=== PATIENT | male | born 1955 | race Caucasian/White ===

== ENCOUNTER 2017-02-20 13:25 | Inpatient (IN) ==
--- NOTE | 2017-02-19 22:55 | Discharge Summary ---
<Syeda Bolivar L - Last Filed: 02/21/17 15:28> Date of Encounter: 02/21/17 - Discharge Diagnosis (1) Arthritis of right hip Priority: Primary Status: Chronic (2) Status post total hip replacement, right Priority: Primary Status: Acute (3) Chronic pain Priority: Secondary Status: Acute Qualifiers: Chronic pain type: chronic pain syndrome Qualified Code(s): G89.4 - Chronic pain syndrome (4) Hypertension Priority: Primary Status: Chronic Qualifiers: Hypertension type: essential hypertension Qualified Code(s): I10 - Essential (primary) hypertension (5) Diabetes mellitus Priority: Secondary Status: Chronic Qualifiers: Diabetes mellitus type: type 2 Diabetes mellitus complication status: without complication Diabetes mellitus nursing home insulin use: unspecified terminal manager insulin use status Qualified Code(s): E11.9 - Type 2 diabetes mellitus without complications (6) CKD (chronic kidney disease), stage IV Priority: Secondary Status: Chronic - Discharge Medications Home Medications: Albuterol Sulfate [Albuterol Inhaler] 2 puff IH Q6HR PRN 06/19/15 [History] Atorvastatin [Lipitor] 10 mg PO HS 06/19/15 [History] Melatonin [Melatin] 3 mg PO HS 06/19/15 [History] Sertraline [Zoloft] 100 mg PO DAILY 06/19/15 [History] traZODone [TraZODone] 300 mg PO HS PRN 06/19/15 [History] Amlodipine [Norvasc] 5 mg PO DAILY 30 Days 06/22/15 [Rx] Aspirin Enteric Coated [Aspirin EC] 325 mg PO DAILY #21 tablet. 02/19/17 [Rx] OxyCODONE Immed Rel [Roxicodone 5 MG] 5 - 10 mg PO Q6HR PRN #40 tablet 02/19/17 [Rx] Baclofen 20 mg PO TID 02/20/17 [History] Pregabalin [Lyrica] 150 mg PO BID 02/20/17 [History] Allergies/Adverse Reactions: Allergies adhesive tape Allergy (Verified 02/20/17 14:17) Hives [facility] - Patient Status Disposition: Home, Self-Care Condition: Good - Discharge Instructions Follow Up With: [facility] [Primary Care Provider] - - Hospital Course Hospital course: Mr. Severino is a 62 year old male - Time Spent with Patient Total time spent providing and/or coordinating discharge services: <Jason Mixon Gadiel - Last Filed: 02/22/17 08:07> Date of Encounter: 02/22/17 Time of Encounter: 08:05 - Discharge Diagnosis (1) Morbid obesity with BMI of 40.0-44.9, adult Priority: Secondary Status: Chronic (2) Hypertension Priority: Secondary Status: Chronic Qualifiers: Hypertension type: essential hypertension Qualified Code(s): I10 - Essential (primary) hypertension (3) Diabetes mellitus Priority: Secondary Status: Chronic Qualifiers: Diabetes mellitus type: type 2 Diabetes mellitus complication status: without complication Diabetes mellitus nursing home insulin use: unspecified nursing home insulin use status Qualified Code(s): E11.9 - Type 2 diabetes mellitus without complications (4) CKD (chronic kidney disease), stage IV Priority: Secondary Status: Chronic (5) Arthritis of right hip Priority: Primary Status: Chronic (6) Status post total hip replacement, right Priority: Primary Status: Acute (7) Chronic pain Priority: Secondary Status: Acute Qualifiers: Chronic pain type: chronic pain syndrome Qualified Code(s): G89.4 - Chronic pain syndrome (8) Acute blood loss anemia Priority: Primary Status: Acute [facility]: [facility] - Patient Status Functional capacity at discharge: uses cane/walker Overall status at discharge: patient is progressing back to baseline - Hospital Course Hospital course: Mr. Severino is a 62 year old male Status post right total hip replacement. Acute blood anemia asymptomatic. The patient had an uneventful postoperative course. They received antibiotics and physical therapy and were discharged in stable condition. There will follow -up in the office in 2 weeks. - Time Spent with Patient Total time spent providing and/or coordinating discharge services:
--- NOTE | 2017-02-20 13:36 | History & Physical Report ---
Date of Encounter: 02/20/17 Time of Encounter: 13:35 24 Hour HP Update - Instructions Instructions: If the History and Physical is less than 30 days old and was completed prior to A.M. admission and or procedure and has NOT been updated on calendar day of procedure please complete this update prior to performing procedure. - Update Patient reports changes in Medical Condition: No Changes in examination, assessment, or condition: No Changes in Medication: No Preop tests/diagnostics Reviewed: Yes Surgery Remains Indicated: Yes Consent for Planned Operative Procedure(s) Verified: Yes - Pre-Operative Checklist Preoperative Checklist Indicated: No Prophylactic Antibiotic Ordered: Yes Is VTE Prophylaxis Indicated?: Yes
[2017-02-20] MEDS ORDERED: *HR* Midazolam HCl 2 MG/2 ML VIAL ONE ×2 (13:39→15:45)
[2017-02-20] MEDS ORDERED: Ondansetron 4 MG/2 ML VIAL ONE ×2 (13:39→16:06)
[2017-02-20] MEDS ORDERED: *HR* FentaNYL (PF) 100 MCG/2 ML VIAL ONE ×2 (13:39→15:45)
[2017-02-20] MEDS ORDERED: *HR* Succinylcholine 200 MG/10 ML VIAL IVP ONE (13:39)
[2017-02-20] MEDS ORDERED: *HR* Propofol 200 MG/20 ML VIAL IVP ONE ×3 (13:39→15:45)
[2017-02-20] MEDS ORDERED: Lidocaine -MPF 2% 2 ML VIAL ONE ×2 (13:39→15:45)
[2017-02-20] MEDS ORDERED: CeFAZolin Pre 2,000 MG/100 ML 2,000 MG/100 ML BAG IVPB ONE (13:46)
[2017-02-20] MEDS ORDERED: CeFAZolin Pre 3,000 MG/100 ML 3,000 MG/100 ML BAG IVPB ONE (13:50)
[2017-02-20] MEDS ORDERED: Ringers Solution, Lactated 1,000 ML IVC SCH ×3 (14:00→18:25)
[2017-02-20] MEDS ORDERED: Famotidine 20 MG/2 ML VIAL IVP ONE (14:15)
[2017-02-20] MEDS ORDERED: Acetaminophen IV 1,000 MG/100 ML INFUS..BTL IVPB ONE (14:16)
[2017-02-20] MEDS ORDERED: Gabapentin 300 MG CAPSULE PO ONE (14:16)
--- NOTE | 2017-02-20 14:24 | Anesthesia Evaluation PreOp ---
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 Significant HX Other Medical History: Renal (CKD Stage 3), Diabetes Type II, Other (Obese) Anesthesia History: No Prior Anesthetic Complications Alcohol Use: none Drug use: none Medications and Allergies Albuterol Sulfate [Albuterol Inhaler] 2 puff IH Q6HR PRN 06/19/15 [History] Atorvastatin [Lipitor] 10 mg PO HS 06/19/15 [History] Melatonin [Melatin] 3 mg PO HS 06/19/15 [History] Sertraline [Zoloft] 100 mg PO DAILY 06/19/15 [History] traZODone [TraZODone] 300 mg PO HS PRN 06/19/15 [History] Amlodipine [Norvasc] 5 mg PO DAILY 30 Days 06/22/15 [Rx] Aspirin Enteric Coated [Aspirin EC] 325 mg PO DAILY #21 tablet. 02/19/17 [Rx] OxyCODONE Immed Rel [Roxicodone 5 MG] 5 - 10 mg PO Q6HR PRN #40 tablet 02/19/17 [Rx] Baclofen [Baclofen] 20 mg PO TID 02/20/17 [History] Pregabalin [Lyrica] 150 mg PO BID 02/20/17 [History] Allergies adhesive tape Allergy (Verified 02/20/17 14:17) Hives - Meds/Allergy Pre-op Review Medications Reviewed: Yes Allergies Reviewed: Yes Beta Blockers on Current Med List: No Anesthesia Results - Labs Laboratory Tests 02/17/17 02/17/17 16:10 16:10 Hgb 13.9 Hct 43.1 Plt Count 253 Sodium 141 Potassium 4.7 H BUN 29 H Creatinine 1.86 H - Imaging EKG: report reviewed (SR Incomplete Rt BBB) Anesthesia Exam O2 Sat Height 1.85 m Height 1.85 m Weight 135.624 kg Weight 135.624 kg O2 Sat by Pulse Oximetry 96 Vital Signs Temp Pulse Resp BP Pulse Ox 98.2 F 73 18 145/87 96 02/20/17 13:40 02/20/17 13:40 02/20/17 13:40 02/20/17 13:40 02/20/17 13:40 Height: 6'1 Weight: 299 lbs NPO (# of Hours): MN Pain Scale: 0 - HEENT Pupil (Motor): Pupils equal, EOMI Mallampati: III Teeth: Normal Oral Opening: Less than or equal to 3 - YARN TEXTURE MACHINE OPERATOR LOC: Oriented YARN TEXTURE MACHINE OPERATOR Motor: Normal RUE, Normal LUE, Normal RLE, Normal LLE, Normal Face YARN TEXTURE MACHINE OPERATOR Sensory: Normal: RUE, LUE, RLE, LLE, Face - Cardiac Rhythm: Regular Murmur: None JVD: No Carotid Bruit: No - Pulmonary Breath Sounds: bilateral Clear Respiratory Effort: Symmetrical Anesthesia Assess/Plan ASA Score: 3 (HTN DM CKD) Modified Nasreen Scale for Level of Consciousness: Cooperative, oriented, and tranquil Anesthetic Plan: General, Regional Monitoring Plan: Standard Monitors Recovery Plan: PACU (Discussed GA, agrees to proceed)
[2017-02-20] MEDS ORDERED: Dexamethasone 4 MG/ML VIAL ONE (16:06)
[2017-02-20] MEDS ORDERED: *HR* HYDROmorphone 2 MG/ML SYRINGE ONE (16:10)
[2017-02-20] MEDS ORDERED: Albuterol 2.5 MG/3 ML NEBULIZER IH ONE (16:11)
[2017-02-20] MEDS ORDERED: *HR* Meperidine 25 MG/ML SYRINGE IVP PRN (16:11)
[2017-02-20] MEDS ORDERED: Ondansetron 4 MG/2 ML VIAL IVP ONE (16:11)
[2017-02-20] MEDS ORDERED: *HR* Labetalol 20 MG/4 ML SYRINGE IVP PRN (16:11)
[2017-02-20] MEDS ORDERED: Naloxone 0.4 MG/ML INJ IVP PRN ×2 (16:11→18:25)
--- NOTE | 2017-02-20 17:00 | Orthopedic Operative Note ---
Date of procedure: 02/20/17 Pre-op diagnosis: right hip arthritis Post-op diagnosis: same Procedure: Procedure: Right Total Hip Replacment Estimated blood loss: 300 cc Hardware: Metal and polyethylene replacement. Biomet DM Cup: 60 G7 fin cup Priscilla revision stem: 15 x 1 50 sized a 50 mm body Head: head with Anali +3 Procedural Notes: Grade 4 arthritic changes femoral head acetabular socket patient noted to have calcar insufficiency during preparation of femur decision was made at this time to convert to Priscilla revision stem for distal fixation. Since there was a concern that proximal fixation was compromised. Operative procedure: The patient was brought to the operating room and placed on the operating room table. After general anesthesia was administered the patient was placed in the lateral decubitus position with the operative leg up. All pressure points were padded appropriately and the head was stabilized in the neutral position. The operative extremity was prepped and draped in the sterile surgical fashion patient received IV antibiotic prior to skin incision. A standard posterior approach is made to the operative hip, the incision was made through the skin and subcutaneous tissue hemostasis was obtained with Bovie cautery. Using careful sharp dissection the fascia was identified and incised exposing the external rotators. The external rotators were released off the greater trochanter and tagged with #2 FiberWire suture. The capsule was T'd open and the hip was brought into internal rotation. Patient noted to have grade 4 arthritic changes femoral head. The femoral neck cut was made at the appropriate level. An anterior capsulotomy was performed for the anterior retractor. Soft tissues removed from the acetabulum. Patient noted to have grade 4 arthritic changes acetabulum. Acetabulum was first reamed medially, and then reamed in 15 degrees of anteversion and 45 degrees off the horizontal. It was reamed up to the appropriate size 60 The appropriate-sized 60 acetabular cup was impacted in place in 15 degrees of anteversion and 45 degrees off the horizontal. This had good fit and fixation. The hip was brought back in to internal rotation and prepared with the box hinge and lock attacher followed by the canal finder followed by broaching process in 20 degrees anteversion. It was noted during preparation that there was calcar insufficiency proximal and that proximal fixation could not be obtained. The femur was then reamed distally to 15 x 150. A 15 x [address] stem was impacted in place. It was reamed proximally to a size A. Trial reduction in 20 degrees of anteversion and found the hip to be reducible. The real size A body was impacted in place and secured in 20 degrees of anteversion. Trial reduction found the hip to be stable with +3 head and Anali. The trials were removed and the real implants were impacted in place. The hip was reduced, patient had apparent equal leg lengths. The hip had excellent stability with forward flexion to 90 degrees adduction of 30 degrees and internal rotation of 60 degrees. The hip had no shuck. The hips after 2 minutes with a Betadine saline solution. It was irrigated out with 2 L of pulse irrigation. The hip was closed by the YOSVANY Hurtado. Fascia was closed with a running #2 PDS suture. The deep tissue was irrigated and closed deep with #1 PDS suture superficially with 0 PDS suture and skin was closed with Dermabond and skin fernando. The patient was placed in a sterile dressing and abduction pillow. The patient was extubated and transferred to the recovery room in stable condition. Anesthesia: GETA Surgeon: Jason Mixon Condition: stable Disposition: PACU
[2017-02-20] MEDS ORDERED: EPHEDrine 50 MG/ML VIAL ONE (17:01)
[2017-02-20] MEDS: *HR* HYDROmorphone (PF) 1 MG/ML SYRINGE IVP PRN ×5 (17:29→20:44)
[2017-02-20] MEDS ORDERED: *HR* Enoxaparin 30 MG/0.3 ML SYRINGE SQ SCH (18:00)
[2017-02-20 18:13] LABS: Hematocrit 40.1 % (37.5-50.1); Hemoglobin 13.2 g/dL (12.9-16.9)
[2017-02-20] MEDS ORDERED: *HR* Dextrose 50 % in Water (Syg) 50 ML SYRINGE IVP PRN (18:25)
[2017-02-20] MEDS ORDERED: D5% in Water 1,000 ML IVC PRN (18:25)
[2017-02-20] MEDS ORDERED: *HR* OxyCODONE Immed Rel 5 MG TABLET PO PRN (18:25)
[2017-02-20] MEDS ORDERED: ceFAZolin 3,000 MG in D5% in Water 100 ML IVPB SCH (18:25)
[2017-02-20] MEDS ORDERED: Dextrose Gel 15 GM PO PRN ×2 (18:25)
[2017-02-20] MEDS ORDERED: Ondansetron 4 MG/2 ML VIAL IVP PRN (18:25)
[2017-02-20] MEDS: Ascorbic Acid 500 MG TABLET PO SCH (18:39)
[2017-02-20] MEDS: Insulin LISPRO 300 UNITS/3 ML VIAL SQ SCH ×2 (18:46→21:30)
[2017-02-20] MEDS: *HR* OxyCODONE Immed Rel 5 MG TABLET PO PRN ×2 (18:47→23:01)
--- NOTE | 2017-02-20 19:03 | Anesthesia Evaluation Post Op ---
Date of Encounter: 02/20/17 Time of Encounter: 18:50 - Vital Signs Vital Signs: Last Vital Signs Temp 97.8 F 02/20/17 18:59 Pulse 73 02/20/17 18:59 Resp 18 02/20/17 18:59 BP 128/76 02/20/17 18:59 Pulse Ox 97 02/20/17 18:59 - Lungs Lungs: Clear Ascult./Percussion - Airway Airway: Non-obstructed - Cardiovascular Regular Rate - Mental Status Mental Status: Alert & Oriented, Answers Appropriately - Pain Pain Scale: 2 - Nausea Vomiting Nausea Vomiting: Not Present - Hydration Hydration: NPO - Discharge PostOp Status: Transfer Patient to floor
[2017-02-20] MEDS: Melatonin 3 MG TABLET PO SCH (20:44)
[2017-02-20] MEDS: Baclofen 10 MG TABLET PO SCH (20:44)
[2017-02-20] MEDS: Pregabalin 75 MG CAPSULE PO SCH (20:44)
[2017-02-20] MEDS ORDERED: Temazepam 15 MG CAPSULE PO PRN (21:00)
[2017-02-20] MEDS ORDERED: traZODone 50 MG TABLET PO PRN (21:00)
[2017-02-20] MEDS ORDERED: Sennosides 8.6 MG TABLET PO PRN (21:00)
[2017-02-20] MEDS ORDERED: MOM Conc 10 ML UD.LIQ PO PRN (21:00)
[2017-02-20] MEDS: ceFAZolin 3,000 MG in D5% in Water 100 ML IVPB SCH (22:55)
[2017-02-21] MEDS: *HR* HYDROmorphone (PF) 1 MG/ML SYRINGE IVP PRN ×3 (02:16→19:06)
[2017-02-21] MEDS: *HR* OxyCODONE Immed Rel 5 MG TABLET PO PRN ×4 (04:15→21:22)
[2017-02-21 06:01] LABS: Hematocrit 36.5 % (37.5-50.1); Hemoglobin 11.9 g/dL (12.9-16.9)
[2017-02-21] MEDS: ceFAZolin 3,000 MG in D5% in Water 100 ML IVPB SCH (06:16)
[2017-02-21] MEDS: *HR* Enoxaparin 30 MG/0.3 ML SYRINGE SQ SCH ×2 (06:16→17:36)
[2017-02-21 06:18] LABS: Calcium 8.8 mg/dL (8.6-10.8); Potassium 5.4 mEq/L (3.5-4.5)
--- NOTE | 2017-02-21 06:29 | Orthopedics Progress Note ---
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 Afebrile vital signs stable. Operative extremity: Neurovascularly intact Dressing clean dry and intact Calves nontender Assessment and plan: Continue with postoperative care Hematocrit 36 Objective Vital signs: Vital Signs Temp Pulse Resp BP Pulse Ox 02/21/17 06:24 70 160/83 02/21/17 04:54 97.8 F 81 22 166/76 93 02/21/17 00:08 97.8 F 76 20 145/79 92 02/20/17 21:13 97.7 F 70 16 117/72 96 02/20/17 19:53 97.8 F 74 18 128/67 98 02/20/17 18:59 97.8 F 73 18 128/76 97 02/20/17 18:42 97.6 F 74 16 151/74 97 02/20/17 18:05 97.9 F 72 12 151/76 95 02/20/17 17:55 97.9 F 75 16 142/78 93 02/20/17 17:45 82 16 155/86 94 02/20/17 17:35 88 16 188/104 95 02/20/17 17:25 97.4 F L 86 16 153/95 94 02/20/17 13:40 98.2 F 73 18 145/87 96 Intake and Output 02/20/17 02/20/17 02/21/17 15:59 23:59 07:59 Intake Total 100 / 100 900 / 900 Output Total 300 / 300 200 / 200 Balance -200 / -200 700 / 700 Intake: IV Fluids 100 / 100 100 / 100 Ancef Premix 3,000 MG/100 100 / 100 ML 3,000 mg In 100 ml @ 200 mls/hr IVPB PREOP ONE Rx#:[id number] Ancef 3,000 MG In 100 / 100 Dextrose 5% 100 ML @ 200 mls/hr IVPB Q8H JOSH Rx#: [id number] Oral 0 / 0 800 / 800 Output: Urine 200 / 200 Estimated Blood Loss 300 / 300 Other: Weight 135.624 kg Blood Glucose* 142 180 - Labs CBC & BMP: 02/21/17 04:49 02/21/17 04:49 Labs: Abnormal lab results Hgb 11.9 g/dL (12.9-16.9) L 02/21/17 04:49 Hct 36.5 % (37.5-50.1) L 02/21/17 04:49 Potassium 5.4 mEq/L (3.5-4.5) H 02/21/17 04:49 BUN 33 mg/dL (8-26) H 02/21/17 04:49 Creatinine 2.15 mg/dL (0.72-1.25) H 02/21/17 04:49 Est GFR ( Amer) 38 (> 60) L 02/21/17 04:49 Est GFR (Non-Af Amer) 31 (> 60) L 02/21/17 04:49 Glucose 259 mg/dL (70-99) H 02/21/17 04:49 POC Glucose 186 (58-89) H 02/20/17 21:23 Calculated Osmolality 306 (280-300) H 02/21/17 04:49 - VTE Documentation of Mechanical Device: Venous foot pump, device Consult Discharge Plan - Plan [facility]errals: [facility] [Primary Care Provider] -
[2017-02-21] MEDS: Insulin LISPRO 300 UNITS/3 ML VIAL SQ SCH ×4 (08:43→21:19)
[2017-02-21] MEDS: Multivit/Ca/Min/Fe/FA 1 TAB TABLET PO SCH (08:44)
[2017-02-21] MEDS: Pregabalin 75 MG CAPSULE PO SCH ×2 (08:45→21:19)
[2017-02-21] MEDS: amLODIPine 5 MG TABLET PO SCH (08:45)
[2017-02-21] MEDS: Ascorbic Acid 500 MG TABLET PO SCH ×2 (08:45→17:36)
[2017-02-21] MEDS: Baclofen 10 MG TABLET PO SCH ×3 (08:46→21:19)
--- NOTE | 2017-02-21 12:10 | Event Note ---
Date of Encounter: 02/21/17 Time of Encounter: 12:06 PCR - POD#1 - Right THR 02/20/17 Patient seen at bedside. History includes CKD III which he last saw job placement specialist 02/13/17 - Labs are relatively unchanged from his baseline GFR. Creatine slightly elevated and hyperkalemia noted. Asymptomatic, EKG normal. Will continue to encourage oral hydration as well as IV hydration. He also has BPH - ensuring he is taking appropriate medications and also avoiding Nephrotoxic agents. Pain control: adequate - he would like to D/C IV - so we will D/C IV - chronic pain - takes Percocet 5/325 BID Participating in PT. All questions and concerns addressed. Educated on use of incentive spirometer, ambulation, and hydration. Patient educated on post-operative restrictions and care. Addressed: Renal monitoring D/C plan: Possible ECF or HH placement, will await PT reassessment before placing continuities in chart.
[2017-02-21] MEDS ORDERED: D5% in Water 1,000 ML IVC PRN (13:19)
[2017-02-21] MEDS ORDERED: Dextrose Gel 15 GM PO PRN ×2 (13:19)
[2017-02-21] MEDS ORDERED: *HR* Dextrose 50 % in Water (Syg) 50 ML SYRINGE IVP PRN (13:19)
--- NOTE | 2017-02-21 15:33 | Electrocardiograph Report ---
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
[2017-02-21] MEDS: Melatonin 3 MG TABLET PO SCH (21:19)
[2017-02-22 05:06] LABS: Hematocrit 29.1 % (37.5-50.1)
[2017-02-22 05:26] LABS: Hemoglobin 9.8 g/dL (12.9-16.9)
[2017-02-22 05:27] LABS: Calcium 8.5 mg/dL (8.6-10.8); Potassium 4.2 mEq/L (3.5-4.5)
[2017-02-22] MEDS: *HR* Enoxaparin 30 MG/0.3 ML SYRINGE SQ SCH ×2 (05:27→17:32)
--- NOTE | 2017-02-22 08:08 | Orthopedics Progress Note ---
Date of Encounter: 02/22/17 Time of Encounter: 08:07 - Assessment and Plan (1) Morbid obesity with BMI of 40.0-44.9, adult Current Visit: Yes Status: Chronic (2) Hypertension Current Visit: No Status: Chronic Qualifiers: Hypertension type: essential hypertension Qualified Code(s): I10 - Essential (primary) hypertension (3) Diabetes mellitus Current Visit: No Status: Chronic Qualifiers: Diabetes mellitus type: type 2 Diabetes mellitus complication status: without complication Diabetes mellitus terminal operator insulin use: unspecified skilled nursing insulin use status Qualified Code(s): E11.9 - Type 2 diabetes mellitus without complications (4) CKD (chronic kidney disease), stage IV Current Visit: No Status: Chronic (5) Arthritis of right hip Current Visit: Yes Status: Chronic (6) Status post total hip replacement, right Current Visit: Yes Status: Acute (7) Chronic pain Current Visit: Yes Status: Acute Qualifiers: Chronic pain type: chronic pain syndrome Qualified Code(s): G89.4 - Chronic pain syndrome (8) Acute blood loss anemia Current Visit: Yes Status: Acute Subjective Interval history: Patient was seen this morning doing well without complaints. Afebrile vital signs stable. Operative extremity: Neurovascularly intact Dressing clean dry and intact Calves nontender Assessment and plan: Continue with postoperative care hemoglobin 9.8 asymptomatic DC today Objective Vital signs: Vital Signs Temp Pulse Resp BP Pulse Ox 02/22/17 07:05 99.0 F 85 16 149/80 95 02/22/17 03:46 99.6 F 91 18 105/67 94 02/21/17 23:46 99.2 F 81 15 137/56 94 02/21/17 19:43 99.9 F H 95 18 136/71 90 02/21/17 15:25 97.4 F L 83 18 134/69 94 02/21/17 11:25 97.7 F 85 18 150/69 95 Intake and Output 02/21/17 02/22/17 02/22/17 23:59 07:59 15:59 Intake Total 400 / 400 Output Total 150 / 150 800 / 800 Balance 250 / 250 -800 / -800 Intake: Oral 400 / 400 Output: Urine 150 / 150 800 / 800 Other: # Voids 1 Weight 136.6 kg Blood Glucose* 184 Patient Weight 02/22/17 23:59 Weight 136.6 kg - Labs CBC & BMP: 08/02/17 04:28 02/22/17 04:28 Labs: Abnormal lab results Hgb 9.8 g/dL (12.9-16.9) L D 02/22/17 04:28 Hct 29.1 % (37.5-50.1) L 02/22/17 04:28 BUN 40 mg/dL (8-26) H 02/22/17 04:28 Creatinine 2.26 mg/dL (0.72-1.25) H 02/22/17 04:28 Est GFR ( Amer) 36 (> 60) L 02/22/17 04:28 Est GFR (Non-Af Amer) 30 (> 60) L 02/22/17 04:28 Glucose 268 mg/dL (70-99) H 02/22/17 04:28 POC Glucose 283 (58-89) H 02/22/17 07:16 Calculated Osmolality 303 (280-300) H 02/22/17 04:28 Calcium 8.5 mg/dL (8.6-10.8) L 02/22/17 04:28 - VTE Documentation of Mechanical Device: Venous foot pump, device Consult Discharge Plan - Plan Referrals: [facility] [Primary Care Provider] -
[2017-02-22] MEDS: Insulin LISPRO 300 UNITS/3 ML VIAL SQ SCH ×4 (08:32→21:27)
[2017-02-22] MEDS: Pregabalin 75 MG CAPSULE PO SCH ×2 (08:34→22:13)
[2017-02-22] MEDS: amLODIPine 5 MG TABLET PO SCH (08:34)
[2017-02-22] MEDS: Ascorbic Acid 500 MG TABLET PO SCH ×2 (08:34→16:06)
[2017-02-22] MEDS: Multivit/Ca/Min/Fe/FA 1 TAB TABLET PO SCH (08:35)
[2017-02-22] MEDS: Baclofen 10 MG TABLET PO SCH ×3 (08:35→21:27)
--- NOTE | 2017-02-22 12:24 | Event Note ---
Date of Encounter: 02/22/17 Time of Encounter: 12:30 PCR - POD#2 - Right THR 02/20/17 Patient seen at bedside. 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 Mild bump in creatine and drop in GFR since surgery but still in stage III range. Potassium down to 4.2 today. Glucose elevated - sliding scale adjusted for improved coverage. Will continue to encourage oral hydration as well as IV hydration. He also has BPH - ensuring he is taking appropriate medications and also avoiding Nephrotoxic agents. Pain control: adequate - chronic pain - takes Percocet 5/325 BID Participating in PT. All questions and concerns addressed. Educated on use of incentive spirometer, ambulation, and hydration. Patient educated on post-operative restrictions and care. Addressed: Renal monitoring - Courtesy notice given to Dr. Darrion Byrd, his Service Architect of his status - discussed that likely his elevated glucose may be contributing to his changing labs. No official consult needed today, but will plan to repeat labs again in the morning and consult if creatinine rising rapidly. D/C plan: Possible ECF or HH placement, will await PT reassessment. Patient requesting ECF during today's PCR.
[2017-02-22] MEDS: Insulin DETEMIR 100 UNIT/ML X5UNITS SQ SCH (16:06)
[2017-02-22] MEDS: *HR* OxyCODONE Immed Rel 5 MG TABLET PO PRN ×2 (16:13→21:34)
--- NOTE | 2017-02-22 16:29 | Physician Discharge Referral ---
ExtendedCare Referral Info Transfer To: F Provider in Charge after Transfer: PCP Institutional Level of Care: Skilled - Diagnosis (1) Arthritis of right hip Priority: Primary Status: Chronic (2) Status post total hip replacement, right Priority: Primary Status: Acute (3) Chronic pain Priority: Secondary Status: Acute (4) Hypertension Priority: Secondary Status: Chronic (5) Diabetes mellitus Priority: Secondary Status: Chronic (6) CKD (chronic kidney disease), stage IV Priority: Secondary Status: Chronic Expected Duration of Placement: <30 days Prognosis: Good Aware of Diagnosis: Patient Aware of Prognosis: Patient - Transfer Medications Home Medications: Albuterol Sulfate [Albuterol Inhaler] 2 puff IH Q6HR PRN 06/19/15 [History] Atorvastatin [Lipitor] 10 mg PO HS 06/19/15 [History] Melatonin [Melatin] 3 mg PO HS 06/19/15 [History] Sertraline [Zoloft] 100 mg PO DAILY 06/19/15 [History] traZODone [TraZODone] 300 mg PO HS PRN 06/19/15 [History] Amlodipine [Norvasc] 5 mg PO DAILY 30 Days 06/22/15 [Rx] Aspirin Enteric Coated [Aspirin EC] 325 mg PO DAILY #21 tablet. 02/19/17 [Rx] OxyCODONE Immed Rel [Roxicodone 5 MG] 5 - 10 mg PO Q6HR PRN #40 tablet 02/19/17 [Rx] Baclofen 20 mg PO TID 02/20/17 [History] Pregabalin [Lyrica] 150 mg PO BID 02/20/17 [History] Allergies/Adverse Reactions: Allergies adhesive tape Allergy (Verified 02/20/17 14:17) Hives - Respiratory Orders None Smoking Cessation: Smoking cessation has been advised. For more information, call the [place] Tobacco Quit Line at 9-678-ELIM-NOW. - Lab Orders Lab Orders: CBC, Other (include drug levels w/frequency) (BMP - renal panel* CKD III) - Ancillary Orders May use pressure relief devices daily prn, May go on RANDALL w/family/respon alliance party w /meds at nurse discretion PRN, May consult with Dentist, Customer Service Teller, Painter Touch Up PRN - Mobility Orders Chair, Ambulate - Rehabiliation Orders Rehab Potential: Good Rehab Orders: ROM Exercises, Evaluation for Physical Therapy, Evaluation for Occupational Therapy - Treatments List/Other: Opsite dressing, leave intact until first post-operative visit. If dressing becomes >50% saturated, contact office, remove dressing and place appropriate dressing in its place. Do not allow for dressing to get wet. [place] in place, plan to remove at post-operative day #14-16. Total Joint Precautions x 6 weeks Apply cold therapy wrap 3-6x/day for 20 minutes at a time. Encourage ambulation throughout the day Use Incentive spirometer 10x/hour. Elevate affected extremity above heart as tolerated. Brace: Wear knee immobilizer at night x 2 weeks. - Diet Orders Renal CERTIFICATION: I certify that the transfer of the above named patient to an Extended Care Facility is necessary for the continuing treatment of the diagnosis listed. The above information is true and accurate reflection of patient's current condition. Confidential - Redisclosure prohibited without a patient's written consent.
[2017-02-22] MEDS: Melatonin 3 MG TABLET PO SCH (21:27)
[2017-02-23 01:36] LABS: Calcium 8.7 mg/dL (8.6-10.8); Potassium 3.8 mEq/L (3.5-4.5)
[2017-02-23] MEDS: *HR* OxyCODONE Immed Rel 5 MG TABLET PO PRN (04:40)
[2017-02-23] MEDS: *HR* Enoxaparin 30 MG/0.3 ML SYRINGE SQ SCH (05:49)
--- NOTE | 2017-02-23 06:27 | Orthopedics Progress Note ---
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 insulin use: unspecified mcc insulin use status Qualified Code(s): E11.9 - Type 2 diabetes mellitus without complications (4) CKD (chronic kidney disease), stage IV Current Visit: No Status: Chronic (5) Arthritis of right hip Current Visit: Yes Status: Chronic (6) Status post total hip replacement, right Current Visit: Yes Status: Acute (7) Chronic pain Current Visit: Yes Status: Acute Qualifiers: Chronic pain type: chronic pain syndrome Qualified Code(s): G89.4 - Chronic pain syndrome (8) Acute blood loss anemia Current Visit: Yes Status: Acute Subjective Interval history: Patient was seen this morning doing well without complaints. Afebrile vital signs stable. Operative extremity: Neurovascularly intact Dressing clean dry and intact Calves nontender Assessment and plan: Continue with postoperative care DC today Objective Vital signs: Vital Signs Temp Pulse Resp BP Pulse Ox 02/23/17 00:37 98.5 F 78 20 138/79 91 02/22/17 22:25 99.0 F 95 19 153/75 95 02/22/17 15:29 99.2 F 85 18 162/72 92 02/22/17 11:00 99.3 F 95 18 151/75 92 02/22/17 07:05 99.0 F 85 16 149/80 95 Intake and Output 02/22/17 02/22/17 02/23/17 15:59 23:59 07:59 Intake Total 760 / 760 320 / 320 Output Total 600 / 600 1325 / 1325 100 / 100 Balance 160 / 160 -1005 / -1005 -100 / -100 Intake: Oral 760 / 760 320 / 320 Output: Urine 300 / 300 600 / 600 100 / 100 Catheter 300 / 300 725 / 725 Other: Meal Lunch Percent of Meal Consumed 100% Blood Glucose* 224 248 - Labs CBC & BMP: 02/22/17 04:28 02/23/17 00:31 Labs: Abnormal lab results Hgb 9.8 g/dL (12.9-16.9) L D 02/22/17 04:28 Hct 29.1 % (37.5-50.1) L 02/22/17 04:28 BUN 40 mg/dL (8-26) H 02/23/17 00:31 Creatinine 2.20 mg/dL (0.72-1.25) H 02/23/17 00:31 Est GFR ( Amer) 37 (> 60) L 02/23/17 00:31 Est GFR (Non-Af Amer) 30 (> 60) L 02/23/17 00:31 Glucose 219 mg/dL (70-99) H 02/23/17 00:31 POC Glucose 224 (58-89) H 02/22/17 15:56 - VTE Documentation of Mechanical Device: Intermittent pneumatic compression device Consult Discharge Plan - Plan [facility]errals: [facility] [Primary Care Provider] -
[2017-02-23] MEDS: amLODIPine 5 MG TABLET PO SCH (07:59)
[2017-02-23] MEDS: Insulin LISPRO 300 UNITS/3 ML VIAL SQ SCH ×2 (08:00→11:46)
[2017-02-23] MEDS: Ascorbic Acid 500 MG TABLET PO SCH (08:00)
[2017-02-23] MEDS: Baclofen 10 MG TABLET PO SCH (08:00)
[2017-02-23] MEDS: Multivit/Ca/Min/Fe/FA 1 TAB TABLET PO SCH (08:00)
[2017-02-23] MEDS: Pregabalin 75 MG CAPSULE PO SCH (08:00)
[2017-02-23] MEDS: Insulin DETEMIR 100 UNIT/ML X5UNITS SQ SCH (09:06)
[2017-02-23 11:28] VITALS: BP 133/70
--- NOTE | 2017-02-23 11:36 | Event Note ---
Date of Encounter: 02/23/17 Time of Encounter: 11:34 PCR - POD#3 - Right THR 02/20/17 H/H 8.04/19 - Asymptomatic Patient seen at bedside. History includes CKD III which he last saw physical education aide 02/13/17 - Labs are relatively unchanged from his baseline GFR and Creatinine. Renal panel stable since surgery but still in stage III range. Potassium normalized. Glucose elevated - sliding scale adjusted for improved coverage. Will continue to encourage oral hydration as well as IV hydration. He also has BPH - ensuring he is taking appropriate medications and also avoiding Nephrotoxic agents. Pain control: adequate - chronic pain - takes Percocet 5/325 BID Participating in PT. All questions and concerns addressed. Educated on use of incentive spirometer, ambulation, and hydration. Patient educated on post-operative restrictions and care. Addressed: Renal monitoring - Courtesy notice given to Dr. Darrion Byrd, his Accelerator Technician of his status yesterday - discussed that likely his elevated glucose may be contributing to his changing labs. No official consult needed but will plan to repeat labs again in the morning and consult if creatinine rising rapidly. D/C plan: ECF placement. [facility] D/C today
[2017-02-23 12:21] LABS: Hematocrit 27.2 % (37.5-50.1); Hemoglobin 8.9 g/dL (12.9-16.9)
== END 2017-02-23 14:05 | disposition home or self-care (01) | DRG 470 ==
LOC: SAMDAY 13:25 → 3NENU 18:08
PROVIDERS: ADMIT Orthopaedic Surgery; ATTEND Orthopaedic Surgery

== ENCOUNTER 2017-10-30 08:26 | Inpatient (IN) ==
[2017-10-30] MEDS ORDERED: Aminoglycoside Consult 1 EACH MC ONE (08:33)
--- NOTE | 2017-10-30 10:23 | Internal Med History&Physical ---
Date of Encounter: 10/30/17 Time of Encounter: 10:16 Assessment and Plan (1) Aspiration pneumonia Current visit: Yes Status: Acute Patient transfer will consult some of aspiration pneumonia is unclear if patient has aspiration pneumonia from conflicting x-rays is not having any complaint productive cough no respiratory symptoms per se Qualifiers: Aspiration pneumonia type: unspecified Laterality: bilateral Lung location: lower lobe of lung Qualified Code(s): J69.0 - Pneumonitis due to inhalation of food and vomit (2) Septic joint of left knee joint Current visit: Yes Status: Acute Patient had a recent left knee surgery with a recent fall on the knee with the swelling and warmth consult for septic arthritis will consult orthopedic Qualifiers: Septic arthritis organism: due to unspecified organism Qualified Code(s): M00.9 - Pyogenic arthritis, unspecified (3) Leukocytosis Current visit: Yes Status: Acute Leukocytosis likely secondary to infected left main Qualifiers: Leukocytosis type: bandemia Qualified Code(s): D72.825 - Bandemia (4) Falls frequently Current visit: Yes Status: Acute Patient noted 2 over chronic opiate use and has a patch has been there for more than a week possible has been drowsy from narcotic was given Narcan also an outside hospital ABG is unremarkable (5) NANI (acute kidney injury) Current visit: No Status: Acute Acute on chronic kidney injury with continue IV hydration (6) Hypertension Current visit: No Status: Chronic Chronic and on control will resume home medication and make some adjustment Qualifiers: Hypertension type: essential hypertension Qualified Code(s): I10 - Essential (primary) hypertension (7) Diabetes mellitus Current visit: No Status: Chronic Chronic had episode of hypoglycemia patient can eat and will place on sliding scale Qualifiers: Diabetes mellitus type: type 2 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 Severino is a 62 year old male Patient with the transferred from [facility] . Patient with history of hypertension, diabetes, obesity, depression and high cholesterol. Patient had a recent surgery to left knee October 16 has follow-up appointment with orthopedics surgeon on November 04. Patient has been somewhat confused in the last few days has had multiple fall and then while getting out of commode he fell again on his left knee of which he has surgery with increased pain and swelling but did not want to come to emergency room but the son decided to call EMS and brought him to the emergency room [facility] Emergency room evaluation patient was somewhat somnolent basic Accu-Chek was of 59 given amp of D50 and then he woke up. Because of positive d-dimer and CT A of the chest was done which showed no pulmonary embolism but the conflicting x-ray showed bilateral consolidation concern for aspiration pneumonia. Patient left knee was also swollen and warm and hot the same knee that he had surgery concern for septic arthritis patient was given vancomycin and Zosyn then transfer on arrival here he is awake able to answer questions appropriately. Patient will be admitted will continue him on Zosyn and vancomycin consult orthopedic for possible septic knee or hamathrosis and consult ID as well. He is not having any fever or chills not coughing up phlem Past Med Surg Social Fam HX - Past Medical History Medical history: diabetes, hypertension Psychiatric history: no psych history - Past Surgical History Surgical History: appendectomy, knee replacement, orthopedic, other - Social History Smoking Status: Former smoker Smokeless Tobacco Status: No Alcohol use: none Drug use: none - Family History Father Adopted: No Living Status: Hx Family Cardiac Disorders: Yes (Patients father from an [place]. He states that it was his 7th [place].) Hx Family Respiratory Disorders: No Hx Family Cancer: No Hx Family GI Disorders: No Hx Family Endocrine Disorder: No Hx Family Neuromuscular Disorders: No Hx Family Neurologic Disorders: No Hx Family HEENT Disorders: No Hx Family Autoimmune Disorders: No Internal Medicine - H&P: Meds Albuterol Sulfate [Albuterol Inhaler] 2 puff IH Q6HR PRN 06/19/15 [History] Atorvastatin [Lipitor] 10 mg PO HS 06/19/15 [History] Melatonin [Melatin] 3 mg PO HS 06/19/15 [History] Sertraline [Zoloft] 100 mg PO DAILY 06/19/15 [History] traZODone [TraZODone] 300 mg PO HS PRN 06/19/15 [History] Amlodipine [Norvasc] 5 mg PO DAILY 30 Days tablet 06/22/15 [Rx] Aspirin Enteric Coated [Aspirin EC] 325 mg PO DAILY #21 tablet. 02/19/17 [Rx] OxyCODONE Immed Rel [Roxicodone 5 MG] 5 - 10 mg PO Q6HR PRN #40 tablet 02/19/17 [Rx] Baclofen 20 mg PO TID 02/20/17 [History] Pregabalin [Lyrica] 150 mg PO BID 02/20/17 [History] 3 Allergy/AdvReac Type Severity Reaction Status Date / Time adhesive tape Allergy Hives Verified 02/20/17 14:17 All Systems PM: A 10-system review of systems was performed and is negative for pertinent findings except as documented above in the HPI. - Constitutional Constitutional: as per HPI, fatigue, lethargy - EENT Eyes: no change in vision, no discharge, no pain, no photophobia Ears: no ear discharge, no ear pain, no tinnitus Nose, mouth and throat: no dysphagia, no nasal discharge, no neck pain, no sore throat - Cardiovascular Cardiovascular ROS IM: no chest pain, no diaphoresis, no dyspnea, no lightheadedness, no palpitations, no syncope - Respiratory Respiratory: dyspnea - Gastrointestinal Gastrointestinal: no abdominal pain, no diarrhea, no hematemesis, no hematochezia, no melena, no nausea, no vomiting - Musculoskeletal Musculoskeletal ROS IM: as per HPI, stiffness, no numbness, no tingling - Eye Eye exam: Present: PERRL, conjuntiva pink, sclera anicteric Pupils: Present: PERRL - Neck Neck exam general surgery: Present: supple, trachea midline. Absent: lymphadenopathy - Respiratory Respiratory exam: Present: CTAB. Absent: accessory muscle use, rales, rhonchi, wheezes - Cardiovascular Cardiovascular exam: Present: RRR, +S1, +S2. Absent: diastolic murmur, gallop, rubs, systolic murmur - GI/Abdominal GI/Abdominal exam: Present: normal bowel sounds, soft, no peritoneal signs. Absent: distended, tenderness - Extremities Exam Extremities exam: Present: tenderness, warm
[2017-10-30] MEDS ORDERED: Naloxone 0.4 MG/ML INJ IVP PRN (10:32)
[2017-10-30] MEDS ORDERED: Dextrose Gel 15 GM/37.5 ML TUBE PO PRN ×2 (10:37)
[2017-10-30] MEDS ORDERED: *HR* Dextrose 50 % in Water (Syg) 50 ML SYRINGE IVP PRN (10:37)
[2017-10-30] MEDS ORDERED: D5% in Water 1,000 ML IVC PRN (10:37)
[2017-10-30] MEDS: 0.9 % Sodium Chloride 1,000 ML IVC SCH (11:25)
[2017-10-30] MEDS: traMADol 50 MG TABLET PO PRN ×2 (11:26→23:38)
[2017-10-30] MEDS: Insulin LISPRO 300 UNITS/3 ML VIAL SQ SCH ×3 (11:27→20:18)
--- NOTE | 2017-10-30 11:39 | Infectious Disease Consult ---
Date of Encounter: 10/30/17 Time of Encounter: 11:33 Assessment and Plan (1) Leukocytosis Status: Acute Assessment and plan: Likely secondary to aspiration PNA. WBC elevated at 12.4 with neutrophilic predominance. No other SIRS criteria noted. Continue to trend. Qualifiers: Leukocytosis type: bandemia Qualified Code(s): D72.825 - Bandemia (2) Aspiration pneumonia Status: Acute Assessment and plan: Likely secondary to altered mental status. Location: Bilateral. Causative organism unclear. CT of the chest shows bilateral dependent consolidative airspace opacities with scattered nodular airspace opacities consistent with aspiration pneumonia and debris in the trachea. Continue Zosyn 3.375 grams IV Q8H. Dosed for CrCl ~37. Discontinue Vancomycin. Low index of suspicion for MRSA pneumonia. Duration of treatment depends on the clinical picture. Monitor renal function and dose-adjust antibiotics. Qualifiers: Aspiration pneumonia type: unspecified Laterality: bilateral Lung location: lower lobe of lung Qualified Code(s): J69.0 - Pneumonitis due to inhalation of food and vomit (3) Altered mental status Status: Acute Assessment and plan: Likely multifactorial: hypoxia + narcotic medications + infection. Improved after Narcan administration in the ER. CT head is negative for acute findings. Continue to monitor closely. Qualifiers: Altered mental status type: disorientation Qualified Code(s): R41.0 - Disorientation, unspecified (4) Falls frequently Status: Acute Assessment and plan: Likely multifactorial. Falls precautions. PT/OT to evaluate. (5) CKD (chronic kidney disease), stage III Status: Acute Assessment and plan: Serum creatinine stable at 2.05. Previously evaluated by nephrology. Continue to trend. Strict I's and O's. Avoid nephrotoxins. Dose-adjust antibiotics. (6) Diabetes mellitus Status: Chronic Assessment and plan: HgbA1C checked in January was 7.5%. Recommend aggressive glucose monitoring and control to promote wound healing and prevent infection. Management per the primary team. 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 Encinas. Clinically, the patient's knee does not appear infected. There is some mild postop swelling, but no marked erythema or drainage from the surgical incision. Check inflammatory markers, ESR and CRP. May need to consider imaging of the knee, but orthopedics has been consulted and will defer to them. Qualifiers: Laterality: left Qualified Code(s): Z96.652 - Presence of left artificial knee joint Infectious Disease HPI - Data of Consult Patient: new to practice Consult date: 10/30/17 Requesting Physician: Tala Villagomez CNP [facility] Provider[facility] - Consult Narrative Reason for consult: Possible PJI, aspiration PNA History of present illness: Mr. Severino is a 62 year old male with a past medical history of insulin- dependent diabetes, hypertension, see [place] stage III, and previously treated hepatitis C status post left total knee replacement October 16 at [facility]. The patient was admitted to the hospital November 09 for altered mental status and aspiration pneumonia. We are consulted October 30 for further recommendations regarding possible prosthetic joint infection and aspiration pneumonia. Briefly, the patient's a 62-year-old male with past medical history as stated above. The patient's mental status somewhat limits his ability to provide me with information, so most of the information is obtained from the medical records. Apparently, the patient presented to Psych[facility] with complaints of falling and left knee pain. Apparently, on the day prior to admission he fell at home on attempting to get up from the toilet after he lost his balance. He states his son called EMS and they helped him back up, but he refused transfer to the hospital at that time. He states later that night he spilled some water and was having increased left knee pain so he decided to come to the ER. Upon arrival to the ER, the patient was afebrile and hemodynamically stable. He did have a leukocytosis with neutrophilic predominance. Additional labs revealed serum creatinine elevation consistent with see [place] stage III. LFTs were negative. Urine drug screen was negative. Urinalysis was negative. He did have an elevated d-dimer and a CTA of the chest was negative for PE, but did show bilateral dependent consolidation airspace opacities with scattered nodular airspace opacities consistent with aspiration pneumonia as well as debridement in the trachea. Lactic acid was normal. Troponin is negative. ABGs revealed hypoxemia. CT of the head was negative. Blood cultures were obtained 2 sets and are currently pending. He was given 3 doses of Narcan which seemed to improve his mental status. He was also given IV Zosyn and IV vancomycin and transferred here for further evaluation. Since admission, the patient has remained afebrile and hemodynamically stable. His mental status somewhat precludes his ability to provide me with any information regarding the events leading up to his hospitalization. The patient is very drowsy and is somewhat somnolent and is very difficult to keep awake during my exam and interview. He states that he has not had any fevers or chills or rigors. He denies any headache or neck pain. He denies any congestion, earache, or sore throat. He denies any nausea or vomiting, but does report one episode of diarrhea couple days ago. He denies any abdominal pain. He states his appetite is okay. He states he fell secondary to losing his balance while attempting to get up off the commode. He denies any weakness or dizziness. He reports increased left knee pain since falling. He states Dr. Encinas did his surgery due to severe osteoarthritis of the left knee. He states he scheduled to see Dr. Encinas on November 04 in the office. He denies any other acute pain issues, does report chronic back pain that appears to be at baseline. He reports that he has a bruise to the right flank that is of unknown etiology. He denies any urinary complaints including frequency or dysuria. He denies any oral thrush or new skin lesions. According to the patient, he lives at home with his . He has 2 dogs in the house. He denies recent travel. He is off work on disability. He denies any tobacco, alcohol, or illicit drug use. CC: Tala Villagomez CNP Past Med Surg Social Fam HX - Past Medical History Attestation: Yes The following information was validated with the patient. Source: patient, old records reviewed, nursing notes reviewed Medical history: diabetes, hypertension, renal disease (CKD III), other (Hep C, previously treated) Psychiatric history: no psych history - Past Surgical History Surgical History: appendectomy, knee replacement (Left September 2017.), orthopedic , other - Social History Smoking Status: Former smoker Smokeless Tobacco Status: No Alcohol use: none Drug use: none Occupational status: disabled Current living situation: Home, With Family Activity Level: Independent ambulation Recent Out of Country Travel Within the Last 8 Weeks: No Exposure or Possible Exposure to Illness During Travel: No - Family History Father Adopted: No Living Status: Hx Family Cardiac Disorders: Yes (Patients father from an [place]. He states that it was his 7th [place].) Hx Family Respiratory Disorders: No Hx Family Cancer: No Hx Family GI Disorders: No Hx Family Endocrine Disorder: No Hx Family Neuromuscular Disorders: No Hx Family Neurologic Disorders: No Hx Family HEENT Disorders: No Hx Family Autoimmune Disorders: No Infectious Disease-CN:Meds Albuterol Sulfate [Albuterol Inhaler] 2 puff IH Q6HR PRN 06/19/15 [History] Atorvastatin [Lipitor] 10 mg PO HS 06/19/15 [History] Melatonin [Melatin] 3 mg PO HS 06/19/15 [History] Sertraline [Zoloft] 100 mg PO DAILY 06/19/15 [History] traZODone [TraZODone] 300 mg PO HS PRN 06/19/15 [History] Amlodipine [Norvasc] 5 mg PO DAILY 30 Days tablet 06/22/15 [Rx] Aspirin Enteric Coated [Aspirin EC] 325 mg PO DAILY #21 tablet. 02/19/17 [Rx] OxyCODONE Immed Rel [Roxicodone 5 MG] 5 - 10 mg PO Q6HR PRN #40 tablet 02/19/17 [Rx] Baclofen 20 mg PO TID 02/20/17 [History] Pregabalin [Lyrica] 150 mg PO BID 02/20/17 [History] 3 Allergy/AdvReac Type Severity Reaction Status Date / Time adhesive tape Allergy Hives Verified 02/20/17 14:17 All systems: reviewed and no additional remarkable complaints except as stated Exam - Constitutional Vitals: Temp Pulse Resp BP Pulse Ox 99.1 F 77 16 167/69 92 10/30/17 10:23 10/30/17 10:23 10/30/17 10:23 10/30/17 10:23 10/30/17 10:23 General appearance: cooperative, no acute distress, obese - Head Head exam: Present: atraumatic, normal inspection, normocephalic - Eye Eye exam: Present: EOMI, normal appearance, PERRL Pupils: Present: normal accommodation - ENT ENT exam: Present: mucous membranes moist Additional comments: Thick mucous secretions noted in the oral cavity. - Neck Neck exam: Present: normal inspection - Respiratory Respiratory exam: Present: rhonchi (Throughout). Absent: CTAB, rales, respiratory distress, wheezes - Cardiovascular Cardiovascular exam: Present: RRR, +S1, +S2 - GI/Abdominal GI/Abdominal exam: Present: distended (obese), normal bowel sounds, soft. Absent: tenderness - Extremities Exam Extremities exam: Present: joint swelling (Mild, left knee), pedal edema (Trace BLE), tenderness (LEft knee) Additional comments: Left knee with expected post-op edema. Surgical site with wound edges well- approximated and fernando intact. ROM not assessed. Pinpoint area of bloody drainage noted to the distal aspect of the surgical site. No erythema or warmth noted. - Back Exam Additional comments: Ecchymosis noted to the right flank. - Neurological Exam Neurological exam: Present: alert, oriented X3, no focal deficits - Psychiatric Psychiatric exam: Present: normal affect, normal mood - Skin Skin exam: Present: dry, intact, normal color, warm Infectious Disease CN: Results - Labs CBC & Chem 7: 10/30/17 12:00 Consult Discharge Plan - Plan Referrals: [facility],PC[facility] [Primary Care Provider] - - Attending Attestation I examined this patient and my medical decision-making was reviewed with the Resident Physician. I agree with the documented findings, disposition and treatment plan as described except to the extent set forth below. This is an addendum to original report dictated by Ira Kunz CNP, please refer to Jasmin curry for full detail. Patient is a 62-year-old gentleman with past medical history mentioned below including diabetes mellitus type 2, hyperlipidemia, chronic kidney disease stage III with history of hepatitis C that was treated in the past came in to with altered mental status. Most of the information was taken from medical records since the patient is not the best historian based on his mentation. Patient apparently had a total knee arthroplasty of the left knee at [facility] on October 16 of this year. Patient apparently had a fall the day prior to admission and the squad was called but the patient refused to come to the hospital. Patient continued to get more confused and apparently was brought into an outlying facility with the altered mental status and left knee pain. Patient was evaluated at the outside facility his MAXIMUM TEMPERATURE was 99.1, he did have blood cultures obtained with results pending and a urine was negative. Patient did have a d-dimer which was elevated at 2500. Patient was transferred here for further workup and evaluation. Since arrival patient has been afebrile, no labs have been obtained other than for CRP of 113 ESR 43 and a BUN of 36 creatinine of 2.03. WBC has not been obtained. A chest x-ray was done which was negative a CT head was done which was negative and a CT chest shows aspiration pneumonia. My NURSE PARALEGAL mentions that when she evaluated him he had gastric content in his mouth. Patient was started on broad-spectrum antibiotics we were consulted to evaluate the patients make further recommendations. Currently patient laying in bed appears comfortable with no acute disc distress. Assessment and plan fall Aspiration pneumonia - patient previously had to MRSA screens done in the last year both of which came back negative Recent history of total knee arthroplasty of the left Acute on chronic kidney disease Altered mental status likely secondary to high dose of pain medications At this point I believe the patient had aspiration pneumonia secondary to being on high-dose painkillers. Patient had MRSA screen the past that came back negative, repeat MRSA screen, if negative I recommend the seeing vancomycin and discontinuing Zosyn for now. Monitor kidney function closely and monitor for drug toxicity. We will stop vancomycin Duration of treatment likely 10-14 days Consider doing a swallow evaluation.
[2017-10-30] MEDS: Piperacillin/Tazobactam 3.375 GM in 0.9 % Sodium Chloride Mini Bag 100 ML IVPB SCH ×4 (11:54→23:39)
[2017-10-30 12:31] LABS: BUN/Creatinine Ratio 18 (6-26); Blood Urea Nitrogen 36 mg/dL (8-23); eGFR For African Americans 41 (> 60); eGFR For Non-African Americans 33 (> 60)
[2017-10-30] MEDS: Baclofen 10 MG TABLET PO SCH ×2 (16:47→21:37)
[2017-10-30] MEDS: *HR* OxyCODONE Immed Rel 5 MG TABLET PO PRN (16:58)
--- NOTE | 2017-10-30 18:53 | Orthopedic Consult Note ---
Date of Encounter: 10/30/17 Time of Encounter: 11:00 Assessment and Plan (1) Status post total knee replacement, left Current Visit: Yes Status: Acute Patient is 2 weeks s/p Left TKR, with expected post-operative swelling. At this time, I am not concerned for septic knee (2) Knee effusion, left Current Visit: Yes Status: Acute Patient has limited pain with mobility. He is able to ambulate without extreme pain. With reported falls, and recent surgery, noted effusion is to be expected. Aspiration of the knee is not recommended at this time. At this time, there is not a concern with prosthetic joint infection. Incision healing appropriately. Fernando in place, and will need to be removed soon. Patient requesting to follow up with [facility] for these to be removed. Recommending to monitor, and if knee pain begins to worsen, orthopedics will gladly re-evaluate. Nurse has reached out to office to discuss patient and arrange follow up. Incision was cleansed, new opsite applied while he is in the hospital. Abrasions to be cleansed and adaptic applied with kerlix dressing. Change these dressings daily. Start PT/OT for Left knee. DVT prophylaxis. Continue with pain control per hospitalist team. Orthopedics will sign off, thank you for the consult. History of Present Illness Chief complaint: AMS HPI: Mr. Severino is a 62 year old male, s/p Left TKR 10/16/[address] Ambrose at [facility] He presented to [facility] for AMS. Orthopedics consulted for concern of Left Septic Knee. Patient currently in no pain to Left knee, he is able to ambulate without difficulty. Admits to swelling and minimal tenderness with palpation along calf and lower legs. Denies N/T, radiation of pain. He does admit to 2 falls since his surgery and readmission to [facility]. He states he has yet to see orthopedic office, and has not started PT yet. He denies history of infection, drainage from incision or instability to knee. Since his admission, he is afebrile, vital stable. CRP 110, ESR mildly elevated - possibly related to recent surgery and aspiration pneumonia. Labs otherwise WNL. Left Knee: Incision - well healed, fernando in place. No erythema, drainage or purulence noted. No warmth, moderate effusion noted Minimal tenderness to medial and lateral joint lines and to anterior thigh. No instability. ROM - limited, painfree PROM. AROM limited to approx 50 degrees secondary to swelling. Strength: extension intact, flexion intact. NV intact. Skin: warm, dry Lesions noted to posterior knee - 2 large abrasions, superficial in nature. No erythema or odor present. No drainage. Tender to touch. Healing. Abrasion to lateral aspect of lower leg - no erythema, no drainage. Healing. Past Med Surg Social Fam HX - Past Medical History Medical history: diabetes, hypertension, renal disease (CKD III), other (Hep C, previously treated) Psychiatric history: no psych history - Past Surgical History Surgical History: appendectomy, knee replacement (Left September 2017.), orthopedic , other - Social History Smoking Status: Former smoker Smokeless Tobacco Status: No Alcohol use: none Drug use: none - Family History Father Adopted: No Living Status: Hx Family Cardiac Disorders: Yes (Patients father from an [place]. He states that it was his 7th [place].) Hx Family Respiratory Disorders: No Hx Family Cancer: No Hx Family GI Disorders: No Hx Family Endocrine Disorder: No Hx Family Neuromuscular Disorders: No Hx Family Neurologic Disorders: No Hx Family HEENT Disorders: No Hx Family Autoimmune Disorders: No Medications and Allergies Atorvastatin [Lipitor] 10 mg PO HS 06/19/15 [History] Melatonin [Melatin] 3 mg PO HS 06/19/15 [History] Sertraline [Zoloft] 150 mg PO DAILY 06/19/15 [History] Aspirin Enteric Coated [Aspirin EC] 325 mg PO DAILY #21 tablet. 02/19/17 [Rx] Baclofen 20 mg PO BID 02/20/17 [History] Pregabalin [Lyrica] 150 mg PO BID 02/20/17 [History] Acetaminophen [Tylenol] 650 mg PO Q6H PRN 10/30/17 [History] Amlodipine Besylate 10 mg PO DAILY 10/30/17 [History] Bisacodyl [Dulcolax] 10 mg PO BID PRN 10/30/17 [History] Buprenorphine [Butrans] 15 mcg TD QWEEK 10/30/17 [History] Cholecalciferol (D-3) [Vitamin D] 1,000 unit PO DAILY 10/30/17 [History] Cyanocobalamin (Vitamin B-12) [Vitamin B12] 1,000 mcg PO BID 10/30/17 [History] Diclofenac Sodium [Voltaren] 2 gm TP QID 10/30/17 [History] Insulin Glargine [Lantus] 20 unit SQ BID 10/30/17 [History] Lidocaine Patch [Lidoderm 5% patch] 1 each TP DAILY 10/30/17 [History] Lidocaine [Anecream] 1 appl RC Q4H PRN 10/30/17 [History] OxyCODONE Immed Rel [Roxicodone 5 MG] 5 mg PO BID PRN 10/30/17 [History] Tamsulosin [Flomax] 0.4 mg PO DAILY 10/30/17 [History] 3 Allergy/AdvReac Type Severity Reaction Status Date / Time adhesive tape Allergy Hives Verified 02/20/17 14:17 All Systems Reviewed: The remainder of the systems were reviewed and are negative - Constitutional Constitutional: as per HPI, frequent falls, no fever(s), no weakness, no weight gain - Cardiovascular Cardiovascular: no chest pain, no dyspnea, no syncope - Respiratory Respiratory: no cough - Musculoskeletal Musculoskeletal: as per HPI, abnormal gait, joint swelling, limited range of motion, stiffness, no muscle weakness, no numbness, no radiating pain into limb Physical Exam - Constitutional Vitals: Temp Pulse Resp BP Pulse Ox 97.8 F 80 16 162/68 95 10/30/17 16:44 10/30/17 16:44 10/30/17 16:44 10/30/17 16:44 10/30/17 16:44 General appearance IM: A&O X 3, no acute distress, answers questions appropriately - Knee left Appearance: effusion (SEE HPI) Results - Labs Result Diagrams: 11/01/17 03:49 11/01/17 03:49 Labs: Abnormal lab results ESR 43 mm/hr (0-10) H 10/30/17 12:00 BUN 36 mg/dL (8-23) H 10/30/17 12:00 Creatinine 2.03 mg/dL (0.70-1.30) H 10/30/17 12:00 Est GFR ( Amer) 41 (> 60) L 10/30/17 12:00 Est GFR (Non-Af Amer) 33 (> 60) L 10/30/17 12:00 POC Glucose 130 mg/dL (70-99) H 10/30/17 10:01 C-Reactive Protein 113 mg/L (Less than 10) H 10/30/17 12:00 All other labs normal. Consult Discharge Plan - Plan [facility]: [facility] [Primary Care Provider[facility] -
[2017-10-30] MEDS: Pregabalin 75 MG CAPSULE PO SCH (21:37)
[2017-10-30] MEDS: Melatonin 3 MG TABLET PO SCH (21:37)
[2017-10-31] MEDS: 0.9 % Sodium Chloride 1,000 ML IVC SCH (01:46)
[2017-10-31] MEDS: *HR* Enoxaparin 40 MG/0.4 ML SYRINGE SQ SCH (06:02)
[2017-10-31 06:06] LABS: Hematocrit 27.2 % (37.5-50.1); Hemoglobin 8.6 g/dL (12.9-16.9); Mean Corpuscular HGB Conc 31.6 g/dL (31.6-35.5); Mean Corpuscular Hemoglobin 29.5 pg (28.0-33.3); Mean Corpuscular Volume 93.2 fL (83.0-100.0); Mean Platelet Volume 11.8 fL (9.4-12.4); Platelet Count 239 K/mcL (140-400); Red Blood Count 2.92 M/mcL (4.19-5.50); Red Cell Distribution Width 14.8 % (11.5-14.5)
[2017-10-31 06:30] LABS: Albumin 2.9 g/dL (3.5-5.7); Calcium 7.8 mg/dL (8.6-10.3); Chol/HDL Ratio 2.8 (0-4.9); Globulin 2.8 g/dL (2.4-3.5); Magnesium 2.1 mg/dL (1.6-2.6); Potassium 3.4 mEq/L (3.5-5.1); Total Protein 5.7 g/dL (6.4-8.9)
[2017-10-31 06:41] LABS: Troponin I 0.04 ng/mL (< 0.04)
[2017-10-31] MEDS: Insulin LISPRO 300 UNITS/3 ML VIAL SQ SCH ×4 (08:35→21:05)
[2017-10-31] MEDS: Pregabalin 75 MG CAPSULE PO SCH ×2 (08:35→21:05)
[2017-10-31] MEDS: Baclofen 10 MG TABLET PO SCH ×3 (08:35→21:05)
[2017-10-31] MEDS: amLODIPine 5 MG TABLET PO SCH (08:35)
[2017-10-31] MEDS: Aspirin Enteric Coated 325 MG Tablet PO SCH (08:35)
[2017-10-31] MEDS: Piperacillin/Tazobactam 3.375 GM in 0.9 % Sodium Chloride Mini Bag 100 ML IVPB SCH ×2 (08:39→16:04)
[2017-10-31] MEDS: *HR* OxyCODONE Immed Rel 5 MG TABLET PO PRN ×2 (08:51→21:15)
--- NOTE | 2017-10-31 10:49 | Infectious Disease Progress No ---
Date of Encounter: 10/31/17 Time of Encounter: 10:46 - Assessment and Plan (1) Leukocytosis Current Visit: Yes Status: Acute Likely secondary to aspiration PNA. WBC up this morning to 15.4 No other SIRS criteria noted. Continue to trend. Qualifiers: Qualified Code(s): D72.825 - Bandemia (2) Aspiration pneumonia Current Visit: Yes Status: Acute Likely secondary to altered mental status. Location: Bilateral. Causative organism unclear. CT of the chest shows bilateral dependent consolidative airspace opacities with scattered nodular airspace opacities consistent with aspiration pneumonia and debris in the trachea. Continue Zosyn 3.375 grams IV Q8H. Dosed for CrCl ~37. Duration of treatment depends on the clinical picture. Monitor renal function and dose-adjust antibiotics. Qualifiers: Qualified Code(s): J69.0 - Pneumonitis due to inhalation of food and vomit (3) Altered mental status Current Visit: Yes Status: Acute Likely multifactorial: hypoxia + narcotic medications + infection. Improved after Narcan administration in the ER. CT head is negative for acute findings. Improved this morning. Continue to monitor closely. Qualifiers: Qualified Code(s): R41.0 - Disorientation, unspecified (4) Falls frequently Current Visit: Yes Status: Acute Likely multifactorial. Falls precautions. PT/OT to evaluate. (5) CKD (chronic kidney disease), stage III Current Visit: Yes Status: Acute Serum creatinine stable at 2.03. Previously evaluated by nephrology. Continue to trend. Strict I's and O's. Avoid nephrotoxins. Dose-adjust antibiotics. (6) Diabetes mellitus Current Visit: No Status: Chronic HgbA1C checked in January was 7.5%. Recommend aggressive glucose monitoring and control to promote wound healing and prevent infection. Management per the primary team. Qualifiers: Qualified Code(s): E11.9 - Type 2 diabetes mellitus without complications (7) Hypertension Current Visit: No Status: Chronic Qualifiers: Qualified Code(s): I10 - Essential (primary) hypertension (8) History of total knee arthroplasty Current Visit: Yes Status: Acute Status post left total knee arthroplasty 10/16/[address] Encinas. Clinically, the patient's knee does not appear infected. There is some mild postop swelling, but no marked erythema or drainage from the surgical incision. Inflammatory markers elevated, but could be secondary to recent surgery. Ortho consulted, low index of suspicion for infection given the appearance of the knee. Qualifiers: Qualified Code(s): Z96.652 - Presence of left artificial knee joint - Subjective Interval history: Patient seen and examined. No acute events noted overnight. Patient states that overall he feels okay today. Denies any fevers or chills or rigors. Denies any chest pain, shortness of breath, or cough. Denies any nausea, vomiting, diarrhea, constipation. States he had a bowel movement this morning. Denies any abdominal pain, urinary complaints, or appetite changes. Denies any oral thrush or new skin lesions. States he got bedside commode without any dyspnea or cough. No pain in his lower back and the left knee. Infect Dis PN-Objective Data - Labs CBC & Chem 7: 10/31/17 04:01 10/31/17 04:01 Labs: Laboratory Results - last 24 hr 10/30/17 10/30/17 10/30/17 10:01 12:00 12:00 WBC RBC Hgb Hct MCV MCH MCHC RDW Plt Count MPV ESR 43 H Sodium Potassium Chloride Carbon Dioxide BUN 36 H Creatinine 2.03 H Est GFR ( Amer) 41 L Est GFR (Non-Af Amer) 33 L BUN/Creatinine Ratio 18 Glucose POC Glucose 130 H Calculated Osmolality Calcium Magnesium Total Bilirubin AST ALT Alkaline Phosphatase Troponin I C-Reactive Protein B-Natriuretic Peptide Serum Total Protein Albumin Globulin Albumin/Globulin Ratio Triglycerides Cholesterol LDL Cholesterol, Calc VLDL Cholesterol, Calc HDL Cholesterol Cholesterol/HDL Ratio 10/30/17 10/30/17 10/30/17 12:00 16:46 19:30 WBC RBC Hgb Hct MCV MCH MCHC RDW Plt Count MPV ESR Sodium Potassium Chloride Carbon Dioxide BUN Creatinine Est GFR ( Amer) Est GFR (Non-Af Amer) BUN/Creatinine Ratio Glucose POC Glucose 253 H 162 H Calculated Osmolality Calcium Magnesium Total Bilirubin AST ALT Alkaline Phosphatase Troponin I C-Reactive Protein 113 H B-Natriuretic Peptide Serum Total Protein Albumin Globulin Albumin/Globulin Ratio Triglycerides Cholesterol LDL Cholesterol, Calc VLDL Cholesterol, Calc HDL Cholesterol Cholesterol/HDL Ratio 10/31/17 10/31/17 10/31/17 04:01 04:01 04:01 WBC 15.6 H RBC 2.92 L Hgb 8.6 L Hct 27.2 L MCV 93.2 MCH 29.5 MCHC 31.6 RDW 14.8 H Plt Count 239 MPV 11.8 ESR Sodium 138 Potassium 3.4 L Chloride 107 Carbon Dioxide 23 BUN 35 H Creatinine 2.07 H Est GFR ( Amer) 40 L Est GFR (Non-Af Amer) 33 L BUN/Creatinine Ratio 17 Glucose 304 H POC Glucose Calculated Osmolality 305 H Calcium 7.8 L Magnesium 2.1 Total Bilirubin 1.0 AST 84 H ALT 22 Alkaline Phosphatase 70 Troponin I 0.04 H* C-Reactive Protein B-Natriuretic Peptide 276 H Serum Total Protein 5.7 L Albumin 2.9 L Globulin 2.8 Albumin/Globulin Ratio 1.0 L Triglycerides 82 Cholesterol 101 LDL Cholesterol, Calc 49 VLDL Cholesterol, Calc 16 HDL Cholesterol 36 L Cholesterol/HDL Ratio 2.8 Exam - Constitutional Vitals: Temp Pulse Resp BP Pulse Ox 99.4 F 74 16 158/60 92 10/31/17 07:25 10/31/17 07:25 10/31/17 07:25 10/31/17 07:25 10/31/17 08:58 General appearance: cooperative, no acute distress, obese - Head Head exam: Present: atraumatic, normal inspection, normocephalic - Eye Eye exam: Present: EOMI, normal appearance, PERRL Pupils: Present: normal accommodation - ENT ENT exam: Present: mucous membranes moist - Neck Neck exam: Present: normal inspection - Respiratory Respiratory exam: Present: CTAB. Absent: rales, respiratory distress, rhonchi, wheezes - Cardiovascular Cardiovascular exam: Present: RRR, +S1, +S2 - GI/Abdominal GI/Abdominal exam: Present: distended (obese), normal bowel sounds, soft. Absent: tenderness - Extremities Exam Extremities exam: Present: joint swelling (Mild, left knee), pedal edema (1+ BLE ), tenderness (left knee) - Neurological Exam Neurological exam: Present: alert, oriented X3, no focal deficits - Psychiatric Psychiatric exam: Present: normal affect, normal mood - Skin Skin exam: Present: dry, intact, normal color, warm Consult Discharge Plan - Plan [facility]errals: [facility]Primary Care Provider[facility] - - Attending Attestation I examined this patient and my medical decision-making was reviewed with the Resident Physician. I agree with the documented findings, disposition and treatment plan as described except to the extent set forth below.
[2017-10-31] MEDS: traMADol 50 MG TABLET PO PRN (13:03)
[2017-10-31] MEDS: Furosemide 20 MG/2 ML VIAL IVP SCH ×2 (13:05→21:05)
--- NOTE | 2017-10-31 13:16 | Nephrology Consult Note ---
Date of Encounter: 10/31/17 Time of Encounter: 13:14 Assessment and Plan (1) CKD (chronic kidney disease), stage III Current Visit: Yes Status: Acute Review of past labs show a baseline of 30-37; labs limited and vary widely Today Scr 2.07 GFR 33 UOP 405ml; today 400ml out Agree with restarting Lasix Continue strict I/Os Avoid nephrotoxins if possible (2) Falls frequently Current Visit: Yes Status: Acute per primary team (3) History of total knee arthroplasty Current Visit: Yes Status: Acute per orthopedics team Qualifiers: Laterality: left Qualified Code(s): Z96.652 - Presence of left artificial knee joint History of Present Illness - Reason for Consult Consult date: 10/31/17 - Chief Complaint NANI on CKD stage 3, pneumonia - History of Present Illness Mr. Severino is a 62 year old male who follows with Dr Byrd for his CKD who has a PMH of hypertension, diabetes, obesity, depression and high cholesterol. Patient had a recent surgery to left knee October 16 has follow-up appointment with orthopedics surgeon on November 04. He was admitted with aspiration pneumonia and frequent fall. He states he did not take his Lasix for 2 days and now has some fluid overload. Patient insisted on seeing Dr Byrd for his kidney function. Past Med Surg Social Fam HX - Past Medical History Medical history: diabetes, hypertension, renal disease (CKD III), other (Hep C, previously treated) Psychiatric history: no psych history - Past Surgical History Surgical History: appendectomy, knee replacement (Left September 2017.), orthopedic , other - Social History Smoking Status: Former smoker Smokeless Tobacco Status: No Alcohol use: none Drug use: none - Family History Father Adopted: No Living Status: Hx Family Cardiac Disorders: Yes (Patients father from an [place]. He states that it was his 7th [place].) Hx Family Respiratory Disorders: No Hx Family Cancer: No Hx Family GI Disorders: No Hx Family Endocrine Disorder: No Hx Family Neuromuscular Disorders: No Hx Family Neurologic Disorders: No Hx Family HEENT Disorders: No Hx Family Autoimmune Disorders: No Medications and Allergies Atorvastatin [Lipitor] 10 mg PO HS 06/19/15 [History] Melatonin [Melatin] 3 mg PO HS 06/19/15 [History] Sertraline [Zoloft] 150 mg PO DAILY 06/19/15 [History] Aspirin Enteric Coated [Aspirin EC] 325 mg PO DAILY #21 tablet. 02/19/17 [Rx] Baclofen 20 mg PO BID 02/20/17 [History] Pregabalin [Lyrica] 150 mg PO BID 02/20/17 [History] Acetaminophen [Tylenol] 650 mg PO Q6H PRN 10/30/17 [History] Amlodipine Besylate 10 mg PO DAILY 10/30/17 [History] Bisacodyl [Dulcolax] 10 mg PO BID PRN 10/30/17 [History] Buprenorphine [Butrans] 15 mcg TD QWEEK 10/30/17 [History] Cholecalciferol (D-3) [Vitamin D] 1,000 unit PO DAILY 10/30/17 [History] Cyanocobalamin (Vitamin B-12) [Vitamin B12] 1,000 mcg PO BID 10/30/17 [History] Diclofenac Sodium [Voltaren] 2 gm TP QID 10/30/17 [History] Insulin Glargine [Lantus] 20 unit SQ BID 10/30/17 [History] Lidocaine Patch [Lidoderm 5% patch] 1 each TP DAILY 10/30/17 [History] Lidocaine [Anecream] 1 appl RC Q4H PRN 10/30/17 [History] OxyCODONE Immed Rel [Roxicodone 5 MG] 5 mg PO BID PRN 10/30/17 [History] Tamsulosin [Flomax] 0.4 mg PO DAILY 10/30/17 [History] 3 Allergy/AdvReac Type Severity Reaction Status Date / Time adhesive tape Allergy Hives Verified 02/20/17 14:17 Review of Systems All Systems: reviewed and no additional remarkable complaints except as stated Constitutional: frequent falls, weight gain Cardiovascular: edema, leg edema, no chest pain Neurological: behavioral changes Exam - Vital Signs Vital signs: Initial Vital Signs Temp Pulse Resp BP Pulse Ox 99.1 F 77 16 167/69 92 10/30/17 10:23 10/30/17 10:23 10/30/17 10:23 10/30/17 10:23 10/30/17 10:23 Vital Signs - Last 8 Hours Temp Pulse Resp BP Pulse Ox 10/31/17 11:33 99.6 F 79 16 162/70 90 04/10/18 08:58 92 10/31/17 07:25 99.4 F 74 16 158/60 93 Intake and Output 10/30/17 10/31/17 10/31/17 23:59 07:59 15:59 Intake Total 1740 / 1740 1600 / 1600 960 / 960 Output Total 405 / 405 400 / 400 Balance 1335 / 1335 1600 / 1600 560 / 560 Intake: IV Fluids 100 / 100 1100 / 1100 0.9 % Sodium Chloride 1,000 ML 1000 / 1000 @ 75 mls/hr IVC .[id number] JOSH Rx #:[id number] Zosyn 3.375 GM In 0.9 % Sodium 100 / 100 100 / 100 Chloride (Mini-Bag +) 100 ML @ 25 mls/hr IVPB Q8HR JOSH Rx#: [id number] Oral 640 / 640 500 / 500 960 / 960 Free Water 1000 / 1000 Output: Urine 405 / 405 400 / 400 Other: Meal Dinner water pitcher Breakfast Percent of Meal Consumed 100% 100% Stool Size Smear Large Stool Consistency soft formed Stool Color Brown Brown # Voids 1 # Urine Diapers 1 1 # Bowel Movements 1 Weight 146.4 kg Blood Glucose* 162 287 256 Patient Weight 10/31/17 23:59 Weight 146.4 kg - General Appearance General appearance: obese EENT: ATNC, mucous membranes moist, hearing intact, vision intact Neck: supple Respiratory: clear Cardiology: edema, normal S1, normal S2 Gastrointestinal: no tenderness, no guarding Integumentary: warm and dry Neurologic: alert and oriented x3 Psychiatric: mood/affect appropriate, cooperative Results - Lab Results 10/31/17 04:01 10/31/17 04:01 Most recent lab results Calcium 7.8 mg/dL (8.6-10.3) L 10/31/17 04:01 Magnesium 2.1 mg/dL (1.6-2.6) 10/31/17 04:01 Consult Discharge Plan - Plan [facility]errals: [facility] [Primary Care Provider[facility] -
--- NOTE | 2017-10-31 18:33 | Internal Med Progress Note ---
Date of Encounter: 10/31/17 Time of Encounter: 11:00 - Assessment and plan (1) Aspiration pneumonia Current Visit: Yes Status: Acute Assessment and plan: Patient was admitted from outlying hospital. X-ray was evidently concerning for aspiration pneumonia. Patient denies any new cough, fever or chills, back pain or chest pain. He has been evaluated by infectious disease. CT of the chest shows bilateral dependent consolidative airspace opacities scattered nodule airspace obesities consistent with aspiration pneumonia and. The trachea. We will continue Zosyn 3.375 g IV every 8 hours. Vancomycin was discontinued due to their low suspicion for MRSA pneumonia. Renally dose antibiotics. Oxygen as needed to maintain sats greater than 92%, nebulizer treatments Continue to monitor labs and vital signs. Qualifiers: Aspiration pneumonia type: unspecified Laterality: bilateral Lung location: lower lobe of lung Qualified Code(s): J69.0 - Pneumonitis due to inhalation of food and vomit (2) CKD (chronic kidney disease), stage III Current Visit: Yes Status: Acute Assessment and plan: Patient is being evaluated by nephrology. I appreciate the recommendations consultation. Serum creatinine 2.07, GFR 33, this appears to be near patient's baseline. Continue to avoid nephrotoxins Patient believes his peripheral edema is due to renal disease. Continue telemetry and continue to monitor labs and vital signs. (3) Falls frequently Current Visit: Yes Status: Acute Assessment and plan: Patient reports 2-3 falls immediately prior to admission. Patient with new narcotic use status post knee surgery on 10/16/17. Patient also with peripheral edema, aspiration pneumonia. Continue to monitor for safety him falls. PT/OT recommends SNF/ECF after discharge. (4) History of total knee arthroplasty Current Visit: Yes Status: Acute Assessment and plan: Left knee surgery by Dr. Encinas on 10/16/17. Orthopedics is consulted, they do not feel this time there is any need to worry about a septic joint. I appreciate their recommendations and consultations. Thank you. PT/OT recommend SNF/ECF after discharge for rehabilitation. Qualifiers: Laterality: left Qualified Code(s): Z96.652 - Presence of left artificial knee joint (5) Leukocytosis Current Visit: Yes Status: Acute Assessment and plan: Patient with mild leukocytosis, continued trend. Patient is getting Zosyn 3.375 g every 8 hours. Continue. No sirs or sepsis criteria are met. Patient is afebrile, no tachycardia, normotensive. Qualifiers: Leukocytosis type: bandemia Qualified Code(s): D72.825 - Bandemia (6) DVT prophylaxis Current Visit: Yes Status: Acute Assessment and plan: Lovenox subcutaneous. (7) Diabetes mellitus Current Visit: Yes Status: Chronic Assessment and plan: A1c ordered for morning. Continue sliding scale insulin, Accu-Cheks before meals and at bedtime, diabetic diet. Qualifiers: Diabetes mellitus type: type 2 Diabetes mellitus detention insulin use: unspecified long term care phlebotomist insulin use status Diabetes mellitus complication status : without complication Qualified Code(s): E11.9 - Type 2 diabetes mellitus without complications (8) Hypertension Current Visit: Yes Status: Chronic Assessment and plan: Chronic. Well controlled. Continue home medications. Qualifiers: Hypertension type: essential hypertension Qualified Code(s): I10 - Essential (primary) hypertension (9) Morbid obesity with BMI of 40.0-44.9, adult Current Visit: Yes Status: Chronic Assessment and plan: Chronic. Encourage lifestyle changes. (10) Peripheral edema Current Visit: Yes Status: Acute Assessment and plan: Patient reports that he has run out of Lasix a few days prior to admission. He states that he was out of refills was [facility]. Patient with +2 nonpitting edema to bilateral lower extremities as well as shortness of breath. Patient reports last time this happened that it was renal in nature. He denies any chest pain, states that he has never had any heart problems or congestive heart failure. BNP was mildly elevated at 276. Troponin was mildly elevated at 0.04. Echocardiogram is ordered for tomorrow. Lasix 20 mg IV push twice daily initiated today. Continue telemetry. - Time Spent With Patient Total time spent is greater than 50% in coordination of care (as documented) at patient's floor/unit and/or counseling patient: less than 15 minutes - Subjective Interval history: Patient was seen and assessed at bedside at 11 AM. He reports that he wants to see nephrology today, states that he is a patient of Dr. Maier. He reports that he ran out of his Lasix several days prior to admission, he had no refills left on the prescription. [facility]. Patient also reports that he had several falls at home prior to admission. Patient was insistent on seeing nephrology, they have been consulted. He denies any headache, blurred vision, nausea, vomiting, diarrhea. Denies any chest pain or shortness of breath. He does report increased +2 nonpitting pedal edema. - Constitutional Vitals: Temp Pulse Resp BP Pulse Ox 98.1 F 100 15 163/68 96 10/31/17 15:16 10/31/17 15:16 10/31/17 15:16 10/31/17 15:16 10/31/17 15:16 General appearance: Present: cooperative, A&O X 3, pleasant, no acute distress, answers questions appropriately - Head Head exam: Present: atraumatic, normal inspection, normocephalic - Eye Eye exam: Present: normal appearance, conjuntiva pink, sclera anicteric - Neck Neck exam general surgery: Present: supple, trachea midline. Absent: lymphadenopathy, tenderness - Respiratory Respiratory exam: Present: decreased breath sounds, CTAB. Absent: accessory muscle use, chest wall tenderness, rales, respiratory distress, rhonchi, wheezes - Cardiovascular Cardiovascular exam: Present: RRR, +S1, +S2. Absent: diastolic murmur, gallop, rubs, systolic murmur - GI/Abdominal GI/Abdominal exam: Present: normal bowel sounds, soft. Absent: distended, hepatomegaly, tenderness - Extremities Exam Extremities exam: Present: normal capillary refill, pedal edema, tenderness, warm, radial pulses palpable and symmetrical. Absent: calf tenderness, cyanotic , normal inspection - Neurological Exam Neurological exam: Present: alert, oriented X3, no focal deficits. Absent: facial droop, speech deficit - Skin Skin exam: Present: dry, intact, normal color, warm. Absent: rash Internal Medicine: Result - Labs CBC & Chem 7: 10/31/17 04:01 10/31/17 04:01 Labs: Short CBC 10/31/17 Range/Units 04:01 WBC 15.6 H (4.3-11.1) K/mcL Hgb 8.6 L (12.9-16.9) g/dL Hct 27.2 L (37.5-50.1) % Plt Count 239 (140-400) K/mcL BMP 10/31/17 04:01 Sodium 138 Potassium 3.4 L Chloride 107 Carbon Dioxide 23 BUN 35 H Creatinine 2.07 H Glucose 304 H Calcium 7.8 L Cardiac Enzymes 10/31/17 Range/Units 04:01 Troponin I 0.04 H* (< 0.04) ng/mL Liver Function 10/31/17 Range/Units 04:01 Total Bilirubin 1.0 (0.3-1.0) mg/dL AST 84 H (13-39) Units/L ALT 22 (7-52) Units/L Alkaline Phosphatase 70 (34-104) Units/L Albumin 2.9 L (3.5-5.7) g/dL Consult Discharge Plan - Plan [facility]errals: [facility] [Primary Care Provider] -
[2017-10-31] MEDS: Melatonin 3 MG TABLET PO SCH (21:05)
[2017-11-01] MEDS: Piperacillin/Tazobactam 3.375 GM in 0.9 % Sodium Chloride Mini Bag 100 ML IVPB SCH ×2 (00:44→08:20)
[2017-11-01] MEDS: *HR* Enoxaparin 40 MG/0.4 ML SYRINGE SQ SCH (05:45)
[2017-11-01 05:54] LABS: Basophils % 0.4 %; Eosinophils # 0.3 K/mcL (0.0-0.6); Eosinophils % 2.9 %; Hematocrit 27.6 % (37.5-50.1); Hemoglobin 8.8 g/dL (12.9-16.9); Immature Granulocytes % 0.5 % (0-4); Lymphocytes # 1.3 K/mcL (0.6-4.6); Lymphocytes % 13.6 %; Mean Corpuscular HGB Conc 31.9 g/dL (31.6-35.5); Mean Corpuscular Volume 94.2 fL (83.0-100.0); Mean Platelet Volume 12.1 fL (9.4-12.4); Monocytes # 0.6 K/mcL (0.0-1.3); Monocytes % 6.5 %; Neutrophils # 7.5 K/mcL (1.6-8.9); Platelet Count 235 K/mcL (140-400); Red Blood Count 2.93 M/mcL (4.19-5.50); Red Cell Distribution Width 14.7 % (11.5-14.5); Segmented Neutrophils % 76.1 %
[2017-11-01 07:04] LABS: Calcium 8.1 mg/dL (8.6-10.3); Potassium 3.5 mEq/L (3.5-5.1)
[2017-11-01 08:18] LABS: Estimated Average Glucose 171 mg/dl; Hemoglobin A1C 7.6 %
[2017-11-01] MEDS: Insulin LISPRO 300 UNITS/3 ML VIAL SQ SCH ×4 (08:21→22:27)
[2017-11-01] MEDS: Aspirin Enteric Coated 325 MG Tablet PO SCH (08:23)
[2017-11-01] MEDS: Furosemide 20 MG/2 ML VIAL IVP SCH ×2 (08:23→22:27)
[2017-11-01] MEDS: Baclofen 10 MG TABLET PO SCH ×3 (08:23→22:27)
[2017-11-01] MEDS: *HR* OxyCODONE Immed Rel 5 MG TABLET PO PRN ×2 (08:23→15:42)
[2017-11-01] MEDS: Acetaminophen 325 MG TABLET PO PRN (08:23)
[2017-11-01] MEDS: amLODIPine 5 MG TABLET PO SCH (08:24)
[2017-11-01] MEDS: Pregabalin 75 MG CAPSULE PO SCH ×2 (08:24→22:27)
--- NOTE | 2017-11-01 11:13 | Infectious Disease Progress No ---
Date of Encounter: 11/01/17 Time of Encounter: 11:11 - Assessment and Plan (1) Leukocytosis Current Visit: Yes Status: Resolved Likely secondary to aspiration PNA. WBC normalized. No other SIRS criteria noted. Continue to trend. Qualifiers: Leukocytosis type: bandemia Qualified Code(s): D72.825 - Bandemia (2) Aspiration pneumonia Current Visit: Yes Status: Acute Likely secondary to altered mental status. Location: Bilateral. Causative organism unclear. CT of the chest shows bilateral dependent consolidative airspace opacities with scattered nodular airspace opacities consistent with aspiration pneumonia and debris in the trachea. Continue Zosyn 3.375 grams IV Q8H. Dosed for CrCl ~37. Duration of treatment depends on the clinical picture, but likely a total of days. Can switch to PO Augmentin when ready for discharge 875mg PO BID. Monitor renal function and dose-adjust antibiotics. No further recommendations from the ID team. Will sign off. Please re-consult PRN. Qualifiers: Aspiration pneumonia type: unspecified Laterality: bilateral Lung location: lower lobe of lung Qualified Code(s): J69.0 - Pneumonitis due to inhalation of food and vomit (3) Altered mental status Current Visit: Yes Status: Acute Likely multifactorial: hypoxia + narcotic medications + infection. Improved after Narcan administration in the ER. CT head is negative for acute findings. Improved this morning. Appears back to baseline. Continue to monitor closely. Qualifiers: Altered mental status type: disorientation Qualified Code(s): R41.0 - Disorientation, unspecified (4) Falls frequently Current Visit: Yes Status: Acute Likely multifactorial. Falls precautions. PT/OT evaluation noted. Pending acceptance at [facility]. (5) CKD (chronic kidney disease), stage III Current Visit: Yes Status: Acute Serum creatinine stable. Previously evaluated by nephrology. Nephrology consulted and following. Continue to trend. Strict I's and O's. Avoid nephrotoxins. Dose-adjust antibiotics. (6) Diabetes mellitus Current Visit: Yes Status: Chronic HgbA1C checked in January was 7.5%. Recommend aggressive glucose monitoring and control to promote wound healing and prevent infection. Management per the primary team. 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 Encinas. Clinically, the patient's knee does not appear infected. There is some mild postop swelling, but no marked erythema or drainage from the surgical incision. Inflammatory markers elevated, but could be secondary to recent surgery. Ortho consulted, low index of suspicion for infection given the appearance of the knee. Qualifiers: Laterality: left Qualified Code(s): Z96.652 - Presence of left artificial knee joint - Subjective Interval history: Patient seen and examined. No acute events noted overnight. Patient states that overall he feels okay today. Denies any fevers or chills or rigors. Denies any chest pain, shortness of breath, or cough. Denies any nausea, vomiting, diarrhea, constipation. States he had a bowel movement yesterday, but his abdomen is still distended. Denies any abdominal pain, urinary complaints, or appetite changes. Denies any oral thrush or new skin lesions. Complains of pain in the left knee. Infect Dis PN-Objective Data - Labs CBC & Chem 7: 11/01/17 03:49 11/01/17 03:49 Labs: Laboratory Results - last 24 hr 10/31/17 10/31/17 10/31/17 07:24 11:36 12:35 WBC RBC Hgb Hct MCV MCH MCHC RDW Plt Count MPV Immature Gran % Seg Neutrophils % Lymphocytes % Monocytes % Eosinophils % Basophils % Neutrophils # Lymphocytes # Monocytes # Eosinophils # Basophils # Sodium Potassium Chloride Carbon Dioxide BUN Creatinine Est GFR ( Amer) Est GFR (Non-Af Amer) BUN/Creatinine Ratio Glucose POC Glucose 287 H 256 H Est Mean Plasma Glucose Hemoglobin A1c Calculated Osmolality Calcium Troponin I Nasal Screen MRSA (PCR) Negative 10/31/17 10/31/17 11/01/17 15:30 20:14 03:49 WBC 9.8 RBC 2.93 L Hgb 8.8 L Hct 27.6 L MCV 94.2 MCH 30.0 MCHC 31.9 RDW 14.7 H Plt Count 235 MPV 12.1 Immature Gran % 0.5 Seg Neutrophils % 76.1 Lymphocytes % 13.6 Monocytes % 6.5 Eosinophils % 2.9 Basophils % 0.4 Neutrophils # 7.5 Lymphocytes # 1.3 Monocytes # 0.6 Eosinophils # 0.3 Basophils # 0.0 Sodium Potassium Chloride Carbon Dioxide BUN Creatinine Est GFR ( Amer) Est GFR (Non-Af Amer) BUN/Creatinine Ratio Glucose POC Glucose 336 H 229 H Est Mean Plasma Glucose Hemoglobin A1c Calculated Osmolality Calcium Troponin I Nasal Screen MRSA (PCR) 11/01/17 11/01/17 11/01/17 03:49 03:49 08:39 WBC RBC Hgb Hct MCV MCH MCHC RDW Plt Count MPV Immature Gran % Seg Neutrophils % Lymphocytes % Monocytes % Eosinophils % Basophils % Neutrophils # Lymphocytes # Monocytes # Eosinophils # Basophils # Sodium 140 Potassium 3.5 Chloride 105 Carbon Dioxide 27 BUN 31 H Creatinine 2.25 H Est GFR ( Amer) 36 L Est GFR (Non-Af Amer) 30 L BUN/Creatinine Ratio 14 Glucose 297 H POC Glucose Est Mean Plasma Glucose 171 Hemoglobin A1c 7.6 H Calculated Osmolality 308 H Calcium 8.1 L Troponin I < 0.03 Nasal Screen MRSA (PCR) Cultures: Cultures 10/30/17 12:00 Blood Culture - Preliminary Peripheral Venipuncture No growth. 10/30/17 12:00 Blood Culture - Preliminary Peripheral Venipuncture No growth. Serology 10/31/17 Range/Units 12:35 Nasal Screen MRSA (PCR) Negative (Negative) - Impressions Impressions Echocardiogram 10/31/17 12:13 Impressions: LVEF 60%. Mild left ventricular diastolic dysfunction. RV is dilated. Function is normal. Mild mitral regurgitation. No pulmonary hypertension. Left Ventricular Wall Motion: Rest Echo Findings The mid inferior lateral and basal inferior lateral farah were not visualized. All other wall segments showed normal motion. Findings: Study Quality * Technically sub-optimal due to body habitus. ECG Findings * Normal sinus rhythm. Left Ventricle * LVEF 60%. * Mild left ventricular diastolic dysfunction. * Normal LV size. * Probably normal LV wall thickness - measurements not well obtained in the PLAX view. Right Ventricle * RV is dilated. Function is normal. Left Atrium * Moderately dilated left atrium. Right Atrium * Normal right atrial size. Aortic Valve * No aortic regurgitation. * Aortic valve not well visualized. * No aortic stenosis. Mitral Valve * Normal mitral valve structure. * No mitral stenosis. * Mild mitral regurgitation. Tricuspid Valve * Tricuspid valve not well visualized. * Trace tricuspid regurgitation. * No pulmonary hypertension. * Estimated RA pressure is 3 mmHg. * Estimated RVSP is 18 mmHg. Pulmonic Valve * Pulmonic valve is not well visualized. * No pulmonic stenosis. * No pulmonic regurgitation. Pulmonary Artery * Pulmonary artery not well visualized. Aorta * Ascending aorta not well visualized. Pericardium * There is no pericardial effusion present. Interatrial Septum * No evidence of PFO by color Doppler. IVC * Normal IVC dimensions and inspiratory collapse. Exam - Constitutional Vitals: Temp Pulse Resp BP Pulse Ox 98.2 F 74 16 164/78 92 11/01/17 10:46 11/01/17 10:46 11/01/17 10:46 11/01/17 10:46 11/01/17 10:46 General appearance: cooperative, no acute distress, obese - Head Head exam: Present: atraumatic, normal inspection, normocephalic - Eye Eye exam: Present: EOMI, normal appearance, PERRL Pupils: Present: normal accommodation - ENT ENT exam: Present: mucous membranes moist - Neck Neck exam: Present: normal inspection - Respiratory Respiratory exam: Present: decreased breath sounds ( Bilateral bases), CTAB. Absent: rales, respiratory distress, rhonchi, wheezes - Cardiovascular Cardiovascular exam: Present: RRR, +S1, +S2 - GI/Abdominal GI/Abdominal exam: Present: distended (obese), normal bowel sounds, soft. Absent: tenderness - Extremities Exam Extremities exam: Present: joint swelling (Mild left knee), normal inspection, pedal edema (1+ BLE), tenderness (left knee) - Neurological Exam Neurological exam: Present: alert, oriented X3, no focal deficits - Psychiatric Psychiatric exam: Present: normal affect, normal mood - Skin Skin exam: Present: dry, intact, normal color, warm Consult Discharge Plan - Plan [facility]errals: [facility] [Primary Care Provider] -
--- NOTE | 2017-11-01 12:54 | Nephrology Progress Note ---
Date of Encounter: 11/01/17 Time of Encounter: 12:53 - Assessment and Plan (1) CKD (chronic kidney disease), stage III Current Visit: Yes Status: Acute Continue diuretic. Renal function overall stable. Avoid nephrotoxins. Subjective Principal diagnosis: CKD Interval history: The patient was seen he has no new complaints. He still feels swollen. Objective - Vital Signs Vital signs: Vital Signs Temp Pulse Resp BP Pulse Ox 11/01/17 10:46 98.2 F 74 16 164/78 92 11/01/17 07:11 98.1 F 65 16 153/73 90 11/01/17 04:02 98.2 F 68 16 173/76 94 10/31/17 23:58 98.2 F 68 16 156/73 93 10/31/17 19:22 98.2 F 76 16 164/71 93 10/31/17 15:16 98.1 F 100 15 163/68 96 Intake and Output 10/31/17 11/01/17 11/01/17 23:59 07:59 15:59 Intake Total 100 / 100 580 / 580 800 / 800 Output Total 1150 / 1150 600 / 600 Balance 100 / 100 -570 / -570 200 / 200 Intake: IV Fluids 100 / 100 100 / 100 Zosyn 3.375 GM In 0.9 % Sodium 100 / 100 100 / 100 Chloride (Mini-Bag +) 100 ML @ 25 mls/hr IVPB Q8HR [facility] Rx#: [id number] Oral 480 / 480 800 / 800 Output: Urine 1150 / 1150 600 / 600 Other: Meal Nourishment/Supplement Percent of Meal Consumed 100% # Urine Diapers 1 Weight 145.3 kg Blood Glucose* 229 249 307 Patient Weight 11/01/17 23:59 Weight 145.3 kg - General Appearance General appearance: Present: well-developed, well-nourished, obese EENT: Present: ATNC Cardiology: Present: edema - Lab 11/01/17 03:49 11/01/17 03:49 Most recent lab results Calcium 8.1 mg/dL (8.6-10.3) L 11/01/17 03:49 Magnesium 2.1 mg/dL (1.6-2.6) 10/31/17 04:01 Consult Discharge Plan - Plan [facility]errals: [facility] [Primary Care Provider] -
--- NOTE | 2017-11-01 13:47 | Internal Med Progress Note ---
Date of Encounter: 11/01/17 Time of Encounter: 12:40 - Assessment and plan (1) Aspiration pneumonia Current Visit: Yes Status: Acute Assessment and plan: IV antibiotic has been stopped, will start pt on Augmentin 875mg po BID x 7 days. Vancomycin was discontinued due to their low suspicion for MRSA pneumonia. Oxygen as needed to maintain sats greater than 92%, nebulizer treatments Continue to monitor labs and vital signs. Qualifiers: Aspiration pneumonia type: unspecified Laterality: bilateral Lung location: lower lobe of lung Qualified Code(s): J69.0 - Pneumonitis due to inhalation of food and vomit (2) CKD (chronic kidney disease), stage III Current Visit: Yes Status: Acute Assessment and plan: Patient is being evaluated by nephrology. I appreciate the recommendations consultation. They agree with current treatment. Serum creatinine 2.25, GFR 30, this appears to be near patient's baseline. Continue to avoid nephrotoxins Patient continues to believe that his peripheral edema is due to renal disease. Continue telemetry and continue to monitor labs and vital signs. (3) Falls frequently Current Visit: Yes Status: Acute Assessment and plan: Patient reports 2-3 falls at home immediately prior to admission. Patient with new narcotic use status post knee surgery on 10/16/17. Patient also with peripheral edema, aspiration pneumonia that could be contributing to falls. Continue to monitor for safety him falls. PT/OT recommends SNF/ECF after discharge. SW on board and pt going to [place] rehab at discharge. (4) History of total knee arthroplasty Current Visit: Yes Status: Acute Assessment and plan: Left knee surgery by Dr. Encinas on 10/16/17. Orthopedics is consulted, do not feel that septic joint is a problem at this point. PT/OT recommend SNF/ECF after discharge for rehabilitation, plan as above. Site without redness, bleeding, drainage. Pt moves joint without difficulty. Qualifiers: Laterality: left Qualified Code(s): Z96.652 - Presence of left artificial knee joint (5) Leukocytosis Current Visit: Yes Status: Resolved Assessment and plan: Resolved. No sirs or sepsis criteria are met. Patient is afebrile, no tachycardia, normotensive. Qualifiers: Leukocytosis type: bandemia Qualified Code(s): D72.825 - Bandemia (6) DVT prophylaxis Current Visit: Yes Status: Acute Assessment and plan: Lovenox SQ daily (7) Diabetes mellitus Current Visit: Yes Status: Chronic Assessment and plan: A1c 7.6, diabetes poorly controlled. Continue sliding scale insulin, Accu-Cheks before meals and at bedtime, diabetic diet with 1.5 liter fluid restriction. Qualifiers: Diabetes mellitus type: type 2 Diabetes mellitus terminal operator insulin use: unspecified skilled nursing insulin use status Diabetes mellitus complication status : without complication Qualified Code(s): E11.9 - Type 2 diabetes mellitus without complications (8) Hypertension Current Visit: Yes Status: Chronic Assessment and plan: Chronic. Continue home medications. Continue to monitor vital signs per admission order. Qualifiers: Hypertension type: essential hypertension Qualified Code(s): I10 - Essential (primary) hypertension (9) Morbid obesity with BMI of 40.0-44.9, adult Current Visit: Yes Status: Chronic Assessment and plan: Chronic. Encourage lifestyle modifications. (10) Peripheral edema Current Visit: Yes Status: Acute Assessment and plan: Patient with +2 nonpitting edema to bilateral lower extremities as well as shortness of breath. BNP was mildly elevated at 276. Troponin was mildly elevated at 0.04, has returned to baseline. Lasix 20 mg IV push twice daily initiated today. Continue telemetry. (11) Diastolic CHF Current Visit: Yes Status: Acute Assessment and plan: Patient denies any prior knowledge of congestive heart failure. States that he takes Lasix for peripheral edema, but has no official diagnosis of CHF. Patient reports that he ran out of Lasix 2 days prior to admission was unable to obtain [facility]. Echocardiogram shows LVEF of 60%, mild LV DD, dilated RV with normal function, mild MR. Patient appears to be diuresing well with negative fluid deficit and approximately 1 kg weight loss. Continue to monitor Continue Lasix 20 mg IV twice daily Continue telemetry Continue daily weights, strict I and O, 1.5 L fluid restriction. Qualifiers: Heart failure chronicity: acute Qualified Code(s): I50.31 - Acute diastolic (congestive) heart failure - Time Spent With Patient Total time spent is greater than 50% in coordination of care (as documented) at patient's floor/unit and/or counseling patient: less than 15 minutes - Subjective Interval history: Patient was seen and assessed at bedside at 1240 PM. He denies any headache, blurred vision, nausea, vomiting, diarrhea. Denies any chest pain or shortness of breath. He does have increased +2 pitting pedal edema bilaterally. He states that he is feeling better and [facility]. - Constitutional Vitals: Temp Pulse Resp BP Pulse Ox 98.2 F 74 16 164/78 92 11/01/17 10:46 11/01/17 10:46 11/01/17 10:46 11/01/17 10:46 11/01/17 10:46 General appearance: Present: cooperative, A&O X 3, pleasant, no acute distress, answers questions appropriately - Head Head exam: Present: atraumatic, normal inspection, normocephalic - Eye Eye exam: Present: normal appearance, conjuntiva pink, sclera anicteric - Neck Neck exam general surgery: Present: supple, trachea midline. Absent: lymphadenopathy, tenderness - Respiratory Respiratory exam: Present: CTAB. Absent: accessory muscle use, chest wall tenderness, rales, respiratory distress, rhonchi, wheezes - Cardiovascular Cardiovascular exam: Present: RRR, +S1, +S2. Absent: diastolic murmur, gallop, rubs, systolic murmur - GI/Abdominal GI/Abdominal exam: Present: distended, normal bowel sounds, soft. Absent: hepatomegaly, tenderness - Extremities Exam Extremities exam: Present: normal capillary refill, pedal edema, tenderness, warm, radial pulses palpable and symmetrical. Absent: calf tenderness, cyanotic - Expanded Lower Extremities Exam Foot/Toe exam: Present: swelling, tenderness - Neurological Exam Neurological exam: Present: alert, oriented X3, no focal deficits. Absent: facial droop, speech deficit - Skin Skin exam: Present: dry, intact, normal color, warm. Absent: rash Internal Medicine: Result - Labs CBC & Chem 7: 11/01/17 03:49 11/01/17 03:49 Labs: Short CBC 11/01/17 Range/Units 03:49 WBC 9.8 (4.3-11.1) K/mcL Hgb 8.8 L (12.9-16.9) g/dL Hct 27.6 L (37.5-50.1) % Plt Count 235 (140-400) K/mcL Neutrophils # 7.5 (1.6-8.9) K/mcL BMP 11/01/17 03:49 Sodium 140 Potassium 3.5 Chloride 105 Carbon Dioxide 27 BUN 31 H Creatinine 2.25 H Glucose 297 H Calcium 8.1 L Cardiac Enzymes 11/01/17 Range/Units 08:39 Troponin I < 0.03 (< 0.04) ng/mL - Impressions Impressions Echocardiogram 10/31/17 12:13 Impressions: LVEF 60%. Mild left ventricular diastolic dysfunction. RV is dilated. Function is normal. Mild mitral regurgitation. No pulmonary hypertension. Left Ventricular Wall Motion: Rest Echo Findings The mid inferior lateral and basal inferior lateral farah were not visualized. All other wall segments showed normal motion. Findings: Study Quality * Technically sub-optimal due to body habitus. ECG Findings * Normal sinus rhythm. Left Ventricle * LVEF 60%. * Mild left ventricular diastolic dysfunction. * Normal LV size. * Probably normal LV wall thickness - measurements not well obtained in the PLAX view. Right Ventricle * RV is dilated. Function is normal. Left Atrium * Moderately dilated left atrium. Right Atrium * Normal right atrial size. Aortic Valve * No aortic regurgitation. * Aortic valve not well visualized. * No aortic stenosis. Mitral Valve * Normal mitral valve structure. * No mitral stenosis. * Mild mitral regurgitation. Tricuspid Valve * Tricuspid valve not well visualized. * Trace tricuspid regurgitation. * No pulmonary hypertension. * Estimated RA pressure is 3 mmHg. * Estimated RVSP is 18 mmHg. Pulmonic Valve * Pulmonic valve is not well visualized. * No pulmonic stenosis. * No pulmonic regurgitation. Pulmonary Artery * Pulmonary artery not well visualized. Aorta * Ascending aorta not well visualized. Pericardium * There is no pericardial effusion present. Interatrial Septum * No evidence of PFO by color Doppler. IVC * Normal IVC dimensions and inspiratory collapse. Consult Discharge Plan - Plan [facility]errals: [facility] [Primary Care Provider] -
[2017-11-01] MEDS: Melatonin 3 MG TABLET PO SCH (22:27)
[2017-11-02] MEDS: *HR* Enoxaparin 40 MG/0.4 ML SYRINGE SQ SCH (05:22)
[2017-11-02] MEDS: *HR* OxyCODONE Immed Rel 5 MG TABLET PO PRN ×2 (05:32→11:42)
[2017-11-02 07:17] LABS: Basophils % 0.5 %; Eosinophils # 0.4 K/mcL (0.0-0.6); Eosinophils % 4.6 %; Hemoglobin 9.3 g/dL (12.9-16.9); Immature Granulocytes % 0.4 % (0-4); Lymphocytes # 1.2 K/mcL (0.6-4.6); Lymphocytes % 14.4 %; Mean Corpuscular HGB Conc 32.1 g/dL (31.6-35.5); Mean Corpuscular Volume 93.5 fL (83.0-100.0); Mean Platelet Volume 11.8 fL (9.4-12.4); Monocytes # 0.6 K/mcL (0.0-1.3); Monocytes % 6.7 %; Neutrophils # 6.1 K/mcL (1.6-8.9); Nucleated Red Blood Cells 0.2 /100 WBC (0); Platelet Count 241 K/mcL (140-400); Red Cell Distribution Width 14.5 % (11.5-14.5); Segmented Neutrophils % 73.4 %
[2017-11-02 07:28] LABS: Calcium 8.4 mg/dL (8.6-10.3); Potassium 3.7 mEq/L (3.5-5.1)
[2017-11-02] MEDS: Aspirin Enteric Coated 325 MG Tablet PO SCH (07:59)
[2017-11-02] MEDS: amLODIPine 5 MG TABLET PO SCH (07:59)
[2017-11-02] MEDS: Baclofen 10 MG TABLET PO SCH ×3 (07:59→21:43)
[2017-11-02] MEDS: Pregabalin 75 MG CAPSULE PO SCH ×2 (08:00→21:43)
[2017-11-02] MEDS: Insulin LISPRO 300 UNITS/3 ML VIAL SQ SCH ×6 (08:00→21:43)
[2017-11-02] MEDS: Furosemide 20 MG/2 ML VIAL IVP SCH ×2 (08:00→21:43)
[2017-11-02] MEDS: Acetaminophen 325 MG TABLET PO PRN (09:16)
[2017-11-02] MEDS: traMADol 50 MG TABLET PO PRN (09:17)
--- NOTE | 2017-11-02 17:26 | Internal Med Progress Note ---
Date of Encounter: 11/02/17 Time of Encounter: 12:00 - Assessment and plan (1) Aspiration pneumonia Current Visit: Yes Status: Acute Assessment and plan: Continue Augmentin 875mg po BID x 7 days. Oxygen as needed to maintain sats greater than 92% Continue nebulizer treatments Continue to monitor labs and vital signs. Patient denies cough, chills, fever. Patient has no leukocytosis, no tachycardia patient is normotensive. Qualifiers: Aspiration pneumonia type: unspecified Laterality: bilateral Lung location: lower lobe of lung Qualified Code(s): J69.0 - Pneumonitis due to inhalation of food and vomit (2) CKD (chronic kidney disease), stage III Current Visit: Yes Status: Acute Assessment and plan: Nephrology following. I appreciate the recommendations consultation. They agree with current treatment. Serum creatinine 2.01, GFR 34, this appears to be near patient's baseline. Continue to avoid nephrotoxins Continue telemetry and continue to monitor labs and vital signs. (3) Falls frequently Current Visit: Yes Status: Acute Assessment and plan: Continue to monitor for falls and for safety. Pt to go to [place] for inpt PT/OT (4) History of total knee arthroplasty Current Visit: Yes Status: Acute Assessment and plan: PT/OT recommend SNF/ECF after discharge for rehabilitation, plan as above. Site without redness, bleeding, drainage. Pt moves joint without difficulty. Transparent dressing dry and intact. Qualifiers: Laterality: left Qualified Code(s): Z96.652 - Presence of left artificial knee joint (5) Leukocytosis Current Visit: Yes Status: Resolved Assessment and plan: Resolved. Qualifiers: Leukocytosis type: bandemia Qualified Code(s): D72.825 - Bandemia (6) DVT prophylaxis Current Visit: Yes Status: Acute Assessment and plan: Lovenox SQ daily, encourage ambulation. (7) Diabetes mellitus Current Visit: Yes Status: Chronic Assessment and plan: A1c 7.6, diabetes poorly controlled. Continue sliding scale insulin, Accu-Cheks before meals and at bedtime, diabetic diet with 1.5 liter fluid restriction. Patient could benefit from diabetes education. 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 Continue home medications. Continue to monitor vital signs per admission order. Well-controlled. Qualifiers: Hypertension type: essential hypertension Qualified Code(s): I10 - Essential (primary) hypertension (9) Morbid obesity with BMI of 40.0-44.9, adult Current Visit: Yes Status: Chronic Assessment and plan: Encourage lifestyle modifications including exercise and diet. (10) Peripheral edema Current Visit: Yes Status: Acute Assessment and plan: Patient with +1-+2 nonpitting edema to bilateral lower extremities as well as shortness of breath. Improving. Lungs are clear and diminished throughout without wheezing, rales, rhonchi. BNP was mildly elevated at 276. Troponin was mildly elevated at 0.04, has returned to baseline. \ Lasix 20 mg IV push BID Continue telemetry. (11) Diastolic CHF Current Visit: Yes Status: Acute Assessment and plan: Echocardiogram shows LVEF of 60%, mild LV DD, dilated RV with normal function, mild MR. Patient appears to be diuresing well with negative fluid deficit and approximately 1 kg weight loss. Continue to monitor. Patient appears to have diuresed approximately 2 L yesterday and so far today. Weights are inconsistent and unreliable indicator due to what is most likely inconsistent methods of measurement daily. Continue Lasix 20 mg IV twice daily Continue telemetry Continue daily weights, strict I and O, 1.5 L fluid restriction. Qualifiers: Heart failure chronicity: acute Qualified Code(s): I50.31 - Acute diastolic (congestive) heart failure - Time Spent With Patient Total time spent is greater than 50% in coordination of care (as documented) at patient's floor/unit and/or counseling patient: less than 15 minutes - Subjective Interval history: Patient was seen and assessed at bedside at 1200 PM. He denies any headache, blurred vision, nausea, vomiting, diarrhea. Denies any chest pain or shortness of breath. BLE edema is improving slowly . He states that he is feeling better and is agreeable to go to the [place] rehab for PT/OT, but today states that he feels like he could use 2-3 more days here. - Constitutional Vitals: Temp Pulse Resp BP Pulse Ox 98.1 F 78 16 180/76 90 11/02/17 16:02 11/02/17 16:02 11/02/17 16:02 11/02/17 16:02 11/02/17 16:02 General appearance: Present: cooperative, A&O X 3, pleasant, no acute distress, obese, answers questions appropriately - Head Head exam: Present: atraumatic, normal inspection, normocephalic - Eye Eye exam: Present: normal appearance, conjuntiva pink, sclera anicteric - Neck Neck exam general surgery: Present: supple, trachea midline. Absent: lymphadenopathy, tenderness - Respiratory Respiratory exam: Present: decreased breath sounds, CTAB. Absent: accessory muscle use, chest wall tenderness, rales, respiratory distress, rhonchi, wheezes - Cardiovascular Cardiovascular exam: Present: RRR, +S1, +S2. Absent: diastolic murmur, gallop, rubs, systolic murmur - GI/Abdominal GI/Abdominal exam: Present: normal bowel sounds, soft. Absent: distended, hepatomegaly, tenderness - Extremities Exam Extremities exam: Present: normal capillary refill, normal inspection, warm, radial pulses palpable and symmetrical. Absent: calf tenderness, cyanotic, pedal edema, tenderness - Neurological Exam Neurological exam: Present: alert, oriented X3, no focal deficits. Absent: facial droop, speech deficit - Skin Skin exam: Present: dry, intact, normal color, warm. Absent: rash Internal Medicine: Result - Labs CBC & Chem 7: 11/02/17 06:34 11/02/17 06:34 Labs: Short CBC 11/02/17 Range/Units 06:34 WBC 8.3 (4.3-11.1) K/mcL Hgb 9.3 L (12.9-16.9) g/dL Hct 29.0 L (37.5-50.1) % Plt Count 241 (140-400) K/mcL Neutrophils # 6.1 (1.6-8.9) K/mcL BMP 11/02/17 06:34 Sodium 141 Potassium 3.7 Chloride 105 Carbon Dioxide 29 BUN 30 H Creatinine 2.01 H Glucose 386 H Calcium 8.4 L Consult Discharge Plan - Plan [facility]errals: [facility] [Primary Care Provider] -
[2017-11-02] MEDS: Melatonin 3 MG TABLET PO SCH (21:42)
[2017-11-03] MEDS: *HR* OxyCODONE Immed Rel 5 MG TABLET PO PRN (00:05)
[2017-11-03 04:28] LABS: Basophils % 0.4 %; Eosinophils # 0.4 K/mcL (0.0-0.6); Eosinophils % 4.1 %; Hematocrit 30.3 % (37.5-50.1); Hemoglobin 9.8 g/dL (12.9-16.9); Immature Granulocytes % 0.3 % (0-4); Lymphocytes # 1.4 K/mcL (0.6-4.6); Lymphocytes % 15.2 %; Mean Corpuscular HGB Conc 32.3 g/dL (31.6-35.5); Mean Corpuscular Hemoglobin 29.7 pg (28.0-33.3); Mean Corpuscular Volume 91.8 fL (83.0-100.0); Mean Platelet Volume 12.1 fL (9.4-12.4); Monocytes # 0.6 K/mcL (0.0-1.3); Monocytes % 6.4 %; Neutrophils # 6.6 K/mcL (1.6-8.9); Platelet Count 271 K/mcL (140-400); Red Cell Distribution Width 14.2 % (11.5-14.5); Segmented Neutrophils % 73.6 %
[2017-11-03 04:45] LABS: Calcium 8.9 mg/dL (8.6-10.3); Potassium 4.2 mEq/L (3.5-5.1)
[2017-11-03] MEDS: *HR* Enoxaparin 40 MG/0.4 ML SYRINGE SQ SCH (05:15)
[2017-11-03] MEDS: amLODIPine 5 MG TABLET PO SCH (08:17)
[2017-11-03] MEDS: Baclofen 10 MG TABLET PO SCH ×2 (08:18→14:12)
[2017-11-03] MEDS: Aspirin Enteric Coated 325 MG Tablet PO SCH (08:18)
[2017-11-03] MEDS: Insulin LISPRO 300 UNITS/3 ML VIAL SQ SCH ×3 (08:19→17:18)
[2017-11-03] MEDS: Pregabalin 75 MG CAPSULE PO SCH (08:19)
[2017-11-03] MEDS: Furosemide 20 MG/2 ML VIAL IVP SCH (08:19)
[2017-11-03 16:09] VITALS: BP 175/76
--- NOTE | 2017-11-03 17:16 | Discharge Summary ---
Orders not resulted at time of discharge: Pending orders 10/30/17 12:00 Culture,Blood [BC] Routine Date of Encounter: 11/03/17 Time of Encounter: 09:35 - Discharge Diagnosis (1) Aspiration pneumonia Priority: Primary Status: Acute Comments: Continue po antibiotics Oxygen as needed to maintain sats greater than 92% Continue nebulizer treatments Labs within normal limits, no fever, no chills, no tachycardia. Qualifiers: Aspiration pneumonia type: unspecified Laterality: bilateral Lung location: lower lobe of lung Qualified Code(s): J69.0 - Pneumonitis due to inhalation of food and vomit (2) CKD (chronic kidney disease), stage III Priority: Secondary Status: Chronic Comments: Renal function has significantly improved. Serum creatinine 1.95, GFR 35. Patient states that his renal function has not been that good in several years. Continue to monitor at ECF Try to avoid nephrotoxins. (3) Falls frequently Priority: Secondary Status: Acute Comments: Monitor for falls and safety, patient pointed [place] for inpatient rehabilitation. (4) History of total knee arthroplasty Priority: Secondary Status: Acute Comments: Recent knee surgery in September. Patient going to SNF/ECF after discharge from rehabilitation. Site has transparent dressing over it there is no redness, no bleeding, no drainage, he moves the joint without difficulty. Qualifiers: Laterality: left Qualified Code(s): Z96.652 - Presence of left artificial knee joint (5) Leukocytosis Priority: Secondary Status: Resolved Comments: Resolved. Qualifiers: Leukocytosis type: bandemia Qualified Code(s): D72.825 - Bandemia (6) DVT prophylaxis Priority: Secondary Status: Acute Comments: Lovenox subcutaneous. (7) Diabetes mellitus Priority: Secondary Status: Chronic Comments: Patient with poorly controlled diabetes, A1c 7.6. Continue sliding scale insulin, Accu-Cheks before meals and at bedtime, diabetic diet, as well as 1.5 L fluid restriction for CHF/edema. Pt can benefit from diabetes education after discharge. 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 Continue home medications. Qualifiers: Hypertension type: essential hypertension Qualified Code(s): I10 - Essential (primary) hypertension (9) Morbid obesity with BMI of 40.0-44.9, adult Priority: Secondary Status: Chronic Comments: Continue to encourage lifestyle modifications, exercise and diet. (10) Peripheral edema Priority: Secondary Status: Acute Comments: Peripheral edema has improved with diuresis and fluid restriction. Continue Lasix by mouth. (11) Diastolic CHF Priority: Secondary Status: Acute Comments: Patient appears to be improved. He has diuresed well with approximately - 3000ml diuresis and approximately 3 kg weight loss, though weight may be inaccurate. Patient denies prior episode of CHF in the past, so this is acute exacerbation of diastolic CHF. Continue his Lasix by mouth at the care home, maintain 1.5 L fluid restriction and low sodium diet. Qualifiers: Heart failure chronicity: acute Qualified Code(s): I50.31 - Acute diastolic (congestive) heart failure Hospital course: Mr. Severino is a 62 year old male - Time Spent with Patient Total time spent providing and/or coordinating discharge services: - Discharge Medications Prescriptions: Amoxicillin/Clavulanate [Augmentin] 875 mg PO BIDWM #10 tablet Home Medications: Atorvastatin [Lipitor] 10 mg PO HS 06/19/15 [History] Melatonin [Melatin] 3 mg PO HS 06/19/15 [History] Sertraline [Zoloft] 150 mg PO DAILY 06/19/15 [History] Aspirin Enteric Coated [Aspirin EC] 325 mg PO DAILY #21 tablet. 02/19/17 [Rx] Baclofen 20 mg PO BID 02/20/17 [History] Pregabalin [Lyrica] 150 mg PO BID 02/20/17 [History] Acetaminophen [Tylenol] 650 mg PO Q6H PRN 10/30/17 [History] Amlodipine Besylate 10 mg PO DAILY 10/30/17 [History] Bisacodyl [Dulcolax] 10 mg PO BID PRN 10/30/17 [History] Buprenorphine [Butrans] 15 mcg TD QWEEK 10/30/17 [History] Cholecalciferol (D-3) [Vitamin D] 1,000 unit PO DAILY 10/30/17 [History] Cyanocobalamin (Vitamin B-12) [Vitamin B12] 1,000 mcg PO BID 10/30/17 [History] Diclofenac Sodium [Voltaren] 2 gm TP QID 10/30/17 [History] Insulin Glargine [Lantus] 20 unit SQ BID 10/30/17 [History] Lidocaine Patch [Lidoderm 5% patch] 1 each TP DAILY 10/30/17 [History] Lidocaine [Anecream] 1 appl RC Q4H PRN 10/30/17 [History] OxyCODONE Immed Rel [Roxicodone 5 MG] 5 mg PO BID PRN 10/30/17 [History] Tamsulosin [Flomax] 0.4 mg PO DAILY 10/30/17 [History] Amoxicillin/Clavulanate [Augmentin] 875 mg PO BIDWM #10 tablet 11/03/17 [Rx] Insulin LISPRO [HumaLOG] 0 units SQ HS vial 11/03/17 [Rx] Insulin LISPRO [HumaLOG] 0 units SQ TIDAC vial 11/03/17 [Rx] amLODIPine [Norvasc] 10 mg PO DAILY tablet 11/03/17 [Rx] Allergies/Adverse Reactions: 3 Allergy/AdvReac Type Severity Reaction Status Date / Time adhesive tape Allergy Hives Verified 02/20/17 14:17 Date of admission: 10/30/17 10:32 [facility] care physician: [facility] Consults: 10/30/17 10:40 Consult to Orthopedic Surgery [CONS] Routine Consulting Provider: [facility] Reason for Consult: left knee recent surgery now swollen and warm Time Notified: 10:40 Call Completed: No 10/30/17 10:41 Consult to Infectious Diseases [CONS] Routine Consulting Provider: Infectious Disease [facility] Reason for Consult: septic left knee< aspiration pneumonia Time Notified: 10:41 Call Completed: No 10/31/17 08:17 Consult to Physical Therapy [CONS] Routine Comment: Evaluate, develop and implement POC Reason for Consult: Evaluation Does patient have active BEDREST order?: No Is patient medically & hemodynamically stable?: Yes OT [Consult to Occupational Therapy] [CONS] Routine Comment: Evaluate, develop and implement POC Reason for Consult: Evaluation Does patient have active BEDREST order?: No Is patient medically & hemodynamically stable?: Yes 10/31/17 12:15 Consult to Nephrology [CONS] Routine Consulting Provider: [facility]/ORIHELLEN/BRANDY/TO Reason for Consult: Pt request. Peripheral edema, pt states that the last time this happened, "it was my kidneys". Pt states that he has been out of Lasix at home for 2-3 days prior to admission. Pt sees Dr. Byrd and has requested to see him while inpatient. Time Notified: 12:19 Call Completed: Yes 10/31/17 18:39 Consult to [facility] [CONS] Routine Reason for SW Consult: Charge planning Discharging clinician: Ivana Espino Anticipated date of discharge: 11/03/17 - Constitutional Vitals: Temp Pulse Resp BP Pulse Ox 97.6 F 73 18 175/76 94 11/03/17 14:56 11/03/17 14:56 11/03/17 14:56 11/03/17 16:09 11/03/17 14:56 General appearance: Present: cooperative, A&O X 3, pleasant, no acute distress, obese, answers questions appropriately - Patient Status Disposition: Transfer [facility] Condition: Good Functional capacity at discharge: uses cane/walker Overall status at discharge: patient is progressing back to baseline - Discharge Instructions [facility] With: [facility] [Primary Care Provider[facility] - - Diet and Activity Activity: as per physical therapy Diet: diabetic diet, low salt diet (1.5 liter fluid restriction)
--- NOTE | 2017-11-03 17:32 | Physician Discharge Referral ---
ExtendedCare Referral Info Transfer To: [place] [facility] Provider in Charge after Transfer: PCP Institutional Level of Care: Skilled - Diagnosis (1) Aspiration pneumonia Priority: Primary Status: Acute (2) CKD (chronic kidney disease), stage III Priority: Secondary Status: Chronic (3) Falls frequently Priority: Secondary Status: Acute (4) History of total knee arthroplasty Priority: Secondary Status: Acute (5) Leukocytosis Priority: Secondary Status: Resolved (6) DVT prophylaxis Priority: Secondary Status: Acute (7) Diabetes mellitus Priority: Secondary Status: Chronic (8) Hypertension Priority: Secondary Status: Chronic (9) Morbid obesity with BMI of 40.0-44.9, adult Priority: Secondary Status: Chronic (10) Peripheral edema Priority: Secondary Status: Acute (11) Diastolic CHF Priority: Secondary Status: Acute Prognosis: Good Aware of Diagnosis: Patient - Transfer Medications Prescriptions: Amoxicillin/Clavulanate [Augmentin] 875 mg PO BIDWM #10 tablet Home Medications: Atorvastatin [Lipitor] 10 mg PO HS 06/19/15 [History] Melatonin [Melatin] 3 mg PO HS 06/19/15 [History] Sertraline [Zoloft] 150 mg PO DAILY 06/19/15 [History] Aspirin Enteric Coated [Aspirin EC] 325 mg PO DAILY #21 tablet. 02/19/17 [Rx] Baclofen 20 mg PO BID 02/20/17 [History] Pregabalin [Lyrica] 150 mg PO BID 02/20/17 [History] Acetaminophen [Tylenol] 650 mg PO Q6H PRN 10/30/17 [History] Amlodipine Besylate 10 mg PO DAILY 10/30/17 [History] Bisacodyl [Dulcolax] 10 mg PO BID PRN 10/30/17 [History] Buprenorphine [Butrans] 15 mcg TD QWEEK 10/30/17 [History] Cholecalciferol (D-3) [Vitamin D] 1,000 unit PO DAILY 10/30/17 [History] Cyanocobalamin (Vitamin B-12) [Vitamin B12] 1,000 mcg PO BID 10/30/17 [History] Diclofenac Sodium [Voltaren] 2 gm TP QID 10/30/17 [History] Insulin Glargine [Lantus] 20 unit SQ BID 10/30/17 [History] Lidocaine Patch [Lidoderm 5% patch] 1 each TP DAILY 10/30/17 [History] Lidocaine [Anecream] 1 appl RC Q4H PRN 10/30/17 [History] OxyCODONE Immed Rel [Roxicodone 5 MG] 5 mg PO BID PRN 10/30/17 [History] Tamsulosin [Flomax] 0.4 mg PO DAILY 10/30/17 [History] Amoxicillin/Clavulanate [Augmentin] 875 mg PO BIDWM #10 tablet 11/03/17 [Rx] Insulin LISPRO [HumaLOG] 0 units SQ HS vial 11/03/17 [Rx] Insulin LISPRO [HumaLOG] 0 units SQ TIDAC vial 11/03/17 [Rx] amLODIPine [Norvasc] 10 mg PO DAILY tablet 11/03/17 [Rx] Allergies/Adverse Reactions: 3 Allergy/AdvReac Type Severity Reaction Status Date / Time adhesive tape Allergy Hives Verified 02/20/17 14:17 - Respiratory Orders Oxygen / L per min (2 liters via nasal canula. Titrate to maintain sats > 92%) Smoking Cessation: Smoking cessation has been advised. For more information, call the [place] Tobacco Quit Line at 9-561-AOJC-NOW. - Lab Orders Lab Orders: CBC, U/A, [place] 17 - Ancillary Orders May consult with Dentist, Manufacturing Recruiter, Emergency Room Rn PRN - Advance Directives Code Status: Full Code - Mobility Orders Chair, Ambulate - Rehabiliation Orders Rehab Potential: Fair Rehab Orders: ROM Exercises, Evaluation for Physical Therapy, Evaluation for Occupational Therapy - Treatments Skin tear care topically daily PRN per policy, May check for fecal impaction rectally daily PRN, Fleet enema rectally every other day PRN cleansing purposes - Diet Orders Renal (1.5 liter fluid fluid restriction), Cardiac CERTIFICATION: I certify that the transfer of the above named patient to an Extended Care Facility is necessary for the continuing treatment of the diagnosis listed. The above information is true and accurate reflection of patient's current condition. Confidential - Redisclosure prohibited without a patient's written consent.
== END 2017-11-03 18:57 | DRG 177 ==
LOC: 3BNU
PROVIDERS: ADMIT Internal Medicine Cardiovascular Disease; ATTEND Registered Nurse

== ENCOUNTER 2018-11-14 21:02 | Inpatient (IN) ==
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
--- NOTE | 2018-11-14 22:45 | Emergency Department Note ---
Disposition Clinical Impression: Tremor Fall Qualifiers: Encounter type: initial encounter Qualified Code(s): W19.XXXA - Unspecified fall, initial encounter Chest pain Qualifiers: Chest pain type: other chest pain Qualified Code(s): R07.89 - Other chest pain Disposition: Admitted As Inpatient Condition: Fair General Adult HPI - General Chief complaint: ED General Medical Stated complaint: tremors Time Seen by Provider: 11/14/18 21:16 Source: patient, EMS Limitations: no limitations Nursing Notes Reviewed: Yes Vital Signs Reviewed: Yes - History of Present Illness Pain Scale: 7 - Related Data Home Medications Medication Instructions Recorded Confirmed Atorvastatin [Lipitor] 10 mg PO HS 06/19/15 11/14/18 Melatonin [Melatin] 3 mg PO HS 06/19/15 11/14/18 Sertraline [Zoloft] 200 mg PO DAILY 06/19/15 11/14/18 Baclofen 20 mg PO BID 02/20/17 11/14/18 Pregabalin [Lyrica] 150 mg PO BID 02/20/17 11/14/18 Acetaminophen [Tylenol] 500 mg PO Q6H PRN 10/30/17 11/14/18 Amlodipine Besylate 10 mg PO DAILY 10/30/17 10/30/17 Bisacodyl [Dulcolax] 10 mg PO BID PRN 10/30/17 10/30/17 Buprenorphine [Butrans] 15 mcg TD QWEEK 10/30/17 10/30/17 Cholecalciferol (D-3) [Vitamin D] 1,000 unit PO DAILY 10/30/17 10/30/17 Cyanocobalamin (Vitamin B-12) 1,000 mcg PO BID 10/30/17 10/30/17 [Vitamin B12] Diclofenac Sodium [Voltaren] 2 gm TP QID 10/30/17 10/30/17 Insulin Glargine [Lantus] 20 unit SQ BID 10/30/17 10/30/17 Lidocaine Patch [Lidoderm 5% patch] 1 each TP DAILY 10/30/17 11/14/18 Lidocaine [Anecream] 1 appl RC Q4H PRN 10/30/17 10/30/17 OxyCODONE Immed Rel [Roxicodone 5 5 mg PO BID PRN 10/30/17 10/30/17 MG] Tamsulosin [Flomax] 0.4 mg PO DAILY 10/30/17 11/14/18 Furosemide [Lasix] 40 mg PO BID 11/14/18 11/14/18 Insulin Glargine [Lantus] 30 unit IJ BID 11/14/18 11/14/18 Insulin Regular, Human [Novolin R] 12 unit IJ TID 11/14/18 11/14/18 Ipratropium/Albuterol Neb [Duoneb] 3 ml IH Q6HR 11/14/18 11/14/18 Previous Rx's Medication Instructions Recorded Aspirin Enteric Coated [Aspirin EC] 325 mg PO DAILY #21 tablet. 02/19/17 Amoxicillin/Clavulanate [Augmentin] 875 mg PO BIDWM #10 tablet 11/03/17 Insulin LISPRO [HumaLOG] 0 units SQ HS vial 11/03/17 Insulin LISPRO [HumaLOG] 0 units SQ TIDAC vial 11/03/17 amLODIPine [Norvasc] 10 mg PO DAILY tablet 11/03/17 Allergies Allergy/AdvReac Type Severity Reaction Status Date / Time adhesive tape Allergy Hives Verified 02/20/17 14:17 Past Medical History - Past Medical History Medical history: Reports: CHF, DVT, diabetes, hypertension, pulmonary embolus, renal disease, other Surgical history: Reports: appendectomy, knee replacement (Left September 2017.), orthopedic, other Psychiatric history: Reports: no psych history - Social History Smoking Status: Former smoker Smokeless Tobacco Status: No Alcohol use: Reports: none Drug use: Reports: none Physical Exam - General Limitations: no limitations General appearance: alert Course Vital Signs Temperature 98.3 F 11/14/18 21:09 Pulse Rate 80 11/14/18 21:09 Respiratory Rate 16 11/14/18 21:09 Blood Pressure 173/74 11/14/18 21:09 O2 Sat by Pulse Oximetry 99 11/14/18 21:09 Temperature 98.3 F 11/14/18 21:09 Pulse Rate 67 11/14/18 22:07 Respiratory Rate 12 11/14/18 22:07 Blood Pressure 138/68 11/14/18 22:07 O2 Sat by Pulse Oximetry 94 11/14/18 22:07 Oxygen Delivery Oxygen Delivery Nasal Cannula Medical Decision Making - Medical Records Medical records reviewed: Yes I reviewed the patient's medical records. - Lab Data Lab results reviewed: Yes I reviewed the patient's lab results. Lab Results 11/14/18 Range/Units 21:34 Troponin I 0.05 H* (< 0.04) ng/mL - Radiology Data Radiology results reviewed: Yes I reviewed the patient's radiology results. Chest X-Ray 11/14/18 21:19 IMPRESSION: Cardiomegaly without parenchymal consolidation or pleural effusion. Chronic change related to COPD. D/ / Joce Parker MD / Joce Parker MD Interpreting Provider: Joce Parker MD Head CT 11/14/18 21:19 IMPRESSION: No acute intracranial abnormality. D/ / Samuel Arrieta MD / Samuel Arrieta MD Interpreting Provider: Samuel Arrieta MD - EKG Data EKG #1 EKG attestation: Yes I reviewed and interpreted this EKG. EKG results narrative: EKG shows normal sinus rhythm with ventricular rate is 71. Nonspecific intraventricular conduction delay. No significant ST segment elevation or depression. No significant change from prior EKG dated 02/21/2017. Attestation Statement - Attestation Attestation: I, Meek So MD, personally evaluated this patient and discussed their management with the resident physician. I reviewed the resident's note and agree with the documented findings, medical decision making, and plan of care. Patient is a 63-year-old male transferred here from the [place] urgent care. Patient presented there complaining of increased tremors, primarily of the right arm. He has had this problem previously and reported is usually worse with stress. There is sign just a few days ago. For the last couple of days he has had significantly increased tremors of both upper extremities. He apparently also had some chest pain earlier but denies chest pain at present. He was seen at the [place]. He apparently became obtunded with hypoxia and respirato ry rate of about 4. Pupils were pinpoint. EMS gave him 4 mg of intranasal Narcan in route to this facility with marked improvement in his mental status and respiratory status. Patient is on multiple chronic medications due to a traumatic brain injury among other things. He takes baclofen and wears a pain patch. His dispenses all of his medications to him other than he has Percocet which he takes every 6 hours for pain and he apparently manages these himself. He denies taking any extra Percocet. He denies any suicidal ideation but is tearful and states he has been under a lot of stress because of the of his son. On examination patient is a morbidly obese male in no acute distress. He is alert and oriented 3. There is no cyanosis or diaphoresis. Breath sounds are clear and equal bilaterally. Heart regular rate and rhythm. Abdomen is soft and nontender with normal bowel sounds. Labs were obtained at the [place]. Troponin there was 0.047. Repeat troponin obtained here and was 0.05. EKG shows normal sinus rhythm with ventricular rate is 71. Nonspecific intraventricular conduction delay. No significant ST segment elevation or depression. No significant change from prior EKG dated 02/21/2017. Chest x-ray shows cardiomegaly but no acute abnormality. Head CT negative. The hospitalist, Dr. Natarajan, was consulted and accepted admission of the patient.
[2018-11-15 00:28] LABS: Basophils # 0.1 K/mcL (0.0-0.2); Basophils % 0.5 %; Eosinophils # 0.1 K/mcL (0.0-0.6); Eosinophils % 1.3 %; Hematocrit 36.2 % (37.5-50.1); Immature Granulocytes % 0.2 % (0-4); Lymphocytes # 1.7 K/mcL (0.6-4.6); Lymphocytes % 18.5 %; Mean Corpuscular HGB Conc 33.1 g/dL (31.6-35.5); Mean Corpuscular Hemoglobin 30.2 pg (28.0-33.3); Mean Platelet Volume 11.5 fL (9.4-12.4); Monocytes # 0.9 K/mcL (0.0-1.3); Monocytes % 9.5 %; Neutrophils # 6.4 K/mcL (1.6-8.9); Platelet Count 179 K/mcL (140-400); Red Blood Count 3.98 M/mcL (4.19-5.50); Red Cell Distribution Width 14.1 % (11.5-14.5)
[2018-11-15 00:37] LABS: Prothrombin Time 10.9 Seconds (9.4-12.1)
[2018-11-15 00:38] LABS: Activated Partial Thrombo Time 30.5 Seconds (26.0-36.0); Heparin anti-factor XA UFH 0.02 IU/mL (0.30-0.70)
[2018-11-15 00:46] LABS: Calcium 8.8 mg/dL (8.6-10.3); Potassium 3.2 mEq/L (3.5-5.1)
[2018-11-15] MEDS ORDERED: Potassium Chloride Elixir 20 MEQ/15 ML UDC PO ONE (00:53)
[2018-11-15] MEDS ORDERED: Dextrose Gel 15 GM/37.5 ML TUBE PO PRN ×2 (00:55)
[2018-11-15] MEDS ORDERED: *HR* Dextrose 50 % in Water (Syg) 50 ML SYRINGE IVP PRN (00:55)
[2018-11-15] MEDS ORDERED: Ringers Solution, Lactated 1,000 ML IVC SCH (01:00)
[2018-11-15] MEDS ORDERED: Acetaminophen 325 MG TABLET PO PRN (02:44)
--- NOTE | 2018-11-15 03:10 | Internal Med History&Physical ---
Date of Encounter: 11/14/18 Time of Encounter: 23:50 Internal Medicine - H&P: HPI Chief complaint: chest pain Admitted From: Home Plans for Post Hospital Care: Home History of present illness: Mumtaz Severino is a 63 year old obese man with hypertension, diabetes and chronic kidney disease who was referred to our ER from the [place] urgent care for evaluation of chest pain that started earlier in the day. He localizes it to his left chest area and is not reproducible on palpation. At the [place] was seen to have a troponin of 0.047 with their upper limit of normal being 0.045. It is stated that at the time the [place] [facility] arrived to pick him up he was hypoxic to the low 70s, cyanotic with pinpoint pupils and resolved after administration of naloxone. Of note, it is seen that he wears a buprenorphine patch. Patient has seemingly been more depressed with his son passing away 3 days ago and buried yesterday. He does not know any of his medications as his manages them all. He denies having any new medications introduced of recent. In the ER here his EKG showed normal sinus rhythm and lab work revealed a troponin of 0.05 which is not the first positive test we have had in our system. He was therefore referred for admission. At the time of my assessment his main complaint is actually tremors of his arms which he says is new over the last few days and that it has never happened to him in the past. Vitals: Reviewed General: Obese white man lying in bed in NAD Skin: Dry, warm HEENT: Moist mucous membranes. No conjunctivae pallor. Neck: No lymphadenopathy. No JVD. No carotid bruits. No palpable thyroid. Chest: Normal thoracic expansion. Normal breath sounds. Clear to auscultation. Heart: Normal S1 & S2; rhythmic. No rubs or murmurs. Abdomen: Non-distended, soft and non-tender to palpation. No peritoneal reaction. Extremities: No calf tenderness. Normal distal pulses. Neurological: Awake, alert and oriented to person, place and time. Involunatry dyskinetic movements of both arms with a notable tremor at rest. Psych: Affect flat. Assessment/Plan Chest pain: Will monitor on telemetry, trend troponins and get an echo for morphologic evaluation. The troponin elevation is noted but very mild and not the first positive in our system. If there is an increasing trend noted, will start heparin gtt and consult cardiology for further recommendations. Tremors: Reportedly new onset over the last 2-3 days. This seems to correlate with the passing of his family member. He denies new medications being introduced but does acknowledge taking medications for anxiety and depression which potentially could cause such issues for example he is on sertraline which can induce akathisia. Will hold on resuming his home medications until everything is verified. He should undergo preferably a brain MRI however with his constant shaking right now, will hold off till morning until he is assessed by neurology; consult requested. Head CT is unremarkable. Diabetes: Will keep on insulin sliding scale. HTN: Will resume home oral antihypertensives. CKD: Stable at stage 3. Will avoid nephrotoxic agents. Past Med Surg Social Fam HX - Past Medical History Medical history: CHF, DVT, diabetes, hypertension, pulmonary embolus, renal disease, other Additional medical history: TBI Psychiatric history: anxiety, depression - Past Surgical History Surgical History: appendectomy, knee replacement, orthopedic, other Additional surgical history: Total Left knee replacement. Umberto filter - Social History Smoking Status: Former smoker Smokeless Tobacco Status: No Alcohol use: none Drug use: none - Family History Father Adopted: No Living Status: Hx Family Cardiac Disorders: Yes (Patients father from an [place]. He states that it was his 7th [place].) Hx Family Respiratory Disorders: No Hx Family Cancer: No Hx Family GI Disorders: No Hx Family Endocrine Disorder: No Hx Family Neuromuscular Disorders: No Hx Family Neurologic Disorders: No Hx Family HEENT Disorders: No Hx Family Autoimmune Disorders: No Internal Medicine - H&P: Meds Atorvastatin [Lipitor] 10 mg PO HS 06/19/15 [History] Melatonin [Melatin] 3 mg PO HS 06/19/15 [History] Sertraline [Zoloft] 200 mg PO DAILY 06/19/15 [History] Aspirin Enteric Coated [Aspirin EC] 325 mg PO DAILY #21 tablet. 02/19/17 [Rx] Baclofen 20 mg PO BID 02/20/17 [History] Pregabalin [Lyrica] 150 mg PO BID 02/20/17 [History] Acetaminophen [Tylenol] 500 mg PO Q6H PRN 10/30/17 [History] Amlodipine Besylate 10 mg PO DAILY 10/30/17 [History] Bisacodyl [Dulcolax] 10 mg PO BID PRN 10/30/17 [History] Buprenorphine [Butrans] 15 mcg TD QWEEK 10/30/17 [History] Cholecalciferol (D-3) [Vitamin D] 1,000 unit PO DAILY 10/30/17 [History] Cyanocobalamin (Vitamin B-12) [Vitamin B12] 1,000 mcg PO BID 10/30/17 [History] Diclofenac Sodium [Voltaren] 2 gm TP QID 10/30/17 [History] Insulin Glargine [Lantus] 20 unit SQ BID 10/30/17 [History] Lidocaine Patch [Lidoderm 5% patch] 1 each TP DAILY 10/30/17 [History] Lidocaine [Anecream] 1 appl RC Q4H PRN 10/30/17 [History] OxyCODONE Immed Rel [Roxicodone 5 MG] 5 mg PO BID PRN 10/30/17 [History] Tamsulosin [Flomax] 0.4 mg PO DAILY 10/30/17 [History] Amoxicillin/Clavulanate [Augmentin] 875 mg PO BIDWM #10 tablet 11/03/17 [Rx] Insulin LISPRO [HumaLOG] 0 units SQ HS vial 11/03/17 [Rx] Insulin LISPRO [HumaLOG] 0 units SQ TIDAC vial 11/03/17 [Rx] amLODIPine [Norvasc] 10 mg PO DAILY tablet 11/03/17 [Rx] Furosemide [Lasix] 40 mg PO BID 11/14/18 [History] Insulin Glargine [Lantus] 30 unit IJ BID 11/14/18 [History] Insulin Regular, Human [Novolin R] 12 unit IJ TID 11/14/18 [History] Ipratropium/Albuterol Neb [Duoneb] 3 ml IH Q6HR 11/14/18 [History] Allergy/AdvReac Type Severity Reaction Status Date / Time adhesive tape Allergy Hives Verified 02/20/17 14:17 All Systems PM: A 10-system review of systems was performed and is negative for pertinent findings except as documented above in the HPI. - Constitutional Vitals: Temp Pulse Resp BP Pulse Ox 98.1 F 57 16 123/66 95 11/15/18 02:57 11/15/18 02:57 11/15/18 02:57 11/15/18 02:57 11/15/18 02:57 Exam: . Internal Med - H&P Results - Labs CBC & Chem 7: 11/14/18 23:51 11/14/18 23:51 Labs: Short CBC 11/14/18 Range/Units 23:51 WBC 9.2 (4.3-11.1) K/mcL Hgb 12.0 L (12.9-16.9) g/dL Hct 36.2 L (37.5-50.1) % Plt Count 179 (140-400) K/mcL Neutrophils # 6.4 (1.6-8.9) K/mcL BMP 11/14/18 23:51 Sodium 142 Potassium 3.2 L Chloride 106 Carbon Dioxide 28 BUN 55 H Creatinine 2.29 H Glucose 198 H Calcium 8.8 Cardiac Enzymes 11/14/18 Range/Units 21:34 Troponin I 0.05 H* (< 0.04) ng/mL - Impressions ITS Impressions Chest X-Ray 11/14/18 21:19 IMPRESSION: Cardiomegaly without parenchymal consolidation or pleural effusion. Chronic change related to COPD. D/ / Joce Parker MD / Joce Parker MD Interpreting Provider: Joce Parker MD Head CT 11/14/18 21:19 IMPRESSION: No acute intracranial abnormality. D/ / Samuel Arrieta MD / Samuel Arrieta MD Interpreting Provider: Samuel Arrieta MD - Time Spent With Patient Total time spent is greater than 50% in coordination of care (as documented) at patient's floor/unit and/or counseling patient: Greater than 35 minutes
[2018-11-15] MEDS: Ipratropium/Albuterol Neb 3 ML IH SCH ×4 (03:49→21:57)
[2018-11-15] MEDS: Insulin LISPRO 300 UNITS/3 ML VIAL SQ SCH ×3 (05:59→17:10)
[2018-11-15 07:42] LABS: Amphetamine Screen,Urine Negative ng/mL (Cutoff=1000); Barbiturate Screen,Urine Negative ng/mL (Cutoff=200); Opiate Screen,Urine Positive ng/mL (Cutoff=300)
[2018-11-15 07:44] LABS: Benzodiazepines Screen,Urine Negative ng/mL (Cutoff=300); Cannabinoid Screen,Urine Negative ng/mL (Cutoff = 50); Cocaine Screen,Urine Negative ng/mL (Cutoff= 300); Phencyclidine Screen,Urine Negative ng/mL (Cutoff=25)
[2018-11-15 09:15] LABS: Calcium 8.4 mg/dL (8.6-10.3); Potassium 3.4 mEq/L (3.5-5.1)
--- NOTE | 2018-11-15 10:29 | Event Note ---
Date of Encounter: 11/15/18 Time of Encounter: 10:27 Patient was seen and examined earlier this morning by hospitalist services-he did have some chest pain on presentation d-dimer was elevated patient is have past history of PE not on any anticoagulation -unable to perform CTA due to history of CAD Will order VQ scan-lower extremity Dopplers-cardiology has been consulted as well as neurology due to tremors-we will be cautious with opioids since patient did receive Narcan at the [facility] and was hypoxic prior to transfer. Currently he is hemodynamically stable this time.
--- NOTE | 2018-11-15 12:48 | Neurology - Consult Note ---
Date of Encounter: 11/15/18 Time of Encounter: 12:44 Assessment and Plan (1) Tremor Current Visit: Yes Status: Acute Likely a combination of postural tremors with significant component of asterixis likely complicated by medical encephalopathy, such as respiratory failure and also worsening kidney function. The asterixis component of his tremors are jerky resembling myoclonic jerking movements and this part may respond to medical treatment. he may have baseline component of benign essential tremors that likely in his case complicated by anxiety and medication side effects Currently due to ongoing medical condition i would recommend no additional treatment for such tremors. After medical conditions stabilize then he should follow up with neurology at OR or here for further treatment recommendations. Currently i do not see typical features of Parkinsons disease but this may not be best evaluated due to general weakness and discomforts with pain. Please continue medical and supportive care History of Present Illness Chief complaint: Increasing tremors HPI: Mr. Severino is a 63 year old male with past medical history significant for chronic back pain, knee pain, obesity, diabetes, chronic kidney disease, hypertension, who presented from [facility] with the chest pain and altered mental status as well as increasing tremors. Neurology was consulted due to increasing tremors involving his hand and leg. Patient states that he has been experiencing tremors involving his right hand and leg about 3 months ago without any specific cause or provoking factor. The tremors have been getting worse lately and also involve the left side since the last few days. The tremors can be more prominent when he is nervous. He does not know there is any factor that can make his tremors better or worse other than that anxiety and nervousness make his tremors worse. The tremors can be off rather large amplitude and also has a component myoclonic jerks as well. Reportedly, the patient was evaluated in the [place] emergency room and was found to have respiratory hypoxemia and he also developed chest pain at that time and was subsequently transferred here for further evaluation. Patient's oxygen saturation and breathing difficulty improved after the use of Narcan. Patient does have rather significant back pain and has been on pain regimen regularly. Initial CT of the head showed no acute intracranial abnormality. At the time of this interview, the patient major complaint was still diffuse back pain. He does have rhythmic tremors involving his right hand and leg especially when keeping her posture or when bearing weight. However, the tremors are less prominent when the patient is distracted. Patient also has asterixis noted bilaterally Past Med Surg Social Fam HX - Past Medical History Medical history: CHF, DVT, diabetes, hypertension, pulmonary embolus, renal disease, other Additional medical history: TBI Psychiatric history: anxiety, depression - Past Surgical History Surgical History: appendectomy, knee replacement, orthopedic, other Additional surgical history: Total Left knee replacement. Umberto filter - Social History Smoking Status: Former smoker Smokeless Tobacco Status: No Alcohol use: none Drug use: none - Family History Father Adopted: No Living Status: Hx Family Cardiac Disorders: Yes (Patients father from an [place]. He states that it was his 7th [place].) Hx Family Respiratory Disorders: No Hx Family Cancer: No Hx Family GI Disorders: No Hx Family Endocrine Disorder: No Hx Family Neuromuscular Disorders: No Hx Family Neurologic Disorders: No Hx Family HEENT Disorders: No Hx Family Autoimmune Disorders: No Medications and Allergies Atorvastatin [Lipitor] 10 mg PO HS 06/19/15 [History] Melatonin [Melatin] 3 mg PO HS 06/19/15 [History] Sertraline [Zoloft] 200 mg PO DAILY 06/19/15 [History] Aspirin Enteric Coated [Aspirin EC] 325 mg PO DAILY #21 tablet. 02/19/17 [Rx] Baclofen 20 mg PO BID 02/20/17 [History] Pregabalin [Lyrica] 150 mg PO BID 02/20/17 [History] Acetaminophen [Tylenol] 500 mg PO Q6H PRN 10/30/17 [History] Amlodipine Besylate 10 mg PO DAILY 10/30/17 [History] Bisacodyl [Dulcolax] 10 mg PO BID PRN 10/30/17 [History] Buprenorphine [Butrans] 15 mcg TD QWEEK 10/30/17 [History] Cholecalciferol (D-3) [Vitamin D] 1,000 unit PO DAILY 10/30/17 [History] Cyanocobalamin (Vitamin B-12) [Vitamin B12] 1,000 mcg PO BID 10/30/17 [History] Diclofenac Sodium [Voltaren] 2 gm TP QID 10/30/17 [History] Insulin Glargine [Lantus] 20 unit SQ BID 10/30/17 [History] Lidocaine Patch [Lidoderm 5% patch] 1 each TP DAILY 10/30/17 [History] Lidocaine [Anecream] 1 appl RC Q4H PRN 10/30/17 [History] OxyCODONE Immed Rel [Roxicodone 5 MG] 5 mg PO BID PRN 10/30/17 [History] Tamsulosin [Flomax] 0.4 mg PO DAILY 10/30/17 [History] Amoxicillin/Clavulanate [Augmentin] 875 mg PO BIDWM #10 tablet 11/03/17 [Rx] Insulin LISPRO [HumaLOG] 0 units SQ HS vial 11/03/17 [Rx] Insulin LISPRO [HumaLOG] 0 units SQ TIDAC vial 11/03/17 [Rx] amLODIPine [Norvasc] 10 mg PO DAILY tablet 11/03/17 [Rx] Furosemide [Lasix] 40 mg PO BID 11/14/18 [History] Insulin Glargine [Lantus] 30 unit IJ BID 11/14/18 [History] Insulin Regular, Human [Novolin R] 12 unit IJ TID 11/14/18 [History] Ipratropium/Albuterol Neb [Duoneb] 3 ml IH Q6HR 11/14/18 [History] Allergy/AdvReac Type Severity Reaction Status Date / Time adhesive tape Allergy Hives Verified 02/20/17 14:17 All Systems: The remainder of the systems were reviewed and are negative - Constitutional Constitutional ROS IM: chills (no), fever(s) (no), headache(s) (no) - Nose, Mouth, Throat Nose, mouth and throat: abnormal hearing (no), disequilibrium (yes), dizziness (yes), epistaxis (no ) - Cardiovascular Cardiovascular ROS IM: chest pain (yes), diaphoresis (no), dyspnea (yes), edema (no), leg edema (yes), leg ulcers (no ) - Respiratory Respiratory IM: dyspnea (yes), hemoptysis (no), dyspnea on exertion (yes), wheezing (no) - Gastrointestinal Gastrointestinal: abdominal pain (no), change in bowel habits (no), change in stool character (no) - Genitourinary Genitourinary ROS: difficulty urinating (no), difficulty voiding (no) - Musculoskeletal Musculoskeletal ROS IM: abnormal gait (yes), back pain (ys), other (tremors, right more than left) - Neurological Neurological ROS: abnormal gait (yes), confusion (yes), lack of coordination (yes), tremor(s) Physical Examination - Vital Signs Vital Signs: Initial Vital Signs Temp Pulse Resp BP Pulse Ox 98.3 F 80 16 173/74 99 11/14/18 21:09 11/14/18 21:09 11/14/18 21:09 11/14/18 21:09 11/14/18 21:09 - Constitutional General appearance: chronically ill - Neurologic Sensorimotor examination: other (STocking pattern of sensory loss, including pinprick and vibration senses) Detailed motor examination: grossly full strength in all extremities (postural tremors right more than left, positive for asterixes bilaterally No muslce rigidity) Detailed sensory examination: other (Stocking pattern of sensory loss includig pinprick and vibration sensess) Posture: other (None) Reflexes: Biceps: 0, Triceps: 0, Brachioradialis: 0, Patella: 0, Achilles: 0 Mental Status Examination: awake, alert, oriented to person, oriented to place, oriented to time, follows commands appropriately, answers questions machelle ropriately, no agnosia, no aphasia, no aproxia Cranial nerve examination: PERRL, EOMI, visual evans intact, corneal reflexes brisk symmetrically, sensory to face intact, mastication intact, no facial asymmetry is present, no dysarthria, hearing is intact symmetrically, soft palate elevates bilaterally upon phonation, gag reflex intact, flexes SCM and trapezius muscles symmetrically with full power, tongue protrudes midline, no atrophy or facial fasiculations present Results - Laboratory Findings CBC and BMP: 11/14/18 23:51 11/15/18 08:38 Abnormal lab findings: Abnormal lab results RBC 3.98 M/mcL (4.19-5.50) L 11/14/18 23:51 Hgb 12.0 g/dL (12.9-16.9) L 11/14/18 23:51 Hct 36.2 % (37.5-50.1) L 11/14/18 23:51 D-Dimer 1263 ng/mLFEU (0-500) H 11/14/18 23:51 Heparin Anti-Xa, Unfract 0.02 IU/mL (0.30-0.70) L 04/24/19 23:51 Potassium 3.4 mEq/L (3.5-5.1) L 11/15/18 08:38 BUN 54 mg/dL (8-23) H 11/15/18 08:38 Creatinine 2.14 mg/dL (0.70-1.30) H 11/15/18 08:38 Est GFR ( Amer) 38 (> 60) L 11/15/18 08:38 Est GFR (Non-Af Amer) 31 (> 60) L 11/15/18 08:38 Glucose 255 mg/dL (70-105) H 11/15/18 08:38 POC Glucose 243 mg/dL (70-99) H 11/14/18 21:16 Calculated Osmolality 319 (280-300) H 11/15/18 08:38 Calcium 8.4 mg/dL (8.6-10.3) L 11/15/18 08:38 Troponin I 0.04 ng/mL (< 0.04) H* 11/15/18 06:01 Urine Opiates Screen Positive ng/mL (Kikoob=[id number]) H 11/15/18 06:15 Consult Discharge Plan - Plan [facility] Care Provider[facility] -
[2018-11-15] MEDS: Aspirin Enteric Coated 325 MG Tablet PO SCH (13:18)
--- NOTE | 2018-11-15 13:32 | Cardiology Consult Note ---
Date of Encounter: 11/15/18 Time of Encounter: 13:32 Assessment and Plan (1) Chest pain Current Visit: Yes Status: Acute Intermittent, exertional chest pain for past 3 weeks Risk factors include family history, HtN, HLD, DM EKG showed NSR, intraventricular conduction delay, non specific ST changes. CXR showed cardiomegaly without parenchymal consolidation or pleural effusion, chronic changes related to COPD Last echo 10/31/17 LVEF 60%. Mild left ventricular diastolic dysfunction. RV is dilated. Function is normal. Mild mitral regurgitation. No pulmonary hypertension. Mild troponin elevation, 0.05, 0.04 Ddimer elevated to 1263 with prior history of PE in 2009, denies being on anticoagulation. Due to renal function will have to do V/Q scan. V/Q scan showed very low probability for pulmonary embolus. Ideally patient would go for pharmacologic stress test, however this will have to be delayed due to just having VQ scan done to evaluate for PE in setting of elevated ddimer and history of PE. Stress test unable to be performed for 48-60 hours after V/Q scan. Continue aspirin, cardiac monitoring, control blood pressure. Repeat echo pending May need stress test as outpatient depending on hospital course. Qualifiers: Chest pain type: unspecified Qualified Code(s): R07.9 - Chest pain, unspecified (2) Tremor Current Visit: Yes Status: Acute Patient complains of tremor in bilateral upper extremities CT head showed no acute intracranial abnormality Neurology team assessment includes postural tremor with component of asterixis complicated by medical encephalopathy secondary to respiratory failure and renal function Management per primary (3) Diastolic CHF Current Visit: No Status: Acute History of preserved ejection fraction heart failure Last echo 10/31/17 LVEF 60%. Mild left ventricular diastolic dysfunction. RV is dilated. Function is normal. Mild mitral regurgitation. No pulmonary hypertension. Repeat echo pending Continue lasix Strict I&O Qualifiers: Heart failure chronicity: acute Qualified Code(s): I50.31 - Acute diastolic (congestive) heart failure (4) CKD (chronic kidney disease), stage III Current Visit: Yes Status: Chronic History of CKD stage 3 Continue to monitor renal function Avoid nephrotoxic agents and renally dose medications (5) Diabetes mellitus Current Visit: Yes Status: Chronic History of type 2 DM with insulin dependence Sliding scale insulin Qualifiers: Diabetes mellitus type: type 2 Diabetes mellitus prison insulin use: unspecified prison insulin use status Diabetes mellitus complication status: with kidney complications Diabetes mellitus complication detail: with chronic kidney disease Chronic kidney disease stage: stage 3 (moderate) Qualified Code(s): E11.22 - Type 2 diabetes mellitus with diabetic chronic kidne y disease; N18.3 - Chronic kidney disease, stage 3 (moderate) (6) Hypertension Current Visit: Yes Status: Chronic Patient unsure of medications- last visit in [facility] was 1 year ago and he was on amlodipine at that point Will start amlodipine 5 mg Continue to monitor Qualifiers: Hypertension type: essential hypertension Qualified Code(s): I10 - Essential (primary) hypertension (7) Hyperlipidemia Current Visit: Yes Status: Chronic Atorvastatin Qualifiers: Hyperlipidemia type: unspecified Qualified Code(s): E78.5 - Hyperlipidemia, unspecified (8) DVT prophylaxis Current Visit: Yes Status: Acute Heparin drip Discussion w patient/family: The assessment and plan as outlined above was discussed with the patient and/or family members who expressed understanding and agreement. All questions were answered. Thank you for involving us in the care of your patient. Please call with any questions. History of Present Illness Consult date: 11/15/18 Consult reason: Chest pain Chief complaint: Chest pain History of present illness: Mr. Severino is a 63 year old male who presented from [place] with complaint of chest pain and tremors. PMH CHF, HTN, DM on insulin, TBI in 2009, PE in 2009, arthritis, chronic pain and opiod dependence. His son on 11/04/18 several weeks after surgery for colon cancer and the patient is very emotional during interview. He states that he has had intermittent chest pain for the past 3 weeks, he states it is left sided, 4/10 pressure sensation without radiation that lasts several minutes. It is worsened by exertion and resolves at rest. He states his father had 7 myocardial infarctions before passing away at 60 years old. He also admits to some baseline shortness of breath, mild pleuritic pain and LE edema. He states his tremor has been present about 1 week. He also admits to 3 falls from standing recently, he states that he tripped over objects and stumbled down, he denies chest pain, seizure, syncope, lightheadedness associated with falls. When he at presented to CT he was found to have NSR on EKG, and mild elevated troponin at 0.05 which has decreased to 0.04. While on EMS ride from [place] to [place], he became hypoxic to the 70's, had pinpoint pupils and respiratory rate of 4 which resolved after narcan dose. He was also found to have elevated D dimer at 1263. Past Med Surg Social Fam HX - Past Medical History Medical history: CHF, DVT, diabetes, hypertension, pulmonary embolus, renal disease, other Additional medical history: TBI Psychiatric history: anxiety, depression - Past Surgical History Surgical History: appendectomy, knee replacement, orthopedic, other Additional surgical history: Total Left knee replacement. Umberto filter - Social History Smoking Status: Former smoker Smokeless Tobacco Status: No Alcohol use: none Drug use: none - Family History Father Adopted: No Living Status: Hx Family Cardiac Disorders: Yes (Patients father from an [place]. He states that it was his 7th VT.) Hx Family Respiratory Disorders: No Hx Family Cancer: No Hx Family GI Disorders: No Hx Family Endocrine Disorder: No Hx Family Neuromuscular Disorders: No Hx Family Neurologic Disorders: No Hx Family HEENT Disorders: No Hx Family Autoimmune Disorders: No Medications and Allergies Atorvastatin [Lipitor] 10 mg PO HS 06/19/15 [History] Melatonin [Melatin] 3 mg PO HS 06/19/15 [History] Sertraline [Zoloft] 200 mg PO DAILY 06/19/15 [History] Aspirin Enteric Coated [Aspirin EC] 325 mg PO DAILY #21 tablet. 02/19/17 [Rx] Baclofen 20 mg PO BID 02/20/17 [History] Pregabalin [Lyrica] 150 mg PO BID 02/20/17 [History] Acetaminophen [Tylenol] 500 mg PO Q6H PRN 10/30/17 [History] Amlodipine Besylate 10 mg PO DAILY 10/30/17 [History] Bisacodyl [Dulcolax] 10 mg PO BID PRN 10/30/17 [History] Buprenorphine [Butrans] 15 mcg TD QWEEK 10/30/17 [History] Cholecalciferol (D-3) [Vitamin D] 1,000 unit PO DAILY 10/30/17 [History] Cyanocobalamin (Vitamin B-12) [Vitamin B12] 1,000 mcg PO BID 10/30/17 [History] Diclofenac Sodium [Voltaren] 2 gm TP QID 10/30/17 [History] Insulin Glargine [Lantus] 20 unit SQ BID 10/30/17 [History] Lidocaine Patch [Lidoderm 5% patch] 1 each TP DAILY 10/30/17 [History] Lidocaine [Anecream] 1 appl RC Q4H PRN 10/30/17 [History] OxyCODONE Immed Rel [Roxicodone 5 MG] 5 mg PO BID PRN 10/30/17 [History] Tamsulosin [Flomax] 0.4 mg PO DAILY 10/30/17 [History] Amoxicillin/Clavulanate [Augmentin] 875 mg PO BIDWM #10 tablet 11/03/17 [Rx] Insulin LISPRO [HumaLOG] 0 units SQ HS vial 11/03/17 [Rx] Insulin LISPRO [HumaLOG] 0 units SQ TIDAC vial 11/03/17 [Rx] amLODIPine [Norvasc] 10 mg PO DAILY tablet 11/03/17 [Rx] Furosemide [Lasix] 40 mg PO BID 11/14/18 [History] Insulin Glargine [Lantus] 30 unit IJ BID 11/14/18 [History] Insulin Regular, Human [Novolin R] 12 unit IJ TID 11/14/18 [History] Ipratropium/Albuterol Neb [Duoneb] 3 ml IH Q6HR 11/14/18 [History] Allergy/AdvReac Type Severity Reaction Status Date / Time adhesive tape Allergy Hives Verified 02/20/17 14:17 All Systems Review: The remainder of the systems were reviewed and are negative - Constitutional Constitutional: frequent falls, no chills, no fever(s), no weakness - EENT Eyes: no blurred vision Nose, mouth and throat: no dysphagia - Cardiovascular Cardiovascular: chest pain at rest, chest pain with exertion, dyspnea on exertion, leg edema, no diaphoresis, no radiating jaw, neck or arm pain, no lightheadedness, no orthopnea, no palpitations, no paroxysmal nocturnal dyspnea, no syncope - Respiratory Respiratory: dyspnea - Gastrointestinal Gastrointestinal: no abdominal pain, no constipation, no diarrhea, no hematochezia, no melena - Genitourinary Genitourinary: no dysuria, no hematuria - Musculoskeletal Musculoskeletal: back pain - Integumentary Integumentary: no erythema - Neurological Neurological: other (tremor), no dizziness, no focal weakness - Psychiatric Psychiatric: depression, no anxiety - Hematological/Lymphatic Hematologic/Lymphatic: no easy bleeding, no easy bruising Physical Examination Vital Signs, Last 4 Hours Resp Pulse Ox 11/15/18 10:27 16 97 General: Conversant, Other (Emotional and tearful) HEENT: Atraumatic, Normocephaly, Other (Mucus membranes dry) Cardiac: Reg Rate and Rhythm, Normal S1 and S2, No Murmur Lungs: Other (Mild rales bilaterally) Neuro: Alert and responsive, Other (upper extremity tremors, worse on right) Abdomen: Soft, Non-Tender Skin: No rashes noted on visualized skin Musculoskeletal: No Chest Wall Tenderness Extremities: No Clubbing, No Cyanosis, Normal Pulses, Other (2+ edema) Results 11/14/18 23:51 11/15/18 08:38 Lab Results 11/14/18 11/14/18 11/14/18 21:34 23:51 23:51 WBC 9.2 Hgb 12.0 L Hct 36.2 L Plt Count 179 INR 1.0 APTT 30.5 D-Dimer 1263 H Sodium Potassium Chloride Carbon Dioxide BUN Creatinine Glucose Calcium Troponin I 0.05 H* B-Natriuretic Peptide 11/14/18 11/14/18 11/15/18 23:51 23:51 06:01 WBC Hgb Hct Plt Count INR APTT D-Dimer Sodium 142 Potassium 3.2 L Chloride 106 Carbon Dioxide 28 BUN 55 H Creatinine 2.29 H Glucose 198 H Calcium 8.8 Troponin I 0.04 H* B-Natriuretic Peptide 90 11/15/18 08:38 WBC Hgb Hct Plt Count INR APTT D-Dimer Sodium 143 Potassium 3.4 L Chloride 107 Carbon Dioxide 27 BUN 54 H Creatinine 2.14 H Glucose 255 H Calcium 8.4 L Troponin I B-Natriuretic Peptide Consult Discharge Plan - Plan [facility]errals: [facility] [Primary Care Provider] -
[2018-11-15] MEDS: amLODIPine 5 MG TABLET PO SCH (14:18)
[2018-11-15] MEDS: Furosemide 40 MG TABLET PO SCH (17:10)
--- NOTE | 2018-11-15 19:27 | Internal Med Progress Note ---
Hospitalist Progress Note - Encounter Date of Encounter: 11/15/18 Time of Encounter: 11:00 - Subjective Interval History: Patient seen and examined at bedside - cont to have bilat hand tremors denies any CP- elevated d dimer hx of PE will obtain VQ scan dt hx of CKD - Exam Vitals: Temp Pulse Resp BP Pulse Ox 98.1 F 74 16 121/72 93 11/15/18 16:05 11/15/18 16:05 11/15/18 16:05 11/15/18 16:05 11/15/18 16:05 Exam: General: Obese white man lying in bed in NAD Skin: Dry, warm HEENT: Moist mucous membranes. No conjunctivae pallor. Neck: No lymphadenopathy. No JVD. No carotid bruits. No palpable thyroid. Chest: Normal thoracic expansion. Normal breath sounds. Clear to auscultation. Heart: Normal S1 & S2; rhythmic. No rubs or murmurs. Abdomen: Non-distended, soft and non-tender to palpation. No peritoneal reaction. Extremities: No calf tenderness. Normal distal pulses. Neurological: Awake, alert and oriented to person, place and time. Involunatry dyskinetic movements of both arms with a notable tremor at rest. Psych: Affect flat. - Assessment and Plan (1) Chest pain Current Visit: Yes Status: Acute Assessment and Plan: Currently no CP He did have elevated D dimer - will get VQ scan dt hx of PE - VQ low probably -cardiology consulted - unable to undergo stress dt recent VQ scan may need as outpatient troponins-0.5,0.4,0.4 cont cardiac montoring nitro as needed (2) DVT prophylaxis Current Visit: Yes Status: Acute Assessment and Plan: heparin subque (3) Tremor Current Visit: Yes Status: Acute Assessment and Plan: seen by neurology- per neurology - asterixis secondary to resp failure and also worsening kidney function- patient did have some hypoxia and does have CKD however appears to be around baseline- May have baseline component of benign essential tremors that likely in his case complicated by anxiety and medication side effects-no additional treatment - once medical condition stabilizes follow up with neurology at [place] or here - Cont medical/ supportive care (4) CKD (chronic kidney disease), stage III Current Visit: Yes Status: Chronic Assessment and Plan: 1 Appears to be at baseline - will monitor closely cont lasix monitor I/O daily weights avoid nephrotoxins (5) Diabetes mellitus Current Visit: Yes Status: Chronic Assessment and Plan: accucheck ac/hs SSI (6) Hypertension Current Visit: Yes Status: Chronic Assessment and Plan: cont home meds - Time Spent with Patient Total time spent is greater than 50% in coordination of care (as documented) at patient's floor/unit and/or counseling patient: Internal Medicine: Result - Labs CBC & Chem 7: 11/14/18 23:51 11/15/18 08:38 Labs: Short CBC 11/14/18 Range/Units 23:51 WBC 9.2 (4.3-11.1) K/mcL Hgb 12.0 L (12.9-16.9) g/dL Hct 36.2 L (37.5-50.1) % Plt Count 179 (140-400) K/mcL Neutrophils # 6.4 (1.6-8.9) K/mcL BMP 11/14/18 11/15/18 23:51 08:38 Sodium 142 143 Potassium 3.2 L 3.4 L Chloride 106 107 Carbon Dioxide 28 27 BUN 55 H 54 H Creatinine 2.29 H 2.14 H Glucose 198 H 255 H Calcium 8.8 8.4 L Cardiac Enzymes 11/14/18 11/15/18 11/15/18 Range/Units 21:34 06:01 13:05 Troponin I 0.05 H* 0.04 H* 0.04 H* (< 0.04) ng/mL - ABG Interpretation ABG results: PT/INR, D-dimer PT 10.9 Seconds (9.4-12.1) 11/14/18 23:51 D-Dimer 1263 ng/mLFEU (0-500) H 11/14/18 23:51 - Impressions Impressions Chest X-Ray 11/14/18 21:19 IMPRESSION: Cardiomegaly without parenchymal consolidation or pleural effusion. Chronic change related to COPD. D/ / Joce Parker MD / Joce Parker MD Interpreting Provider: Joce Parker MD Head CT 11/14/18 21:19 IMPRESSION: No acute intracranial abnormality. D/ / Samuel Arrieta MD / Samuel Arrieta MD Interpreting Provider: Samuel Arrieta MD Echocardiogram 11/15/18 00:54 Impressions: Technically sub-optimal due to body habitus. LVEF 65%. Mildly dilated left ventricle. Normal LV wall thickness and function. Atypical septal motion consistent with bundle branch block. Right ventricle was not well visualized. Grossly, it is normal in function. Mild left ventricular diastolic dysfunction. Unable to estimate RVSP due to lack of TR jet. Left Ventricular Wall Motion: Rest Echo Findings All wall segments showed normal motion. Findings: Study Quality * Technically sub-optimal due to body habitus. ECG Findings * Sinus rhythm with BBB. Left Ventricle * LVEF 65%. * Mildly dilated left ventricle. * Normal LV wall thickness and function. * Atypical septal motion consistent with bundle branch block. * Mild left ventricular diastolic dysfunction. Right Ventricle * Right ventricle was not well visualized. Grossly, it is normal in function. Left Atrium * Moderately dilated left atrium. Right Atrium * Mildly dilated right atrium. Aortic Valve * Aortic valve not well visualized. * No aortic regurgitation. * No aortic stenosis. Mitral Valve * Normal mitral valve structure and function. * Trace mitral regurgitation. * No mitral stenosis. Tricuspid Valve * Normal tricuspid valve structure and function. * No tricuspid regurgitation. * Unable to estimate RVSP due to lack of TR jet. Pulmonic Valve * Pulmonic valve is not well visualized. * No pulmonic regurgitation. Aorta * Normally sized aortic root. Pericardium * The pericardium appears normal. IVC * Normal IVC dimensions and inspiratory collapse. Pulmonary Artery * Normal visualized portions of the main pulmonary artery. Pulmonary Perfusion Imaging 11/15/18 11:59 IMPRESSION: Very low probability for pulmonary embolus. D/ / Joce Navarro MD / Joce Navarro MD Interpreting Provider: Joce Navarro MD Consult Discharge Plan - Plan [facility]errals: [facility] [Primary Care Provider] - ___ (1) Chest pain Qualifiers: Chest pain type: unspecified Qualified Code(s): R07.9 - Chest pain, unspecified (5) Diabetes mellitus Qualifiers: Diabetes mellitus type: type 2 Diabetes mellitus intermediate designer insulin use: unspecified intermediate designer insulin use status Diabetes mellitus complication status: with kidney complications Diabetes mellitus complication detail: with chronic kidney disease Chronic kidney disease stage: stage 3 (moderate) Qualified Code(s): E11.22 - Type 2 diabetes mellitus with diabetic chronic kidney disease; N18.3 - Chronic kidney disease, stage 3 (moderate) (6) Hypertension Qualifiers: Hypertension type: essential hypertension Qualified Code(s): I10 - Essential (primary) hypertension
[2018-11-15] MEDS ORDERED: Insulin LISPRO 300 UNITS/3 ML VIAL SQ SCH (21:00)
[2018-11-15] MEDS: Melatonin 3 MG TABLET PO SCH (21:40)
[2018-11-15] MEDS: Nitroglycerin 0.4 MG TAB.SUBL SL SCH ×2 (21:42→23:13)
--- NOTE | 2018-11-15 23:29 | Electrocardiograph Report ---
[address] [address] Test Date: 2018-11-14 Pat Name: Mumtaz Severino Department: [id number] Room: 3B Gender: M Candy Puller: : 1955 Requested By: Blake Rueda Order Number: [id number] Reading MD: Irwin Lorenzo Measurements Intervals [place] Rate: 71 P: 40 OK: 185 QRS: -23 QRSD: 118 T: 37 QT: 420 QTc: 457 Interpretive Statements Sinus rhythm Nonspecific intraventricular conduction delay Electronically Signed On 11-15-2018 23:28:26 EDT by Irwin Lorenzo
[2018-11-16] MEDS: Nitroglycerin 0.4 MG TAB.SUBL SL SCH (02:29)
[2018-11-16] MEDS: *HR* OxyCODONE Immed Rel 5 MG TABLET PO PRN ×3 (02:57→18:28)
[2018-11-16] MEDS: Ipratropium/Albuterol Neb 3 ML IH SCH ×4 (03:31→21:35)
[2018-11-16 05:32] LABS: Basophils % 0.6 %; Eosinophils # 0.2 K/mcL (0.0-0.6); Eosinophils % 2.3 %; Hematocrit 33.9 % (37.5-50.1); Hemoglobin 11.2 g/dL (12.9-16.9); Immature Granulocytes % 0.3 % (0-4); Lymphocytes # 1.4 K/mcL (0.6-4.6); Mean Corpuscular Hemoglobin 30.3 pg (28.0-33.3); Mean Corpuscular Volume 91.6 fL (83.0-100.0); Mean Platelet Volume 11.7 fL (9.4-12.4); Monocytes # 0.6 K/mcL (0.0-1.3); Neutrophils # 4.3 K/mcL (1.6-8.9); Platelet Count 158 K/mcL (140-400); Red Cell Distribution Width 14.4 % (11.5-14.5); Segmented Neutrophils % 65.8 %
[2018-11-16] MEDS: *HR* Heparin 5,000 UNIT/ML VIAL SQ SCH ×2 (05:35→18:20)
[2018-11-16 05:51] LABS: Calcium 8.6 mg/dL (8.6-10.3); Potassium 3.1 mEq/L (3.5-5.1)
--- NOTE | 2018-11-16 07:29 | Neurology Progress Note ---
Date of Encounter: 11/16/18 Time of Encounter: 07:26 Assessment and Plan (1) Tremor Current Visit: Yes Status: Acute As mentioned previously the worsening tremors have component of significant bilateral asterixis which is improved after medical treatment. I saw no evidence of Parkinson disease. there may be a component of essential tremors that can be aggravated by medical conditions and anxiety. Would not recommend pharmacological treatment at this time. Please continue medical and supportive care. he may follow up with neurology at [place] or here for his tremors as an outpatient after medical conditions stabilize. Will sign off at this time. Please call if any questions Subjective Principal diagnosis: Tremor Interval history: Patient seen and examined.He is sleeping comfortably and easily aroused. Says that he breaths lot better today and tremors are better too. Reports back pain but seems better controlled. Feels better also after eating Objective - Constitutional Vitals: Temp Pulse Resp BP Pulse Ox 98 F 72 17 143/61 91 11/16/18 03:47 11/16/18 03:47 11/16/18 03:47 11/16/18 03:47 11/16/18 03:47 - Neurological Exam Sensorimotor examination: Present: other (STocking pattern of sensory loss, including pinprick and vibration senses) Motor Examination: Present: grossly full strength in all extremities (postural t remors improved from yesterday, positive for asterixes bilaterally No muslce rigidity) Motor examination - right side: 4/5: hip flexors, tibialis Anterior, quadriceps, toe extension (EHL), plantarflexion, 5/5: deltoids, biceps, triceps, wrist flexion, wrist extension, 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 Motor examination - left side: 4/5: hip flexors, quadriceps, tibialis Anterior, toe extension (EHL), plantarflexion, 5/5: deltoids, biceps, triceps, wrist flexion, wrist extension, 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 Sensation intact: Present: other (Stocking pattern of sensory loss includig pinprick and vibration sensess) Posture: Present: other (None) Reflex and gait examination: other (Gait not assessed) Reflexes: Biceps: 0, Triceps: 0, Brachioradialis: 0, Patella: 0, Achilles: 0 Mental Status Examination: Present: awake, alert, oriented to person, oriented to place, oriented to time, follows commands appropriately, answers questions appropriately, no agnosia, no aphasia, no aproxia Cranial nerve examination: Present: PERRL, EOMI, visual evans intact, corneal reflexes brisk symmetrically, sensory to face intact, mastication intact, no facial asymmetry is present, no dysarthria, hearing is intact symmetrically, soft palate elevates bilaterally upon phonation, gag reflex intact, flexes SCM and trapezius muscles symmetrically with full power, tongue protrudes midline, no atrophy or facial fasiculations present Results - Laboratory Findings CBC and BMP: 11/16/18 04:49 11/16/18 04:49 Abnormal lab findings: Abnormal lab results RBC 3.70 M/mcL (4.19-5.50) L 11/16/18 04:49 Hgb 11.2 g/dL (12.9-16.9) L 11/16/18 04:49 Hct 33.9 % (37.5-50.1) L 11/16/18 04:49 D-Dimer 1263 ng/mLFEU (0-500) H 11/14/18 23:51 Heparin Anti-Xa, Unfract 0.02 IU/mL (0.30-0.70) L 11/14/18 23:51 Potassium 3.1 mEq/L (3.5-5.1) L 11/16/18 04:49 BUN 46 mg/dL (8-23) H 11/16/18 04:49 Creatinine 1.94 mg/dL (0.70-1.30) H 11/16/18 04:49 Est GFR ( Amer) 43 (> 60) L 11/16/18 04:49 Est GFR (Non-Af Amer) 35 (> 60) L 11/16/18 04:49 Glucose 276 mg/dL (70-105) H 11/16/18 04:49 POC Glucose 361 mg/dL (70-99) H 11/16/18 00:07 Calculated Osmolality 316 (280-300) H 11/16/18 04:49 Troponin I 0.04 ng/mL (< 0.04) H* 11/15/18 13:05 Urine Opiates Screen Positive ng/mL ([id number]=166) H 11/15/18 06:15 Consult Discharge Plan - Plan [facility]errals: [facility] [Primary Care Provider] -
[2018-11-16] MEDS ORDERED: Insulin LISPRO 300 UNITS/3 ML VIAL SQ SCH (07:30)
[2018-11-16] MEDS: Aspirin Enteric Coated 325 MG Tablet PO SCH (08:36)
[2018-11-16] MEDS: amLODIPine 5 MG TABLET PO SCH (08:36)
[2018-11-16] MEDS: Furosemide 40 MG TABLET PO SCH (08:36)
[2018-11-16] MEDS ORDERED: Potassium Chloride 20 MEQ, Lidocaine 1% 2 ML in D5% in Water 250 ML IVPB ONE (09:44)
--- NOTE | 2018-11-16 09:49 | Internal Med Progress Note ---
Hospitalist Progress Note - Encounter Date of Encounter: 11/16/18 Time of Encounter: 09:48 - Subjective Interval History: Was seen and examined at bedside currently denies any chest pain or shortness of breath he does complain of back pain and is requesting pain medication. His tremors have greatly improved almost completely resolved Discussed treating plan with the patient including physical therapy patient verbalized understanding - Exam Vitals: Temp Pulse Resp BP Pulse Ox 98.0 F 63 18 161/71 95 11/16/18 08:17 11/16/18 08:17 11/16/18 08:17 11/16/18 08:17 11/16/18 08:17 Exam: General: Obese white man lying in bed in NAD Skin: Dry, warm HEENT: Moist mucous membranes. No conjunctivae pallor. Neck: No lymphadenopathy. No JVD. No carotid bruits. No palpable thyroid. Chest: Normal thoracic expansion. Normal breath sounds. Clear to auscultation. Heart: Normal S1 & S2; rhythmic. No rubs or murmurs. Abdomen: Non-distended, soft and non-tender to palpation. No peritoneal reaction. Extremities: No calf tenderness. Normal distal pulses. Neurological: Awake, alert and oriented to person, place and time. NO tremors noted at this time Psych: Affect flat. - Assessment and Plan (1) Chest pain Current Visit: Yes Status: Acute Assessment and Plan: Currently no CP He did have elevated D dimer - VQ scan low probably -cardiology consulted - unable to undergo stress dt recent VQ scan may need as outpatient troponins-0.5,0.4,0.4 cont cardiac montoring nitro as needed (2) DVT prophylaxis Current Visit: Yes Status: Acute Assessment and Plan: heparin subque (3) Tremor Current Visit: Yes Status: Acute Assessment and Plan: seen by neurology- per neurology - asterixis secondary to resp failure and also worsening kidney function- tremors almost resolved- very faint tremor- continue medical treatment support patient will need follow-up with neurology as outpatient either with [place] or [facility] (4) CKD (chronic kidney disease), stage III Current Visit: Yes Status: Chronic Assessment and Plan: 1 did have an elevation on presentation -2.29 now 1.94 which is more baseline cont lasix monitor I/O daily weights avoid nephrotoxins (5) Diabetes mellitus Current Visit: Yes Status: Chronic Assessment and Plan: accucheck ac/hs SSI -increase insulin to medium coverage (6) Hypertension Current Visit: Yes Status: Chronic Assessment and Plan: cont home meds (7) Falls frequently Current Visit: No Status: Acute Assessment and Plan: Patient expresses anxiety and fear of possibly falling at home he does use a walker however he does have neuropathy-as well as chronic back pain he states he recently it has been more difficult for him to ambulate and that he has had falls in the past. We will consult PT/OT He may need in patient rehabilitation consult psychosocial rehabilitation counselor as needed - Time Spent with Patient Total time spent is greater than 50% in coordination of care (as documented) at patient's floor/unit and/or counseling patient: Internal Medicine: Result - Labs CBC & Chem 7: 11/16/18 04:49 11/16/18 04:49 Labs: Short CBC 11/16/18 Range/Units 04:49 WBC 6.6 (4.3-11.1) K/mcL Hgb 11.2 L (12.9-16.9) g/dL Hct 33.9 L (37.5-50.1) % Plt Count 158 (140-400) K/mcL Neutrophils # 4.3 (1.6-8.9) K/mcL BMP 11/16/18 04:49 Sodium 142 Potassium 3.1 L Chloride 107 Carbon Dioxide 28 BUN 46 H Creatinine 1.94 H Glucose 276 H Calcium 8.6 Cardiac Enzymes 11/15/18 Range/Units 13:05 Troponin I 0.04 H* (< 0.04) ng/mL - ABG Interpretation ABG results: PT/INR, D-dimer PT 10.9 Seconds (9.4-12.1) 11/14/18 23:51 D-Dimer 1263 ng/mLFEU (0-500) H 11/14/18 23:51 - Impressions Impressions Echocardiogram 11/15/18 00:54 Impressions: Technically sub-optimal due to body habitus. LVEF 65%. Mildly dilated left ventricle. Normal LV wall thickness and function. Atypical septal motion consistent with bundle branch block. Right ventricle was not well visualized. Grossly, it is normal in function. Mild left ventricular diastolic dysfunction. Unable to estimate RVSP due to lack of TR jet. Left Ventricular Wall Motion: Rest Echo Findings All wall segments showed normal motion. Findings: Study Quality * Technically sub-optimal due to body habitus. ECG Findings * Sinus rhythm with BBB. Left Ventricle * LVEF 65%. * Mildly dilated left ventricle. * Normal LV wall thickness and function. * Atypical septal motion consistent with bundle branch block. * Mild left ventricular diastolic dysfunction. Right Ventricle * Right ventricle was not well visualized. Grossly, it is normal in function. Left Atrium * Moderately dilated left atrium. Right Atrium * Mildly dilated right atrium. Aortic Valve * Aortic valve not well visualized. * No aortic regurgitation. * No aortic stenosis. Mitral Valve * Normal mitral valve structure and function. * Trace mitral regurgitation. * No mitral stenosis. Tricuspid Valve * Normal tricuspid valve structure and function. * No tricuspid regurgitation. * Unable to estimate RVSP due to lack of TR jet. Pulmonic Valve * Pulmonic valve is not well visualized. * No pulmonic regurgitation. Aorta * Normally sized aortic root. Pericardium * The pericardium appears normal. IVC * Normal IVC dimensions and inspiratory collapse. Pulmonary Artery * Normal visualized portions of the main pulmonary artery. Pulmonary Perfusion Imaging 11/15/18 11:59 IMPRESSION: Very low probability for pulmonary embolus. 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
[2018-11-16] MEDS ORDERED: Ipratropium/Albuterol Neb 3 ML IH PRN (10:09)
[2018-11-16] MEDS: Metoprolol XL (24 HR) Succ 25 MG TAB.ER.24H PO SCH (12:01)
[2018-11-16] MEDS: Insulin LISPRO 300 UNITS/3 ML VIAL SQ SCH ×3 (12:20→22:25)
--- NOTE | 2018-11-16 13:09 | Event Note ---
<Park Verdugo L - Last Filed: 11/16/18 13:11> Date of Encounter: 11/16/18 Time of Encounter: 13:07 Patient seen and examined at bedside. He states that his chest pain is decreased however still present. Will start metoprolol xl 25 mg, increase atorvastatin to 20 mg and add imdur 30 mg. V/Q scan negative for PE, will schedule stress test for Monday for further evaluation of chest pain. Cardiology to sign off at this time, please reconsult if needed after stress test. All questions and concerns of patient addressed. Gen.: Vitals noted. No acute distress. AAOx3, resting comfortably in bed. Cardiac: RRR, no murmur, +S1/S2, 2+ bilateral LE edema Pulmonary: clear to auscultation bilaterally. Abdomen: soft, nontender, BS noted, no guarding, no palpable [facility] Neuro: A&Ox3, tremor has improved, no focal deficits, sensation intact, CN2-12 intact <Jozef Jim - Last Filed: 11/16/18 22:46> Date of Encounter: 11/16/18 - Attending Attestation I have personally performed a face to face evaluation on this patient. I have reviewed and agree with the documented findings and care plan as documented by the resident. History and Exam by me shows: For stress test as soon as feasible. We will follow up with results Thanks, Jozef Jim MD [facility]
[2018-11-16] MEDS: Isosorbide MONOnitrate (24 HR) 30 MG TAB.ER.24H PO SCH (14:15)
[2018-11-16] MEDS: Furosemide 20 MG TABLET PO SCH (18:19)
[2018-11-16] MEDS: Baclofen 10 MG TABLET PO SCH (22:21)
[2018-11-16] MEDS: Melatonin 3 MG TABLET PO SCH (22:22)
[2018-11-16] MEDS: Pregabalin 75 MG CAPSULE PO SCH (22:57)
[2018-11-17] MEDS: *HR* OxyCODONE Immed Rel 5 MG TABLET PO PRN ×2 (02:30→16:52)
[2018-11-17] MEDS: Ipratropium/Albuterol Neb 3 ML IH SCH ×4 (03:59→21:50)
[2018-11-17] MEDS: *HR* Heparin 5,000 UNIT/ML VIAL SQ SCH ×2 (07:21→16:52)
[2018-11-17 07:50] LABS: Potassium 3.5 mEq/L (3.5-5.1)
[2018-11-17 08:14] LABS: Basophils # 0.1 K/mcL (0.0-0.2); Basophils % 0.7 %; Eosinophils # 0.3 K/mcL (0.0-0.6); Eosinophils % 3.9 %; Hematocrit 34.4 % (37.5-50.1); Hemoglobin 11.3 g/dL (12.9-16.9); Immature Granulocytes % 0.3 % (0-4); Lymphocytes # 1.4 K/mcL (0.6-4.6); Lymphocytes % 20.6 %; Mean Corpuscular HGB Conc 32.8 g/dL (31.6-35.5); Mean Corpuscular Hemoglobin 30.1 pg (28.0-33.3); Mean Corpuscular Volume 91.5 fL (83.0-100.0); Mean Platelet Volume 11.8 fL (9.4-12.4); Monocytes # 0.7 K/mcL (0.0-1.3); Monocytes % 10.5 %; Neutrophils # 4.4 K/mcL (1.6-8.9); Platelet Count 166 K/mcL (140-400); Red Blood Count 3.76 M/mcL (4.19-5.50); Red Cell Distribution Width 14.4 % (11.5-14.5)
[2018-11-17] MEDS: *HR* HYDROcodone/Acet 5/325 mg TABLET PO PRN ×2 (08:19→20:39)
[2018-11-17] MEDS: Aspirin Enteric Coated 325 MG Tablet PO SCH (08:19)
[2018-11-17] MEDS: Furosemide 40 MG TABLET PO SCH (08:19)
[2018-11-17] MEDS: Baclofen 10 MG TABLET PO SCH ×2 (08:19→20:40)
[2018-11-17] MEDS: Isosorbide MONOnitrate (24 HR) 30 MG TAB.ER.24H PO SCH (08:19)
[2018-11-17] MEDS: Metoprolol XL (24 HR) Succ 25 MG TAB.ER.24H PO SCH (08:20)
[2018-11-17] MEDS: amLODIPine 5 MG TABLET PO SCH (08:20)
[2018-11-17] MEDS: Insulin LISPRO 300 UNITS/3 ML VIAL SQ SCH ×4 (08:20→20:42)
[2018-11-17] MEDS: Pregabalin 75 MG CAPSULE PO SCH ×2 (08:20→20:40)
--- NOTE | 2018-11-17 14:48 | Internal Med Progress Note ---
Hospitalist Progress Note - Encounter Date of Encounter: 11/17/18 Time of Encounter: 14:46 - Subjective Interval History: Patient was seen and examined at bedside he does complain of right flank pain denies any urinary symptoms no fevers no white count. Will obtain urinalysis discuss treatment plan at the patient who verbalized understanding he will und ergo a stress test in the a.m. - Exam Vitals: Temp Pulse Resp BP Pulse Ox 98.3 F 67 16 137/70 90 11/17/18 10:53 11/17/18 10:53 11/17/18 10:56 11/17/18 10:53 11/17/18 10:56 Exam: General: Obese white man lying in bed in NAD Skin: Dry, warm HEENT: Moist mucous membranes. No conjunctivae pallor. Neck: No lymphadenopathy. No JVD. No carotid bruits. No palpable thyroid. Chest: Normal thoracic expansion. Normal breath sounds. Clear to auscultation. Heart: Normal S1 & S2; rhythmic. No rubs or murmurs. Abdomen: Non-distended, soft and non-tender to palpation. No peritoneal reaction. Extremities: No calf tenderness. Normal distal pulses. Neurological: Awake, alert and oriented to person, place and time. NO tremors noted at this time Psych: Affect flat. - Assessment and Plan (1) Chest pain Current Visit: Yes Status: Acute Assessment and Plan: Denies any chest pain at this time He did have elevated D dimer - VQ scan low probably -cardiology consulted - patient will be nothing by mouth after midnight for stress test in the a.m. troponins-0.5,0.4,0.4 cont cardiac montoring nitro as needed (2) DVT prophylaxis Current Visit: Yes Status: Acute Assessment and Plan: heparin subque (3) Tremor Current Visit: Yes Status: Acute Assessment and Plan: seen by neurology- per neurology - asterixis secondary to resp failure and also worsening kidney function- tremors almost resolved- very faint tremor- continue medical treatment support patient will need follow-up with neurology as outpatient either with [place] or [facility] -Currently no tremors noted (4) CKD (chronic kidney disease), stage III Current Visit: Yes Status: Chronic Assessment and Plan: 1 did have an elevation on presentation -2.29 now 1.83 continue to monitor cont lasix monitor I/O daily weights avoid nephrotoxins (5) Diabetes mellitus Current Visit: Yes Status: Chronic Assessment and Plan: accucheck ac/hs SSI -increased insulin to medium coverage-glucose improved continue to monitor (6) Hypertension Current Visit: Yes Status: Chronic Assessment and Plan: cont home meds (7) Falls frequently Current Visit: No Status: Acute Assessment and Plan: Patient expresses anxiety and fear of possibly falling at home he does use a walker however he does have neuropathy-as well as chronic back pain he states he recently it has been more difficult for him to ambulate and that he has had falls in the past. We will consult PT/OT PTOT recommending home health clinical social work therapist consult - Time Spent with Patient Total time spent is greater than 50% in coordination of care (as documented) at patient's floor/unit and/or counseling patient: Internal Medicine: Result - Labs CBC & Chem 7: 11/17/18 05:37 11/17/18 05:37 Labs: Short CBC 11/17/18 Range/Units 05:37 WBC 6.9 (4.3-11.1) K/mcL Hgb 11.3 L (12.9-16.9) g/dL Hct 34.4 L (37.5-50.1) % Plt Count 166 (140-400) K/mcL Neutrophils # 4.4 (1.6-8.9) K/mcL BMP 11/17/18 05:37 Sodium 143 Potassium 3.5 Chloride 105 Carbon Dioxide 27 BUN 37 H Creatinine 1.83 H Glucose 200 H Calcium 9.0 - ABG Interpretation ABG results: PT/INR, D-dimer PT 10.9 Seconds (9.4-12.1) 11/14/18 23:51 1263 ng/mLFEU (0-500) H 11/14/18 23:51 Consult Discharge Plan - Plan [facility]errals: [facility] [Primary Care Provider] - 11/23/18 2:45 pm (1) Chest pain Qualifiers: Chest pain type: unspecified Qualified Code(s): R07.9 - Chest pain, unspecified (5) Diabetes mellitus Qualifiers: Diabetes mellitus type: type 2 Diabetes mellitus 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
[2018-11-17] MEDS: Furosemide 20 MG TABLET PO SCH (16:52)
[2018-11-17 18:28] LABS: Bilirubin,Urine Negative (Negative); Blood,Urine Negative (Negative); Clarity,Urine Clear (Clear); Color,Urine Yellow (Yellow); Glucose,Urine (UA) 250 mg/dL (Normal); Ketones,Urine Negative (Negative); Leukocyte Esterase,Urine Negative (Negative); Nitrite,Urine Negative (Negative); Protein,Urine 30 mg/dL (Neg-Trace); Specific Gravity,Urine 1.016 (1.010-1.025); Urobilinogen,Urine Normal (Normal)
[2018-11-17 18:31] LABS: Bacteria,Urine None Seen per hpf (None-Few); Hyaline Casts,Urine None Seen per lpf (None-Few); RBC,Urine 0-3 per hpf (0-3); Squamous Epithelial Cell,Urine None Seen per lpf (None-Few); WBC,Urine 0-3 per hpf (0-3)
[2018-11-17] MEDS: Melatonin 3 MG TABLET PO SCH (20:40)
[2018-11-18 04:25] LABS: Basophils % 0.7 %; Eosinophils # 0.3 K/mcL (0.0-0.6); Eosinophils % 4.8 %; Hematocrit 35.7 % (37.5-50.1); Hemoglobin 11.8 g/dL (12.9-16.9); Immature Granulocytes % 0.3 % (0-4); Lymphocytes # 1.3 K/mcL (0.6-4.6); Lymphocytes % 22.8 %; Mean Corpuscular HGB Conc 33.1 g/dL (31.6-35.5); Mean Corpuscular Hemoglobin 30.4 pg (28.0-33.3); Mean Platelet Volume 11.8 fL (9.4-12.4); Monocytes # 0.5 K/mcL (0.0-1.3); Monocytes % 8.4 %; Neutrophils # 3.7 K/mcL (1.6-8.9); Platelet Count 170 K/mcL (140-400); Red Blood Count 3.88 M/mcL (4.19-5.50); Red Cell Distribution Width 14.6 % (11.5-14.5)
[2018-11-18 04:39] LABS: Potassium 3.7 mEq/L (3.5-5.1)
[2018-11-18] MEDS: Ipratropium/Albuterol Neb 3 ML IH SCH ×4 (04:47→21:15)
[2018-11-18] MEDS: *HR* Heparin 5,000 UNIT/ML VIAL SQ SCH ×2 (06:27→17:24)
[2018-11-18] MEDS ORDERED: Regadenoson 0.4 MG/5 ML SYRINGE IVP ONE (06:28)
[2018-11-18] MEDS: *HR* HYDROcodone/Acet 5/325 mg TABLET PO PRN ×2 (06:31→17:26)
[2018-11-18] MEDS: Furosemide 40 MG TABLET PO SCH (10:56)
[2018-11-18] MEDS: Baclofen 10 MG TABLET PO SCH ×2 (10:56→20:47)
[2018-11-18] MEDS: Aspirin Enteric Coated 325 MG Tablet PO SCH (10:56)
[2018-11-18] MEDS: Metoprolol XL (24 HR) Succ 25 MG TAB.ER.24H PO SCH (10:57)
[2018-11-18] MEDS: amLODIPine 5 MG TABLET PO SCH (10:57)
[2018-11-18] MEDS: *HR* OxyCODONE Immed Rel 5 MG TABLET PO PRN ×2 (10:57→20:46)
[2018-11-18] MEDS: Isosorbide MONOnitrate (24 HR) 30 MG TAB.ER.24H PO SCH (10:57)
[2018-11-18] MEDS: Pregabalin 75 MG CAPSULE PO SCH ×2 (10:57→20:47)
[2018-11-18] MEDS: Insulin LISPRO 300 UNITS/3 ML VIAL SQ SCH ×4 (10:58→20:35)
--- NOTE | 2018-11-18 16:14 | Internal Med Progress Note ---
Hospitalist Progress Note - Encounter Date of Encounter: 11/18/18 Time of Encounter: 16:09 - Subjective Interval History: Patient seen and examined denies any pain or discomfort completed first half of 2 day stress. - Exam Vitals: Temp Pulse Resp BP Pulse Ox 97.7 F 68 16 156/73 92 11/18/18 12:13 11/18/18 12:13 11/18/18 12:13 11/18/18 12:13 11/18/18 12:13 Exam: General: Obese white man lying in bed in NAD Skin: Dry, warm HEENT: Moist mucous membranes. No conjunctivae pallor. Neck: No lymphadenopathy. No JVD. No carotid bruits. No palpable thyroid. Chest: Normal thoracic expansion. Normal breath sounds. Clear to auscultation. Heart: Normal S1 & S2; rhythmic. No rubs or murmurs. Abdomen: Non-distended, soft and non-tender to palpation. No peritoneal reaction. Extremities: No calf tenderness. Normal distal pulses. Neurological: Awake, alert and oriented to person, place and time. NO tremors noted at this time Psych: Affect flat. - Assessment and Plan (1) Chest pain Current Visit: Yes Status: Acute Assessment and Plan: Denies any chest pain at this time He did have elevated D dimer - VQ scan low probably -cardiology consulted - patient will be nothing by mouth after midnight for 2nd half stress test in the a.m. troponins-0.5,0.4,0.4 cont cardiac montoring nitro as needed (2) DVT prophylaxis Current Visit: Yes Status: Acute Assessment and Plan: heparin subque (3) Tremor Current Visit: Yes Status: Acute Assessment and Plan: seen by neurology- per neurology - asterixis secondary to resp failure and also worsening kidney function- tremors almost resolved- very faint tremor- continue medical treatment support patient will need follow-up with neurology as outpatient either with [place] or [place] -Currently no tremors noted (4) CKD (chronic kidney disease), stage III Current Visit: Yes Status: Chronic Assessment and Plan: 1 did have an elevation on presentation -2.29 now 1.82 continue to monitor cont lasix monitor I/O daily weights avoid nephrotoxins (5) Diabetes mellitus Current Visit: Yes Status: Chronic Assessment and Plan: accucheck ac/hs SSI -increased insulin to medium coverage-glucose improved continue to monitor (6) Hypertension Current Visit: Yes Status: Chronic Assessment and Plan: cont home meds (7) Falls frequently Current Visit: No Status: Acute Assessment and Plan: Patient expresses anxiety and fear of possibly falling at home he does use a walker however he does have neuropathy-as well as chronic back pain he states he recently it has been more difficult for him to ambulate and that he has had falls in the past. We will consult PT/OT PTOT recommending home health social media senior associate consult - Time Spent with Patient Total time spent is greater than 50% in coordination of care (as documented) at patient's floor/unit and/or counseling patient: Internal Medicine: Result - Labs CBC & Chem 7: 11/18/18 03:33 11/18/18 03:33 Labs: Short CBC 11/18/18 Range/Units 03:33 WBC 5.8 (4.3-11.1) K/mcL Hgb 11.8 L (12.9-16.9) g/dL Hct 35.7 L (37.5-50.1) % Plt Count 170 (140-400) K/mcL Neutrophils # 3.7 (1.6-8.9) K/mcL BMP 11/18/18 03:33 Sodium 142 Potassium 3.7 Chloride 104 Carbon Dioxide 30 H BUN 38 H Creatinine 1.82 H Glucose 304 H Calcium 9.0 Urine 11/17/18 Range/Units 18:10 Urine Color Yellow (Yellow) Urine Clarity Clear (Clear) Urine pH 6.0 (5.0-8.0) pH Units Ur Specific [place] 1.016 (1.010-1.025) Urine Protein 30 H (Neg-Trace) mg/dL Urine Glucose (UA) 250 H (Normal) mg/dL - ABG Interpretation ABG results: PT/INR, D-dimer PT 10.9 Seconds (9.4-12.1) 11/14/18 23:51 1263 ng/mLFEU (0-500) H 11/14/18 23:51 Consult Discharge Plan - Plan Referrals: DONAVAN,PCP [Primary Care Provider] - 11/23/18 2:45 pm (1) Chest pain Qualifiers: Chest pain type: unspecified Qualified Code(s): R07.9 - Chest pain, unspecified (5) Diabetes mellitus Qualifiers: Diabetes mellitus type: type 2 Diabetes mellitus group home insulin use: unspecified group home insulin use status Diabetes mellitus complication status: with kidney complications Diabetes mellitus complication detail: with chronic kidney disease Chronic kidney disease stage: stage 3 (moderate) Qualified Code(s): E11.22 - Type 2 diabetes mellitus with diabetic chronic kidney disease; N18.3 - Chronic kidney disease, stage 3 (moderate) (6) Hypertension Qualifiers: Hypertension type: essential hypertension Qualified Code(s): I10 - Essential (primary) hypertension
[2018-11-18] MEDS: Furosemide 20 MG TABLET PO SCH (17:24)
[2018-11-18] MEDS: Melatonin 3 MG TABLET PO SCH (20:47)
[2018-11-19] MEDS: Ipratropium/Albuterol Neb 3 ML IH SCH ×4 (04:32→22:20)
[2018-11-19 05:32] LABS: Basophils # 0.1 K/mcL (0.0-0.2); Basophils % 1.1 %; Eosinophils # 0.4 K/mcL (0.0-0.6); Eosinophils % 5.6 %; Hematocrit 37.1 % (37.5-50.1); Hemoglobin 12.1 g/dL (12.9-16.9); Immature Granulocytes % 0.3 % (0-4); Lymphocytes # 1.5 K/mcL (0.6-4.6); Lymphocytes % 23.7 %; Mean Corpuscular HGB Conc 32.6 g/dL (31.6-35.5); Mean Corpuscular Hemoglobin 30.1 pg (28.0-33.3); Mean Corpuscular Volume 92.3 fL (83.0-100.0); Mean Platelet Volume 11.5 fL (9.4-12.4); Monocytes # 0.5 K/mcL (0.0-1.3); Monocytes % 7.4 %; Neutrophils # 3.8 K/mcL (1.6-8.9); Platelet Count 182 K/mcL (140-400); Red Blood Count 4.02 M/mcL (4.19-5.50); Red Cell Distribution Width 14.4 % (11.5-14.5); Segmented Neutrophils % 61.9 %
[2018-11-19] MEDS: *HR* Heparin 5,000 UNIT/ML VIAL SQ SCH ×2 (05:33→17:03)
[2018-11-19 05:55] LABS: Calcium 9.1 mg/dL (8.6-10.3); Potassium 4.2 mEq/L (3.5-5.1)
[2018-11-19] MEDS: Insulin LISPRO 300 UNITS/3 ML VIAL SQ SCH ×3 (07:26→17:03)
[2018-11-19] MEDS: Pregabalin 75 MG CAPSULE PO SCH ×2 (08:40→21:30)
[2018-11-19] MEDS: Aspirin Enteric Coated 325 MG Tablet PO SCH (08:40)
[2018-11-19] MEDS: Baclofen 10 MG TABLET PO SCH ×2 (08:41→21:30)
[2018-11-19] MEDS: Furosemide 40 MG TABLET PO SCH (08:41)
[2018-11-19] MEDS: Isosorbide MONOnitrate (24 HR) 30 MG TAB.ER.24H PO SCH (08:41)
[2018-11-19] MEDS: amLODIPine 5 MG TABLET PO SCH (08:41)
[2018-11-19] MEDS: Metoprolol XL (24 HR) Succ 25 MG TAB.ER.24H PO SCH (08:41)
[2018-11-19] MEDS: *HR* HYDROcodone/Acet 5/325 mg TABLET PO PRN ×2 (08:43→20:00)
--- NOTE | 2018-11-19 15:28 | Discharge Summary ---
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 Severino is a 63 year old male - Time Spent with Patient Total time spent providing and/or coordinating discharge services: - Discharge Medications Prescriptions: No Action Melatonin [Melatin] 9 mg PO HS Pregabalin [Lyrica] 150 mg PO BID Baclofen 20 mg PO BID Bisacodyl [Dulcolax] 10 mg PO BID PRN PRN Reason: Constipation Cholecalciferol (D-3) [Vitamin D] 1,000 unit PO DAILY Cyanocobalamin (Vitamin B-12) [Vitamin B12] 1,000 mcg PO BID Diclofenac Sodium [Voltaren] 2 gm TP QID Lidocaine [Anecream] 1 appl RC Q4H PRN PRN Reason: Pain/Itching/Burning Lidocaine Patch [Lidoderm 5% patch] 1 patch TP DAILY PRN PRN Reason: Pain Tamsulosin [Flomax] 0.4 mg PO DAILY Insulin Glargine [Lantus] 30 unit SQ BID Furosemide [Lasix] 40 mg PO DAILY Atorvastatin Calcium [Lipitor] 10 mg PO HS Furosemide [Lasix] 20 mg PO QPM Insulin Regular, Human [Novolin R] 12 unit SQ TIDWM Ipratropium/Albuterol Sulfate [Iprat-Albut 0.5-3(2.5) mg/3 ml] 3 ml IH Q6H PRN PRN Reason: Shortness Of Breath Sertraline [Zoloft] 200 mg PO DAILY OxyCODONE/APAP 5/325 [Percocet 5/325 MG] 1 tab PO Q6H PRN PRN Reason: Pain Buprenorphine [Butrans] 20 mcg TP QWEEK Home Medications: Melatonin [Melatin] 9 mg PO HS 06/19/15 [History] Baclofen 20 mg PO BID 02/20/17 [History] Pregabalin [Lyrica] 150 mg PO BID 02/20/17 [History] Bisacodyl [Dulcolax] 10 mg PO BID PRN 10/30/17 [History] Cholecalciferol (D-3) [Vitamin D] 1,000 unit PO DAILY 10/30/17 [History] Cyanocobalamin (Vitamin B-12) [Vitamin B12] 1,000 mcg PO BID 10/30/17 [History] Diclofenac Sodium [Voltaren] 2 gm TP QID 10/30/17 [History] Lidocaine Patch [Lidoderm 5% patch] 1 patch TP DAILY PRN 10/30/17 [History] Lidocaine [Anecream] 1 appl RC Q4H PRN 10/30/17 [History] Tamsulosin [Flomax] 0.4 mg PO DAILY 10/30/17 [History] Furosemide [Lasix] 40 mg PO DAILY 11/14/18 [History] Insulin Glargine [Lantus] 30 unit SQ BID 11/14/18 [History] Atorvastatin Calcium [Lipitor] 10 mg PO HS 11/15/18 [History] Buprenorphine [Butrans] 20 mcg TP QWEEK 11/15/18 [History] Furosemide [Lasix] 20 mg PO QPM 11/15/18 [History] Insulin Regular, Human [Novolin R] 12 unit SQ TIDWM 11/15/18 [History] Ipratropium/Albuterol Sulfate [Iprat-Albut 0.5-3(2.5) mg/3 ml] 3 ml IH Q6H PRN 11/15/18 [History] OxyCODONE/APAP 5/325 [Percocet 5/325 MG] 1 tab PO Q6H PRN 11/15/18 [History] Sertraline [Zoloft] 200 mg PO DAILY 11/15/18 [History] Allergies/Adverse Reactions: Allergy/AdvReac Type Severity Reaction Status Date / Time adhesive tape Allergy Hives Verified 02/20/17 14:17 Date of admission: 11/15/18 19:20 Primary care physician: PCP DONAVAN Consults: 11/15/18 00:57 Consult to Neurology [CONS] Routine Consulting Provider: Neurology [facility] Reason for Consult: patient presenting with new onset tremor and dyskinetic movements of upper extremities Call Completed: No 11/15/18 07:40 Consult to Cardiology [CONS] Routine Comment: Consulting Provider: Cardiology [place] Reason for Consult: cp Time Notified: 07:40 Call Completed: Yes 11/16/18 10:15 Consult to Physical Therapy [CONS] Routine Comment: Evaluate, develop and implement POC Reason for Consult: falls difficulty ambualting Does patient have active BEDREST order?: No Is patient medically & hemodynamically stable?: Yes Patient assessed for mobility or mobilized this visit?: Yes 11/16/18 10:18 Consult to Occupational Therapy [CONS] Routine Comment: Evaluate, develop and implement POC Reason for Consult: frequent falls Does patient have active BEDREST order?: No Is patient medically & hemodynamically stable?: Yes Patient assessed for mobility or mobilized this visit?: Yes - Constitutional Vitals: Temp Pulse Resp BP Pulse Ox 97.5 F L 68 14 150/75 92 11/19/18 11:40 11/19/18 11:40 11/19/18 11:40 11/19/18 11:40 11/19/18 11:40 - Patient Status Condition: Fair - Discharge Instructions Follow Up With: DONAVANPCP [Primary Care Provider] - 11/23/18 2:45 pm
[2018-11-19] MEDS: Furosemide 20 MG TABLET PO SCH (17:04)
[2018-11-19] MEDS: *HR* OxyCODONE Immed Rel 5 MG TABLET PO PRN (17:07)
--- NOTE | 2018-11-19 17:58 | Internal Med Progress Note ---
Hospitalist Progress Note - Encounter Date of Encounter: 11/19/18 Time of Encounter: 17:56 - Subjective Interval History: Patient seen and examined at bedside discussed results of stress test with the patient and advised him that he can be discharged home and follow-up with primary care provider. Patient states that he feels he is not ready to go home he continues to have tremors. Discussed with patient that neurology stated that he might have essential tremor but no medication at this time patient states he does not feel safe to go home. Discussed with protective services case worker we will attempt to contact [facility] in the morning possible placement - Exam Vitals: Temp Pulse Resp BP Pulse Ox 98.2 F 69 19 121/90 94 11/19/18 16:51 11/19/18 16:51 11/19/18 16:51 11/19/18 16:51 11/19/18 16:51 Exam: General: Obese white man lying in bed in NAD Skin: Dry, warm HEENT: Moist mucous membranes. No conjunctivae pallor. Neck: No lymphadenopathy. No JVD. No carotid bruits. No palpable thyroid. Chest: Normal thoracic expansion. Normal breath sounds. Clear to auscultation. Heart: Normal S1 & S2; rhythmic. No rubs or murmurs. Abdomen: Non-distended, soft and non-tender to palpation. No peritoneal reaction. Extremities: No calf tenderness. Normal distal pulses. Neurological: Awake, alert and oriented to person, place and time. Right hand fine tremor Psych: Affect flat. - Assessment and Plan (1) Chest pain Current Visit: Yes Status: Acute Assessment and Plan: Denies any chest pain at this time He did have elevated D dimer - VQ scan low probably -cardiology consulted - stress test was negative for any ischemia or infarct troponins-0.5,0.4,0.4 cont cardiac montoring nitro as needed (2) DVT prophylaxis Current Visit: Yes Status: Acute Assessment and Plan: heparin subque (3) Tremor Current Visit: Yes Status: Acute Assessment and Plan: seen by neurology- per neurology - asterixis secondary to resp failure and also worsening kidney function- tremors almost resolved- very faint tremor- continue medical treatment support patient will need follow-up with neurology as outpatient either with [facility] or [place] -Or initial assessment this morning it did not note any tremors however this evening patient states he has tremors in his hands he does not feel safe to go home-he does have a slight elevation in his creatinine we will hold Lasix -Contact the protective services case worker who will discuss [facility] for possible [facility] (4) CKD (chronic kidney disease), stage III Current Visit: Yes Status: Chronic Assessment and Plan: 1 did have an elevation on presentation -2.29 -did trend downward <2 however did elevate today at 2.00 we will hold Lasix and give fluid Hold lasix monitor I/O daily weights avoid nephrotoxins (5) Diabetes mellitus Current Visit: Yes Status: Chronic Assessment and Plan: accucheck ac/hs SSI -we will continue with basal and low-dose sliding scale insulin (6) Hypertension Current Visit: Yes Status: Chronic Assessment and Plan: cont home meds (7) Falls frequently Current Visit: No Status: Acute Assessment and Plan: Patient expresses anxiety and fear of possibly falling at home he does use a walker however he does have neuropathy-as well as chronic back pain he states he recently it has been more difficult for him to ambulate and that he has had falls in the past. We will consult PT/OT PTOT recommending home health certified social workers in health care consult-patient states he does not feel safe going home contacts initial services for possible placement - Time Spent with Patient Total time spent is greater than 50% in coordination of care (as documented) at patient's floor/unit and/or counseling patient: Internal Medicine: Result - Labs CBC & Chem 7: 11/19/18 04:47 11/19/18 04:47 Labs: Short CBC 11/19/18 Range/Units 04:47 WBC 6.2 (4.3-11.1) K/mcL Hgb 12.1 L (12.9-16.9) g/dL Hct 37.1 L (37.5-50.1) % Plt Count 182 (140-400) K/mcL Neutrophils # 3.8 (1.6-8.9) K/mcL BMP 11/19/18 04:47 Sodium 140 Potassium 4.2 Chloride 101 Carbon Dioxide 30 H BUN 40 H Creatinine 2.06 H Glucose 354 H Calcium 9.1 - ABG Interpretation ABG results: PT/INR, D-dimer PT 10.9 Seconds (9.4-12.1) 11/14/18 23:51 1263 ng/mLFEU (0-500) H 11/14/18 23:51 Consult Discharge Plan - Plan Referrals: DONAVANPCP [Primary Care Provider] - 11/23/18 2:45 pm (1) Chest pain Qualifiers: Chest pain type: unspecified Qualified Code(s): R07.9 - Chest pain, unspecified (5) Diabetes mellitus Qualifiers: Diabetes mellitus type: type 2 Diabetes mellitus intermediate frame tender insulin use: unspecified snf insulin use status Diabetes mellitus complication status: with kidney complications Diabetes mellitus complication detail: with chronic kidney disease Chronic kidney disease stage: stage 3 (moderate) Qualified Code(s): E11.22 - Type 2 diabetes mellitus with diabetic chronic kidney disease; N18.3 - Chronic kidney disease, stage 3 (moderate) (6) Hypertension Qualifiers: Hypertension type: essential hypertension Qualified Code(s): I10 - Essential (primary) hypertension
[2018-11-19] MEDS ORDERED: Insulin LISPRO 300 UNITS/3 ML VIAL SQ SCH (21:00)
[2018-11-19] MEDS ORDERED: NON-FORMULARY MEDICATION 1 EACH EACH (Insulin Glargine [Lantus] 30 UNIT) SQ SCH (21:00)
[2018-11-19] MEDS: Melatonin 3 MG TABLET PO SCH (21:30)
[2018-11-19] MEDS: Insulin DETEMIR 100 UNIT/ML X5UNITS SQ SCH (21:31)
[2018-11-20] MEDS: Ipratropium/Albuterol Neb 3 ML IH SCH ×3 (04:13→16:02)
[2018-11-20] MEDS: *HR* OxyCODONE Immed Rel 5 MG TABLET PO PRN (04:17)
[2018-11-20 05:08] LABS: Calcium 9.4 mg/dL (8.6-10.3); Potassium 4.6 mEq/L (3.5-5.1)
[2018-11-20] MEDS: *HR* Heparin 5,000 UNIT/ML VIAL SQ SCH (05:43)
[2018-11-20] MEDS: *HR* HYDROcodone/Acet 5/325 mg TABLET PO PRN (05:47)
[2018-11-20] MEDS: Insulin LISPRO 300 UNITS/3 ML VIAL SQ SCH ×2 (07:48→12:11)
[2018-11-20] MEDS: Isosorbide MONOnitrate (24 HR) 30 MG TAB.ER.24H PO SCH (07:49)
[2018-11-20] MEDS: amLODIPine 5 MG TABLET PO SCH (07:49)
[2018-11-20] MEDS: Pregabalin 75 MG CAPSULE PO SCH (07:49)
[2018-11-20] MEDS: Baclofen 10 MG TABLET PO SCH (07:50)
[2018-11-20] MEDS: Aspirin Enteric Coated 325 MG Tablet PO SCH (07:50)
[2018-11-20] MEDS: Metoprolol XL (24 HR) Succ 25 MG TAB.ER.24H PO SCH (07:50)
[2018-11-20] MEDS: Insulin DETEMIR 100 UNIT/ML X5UNITS SQ SCH (08:13)
--- NOTE | 2018-11-20 15:44 | Discharge Summary ---
- NOTES TO OUTPATIENT PROVIDER Notes to Outpatient Provider: Patient presented from [facility] urgent care after expressing chest pain earlier in the day while at the [facility] he did have a hypoxic episode with O2 sats in the 70s and was cyanotic and required IV Narcan. Patient was wearing a buprenorphine patch. Cardiac workup was negative on pr esentation he was displaying tremors of upper extremities stasis been going on for about 2 days before presentation was seen by neurology suspect metabolic in nature possible essential tremor will need to follow-up with neurology as outpatient no medications at this time. Underwent cardiac stress test which was negative for any ischemia or infarct Orders not resulted at time of discharge: Pending orders 11/18/18 09:00 [facility] eros perf SPECT multi [[facility]] Routine Date of Encounter: 11/20/18 Time of Encounter: 15:36 - Discharge Diagnosis (1) Chest pain Priority: Primary Status: Acute Qualifiers: Chest pain type: unspecified Qualified Code(s): R07.9 - Chest pain, unspecified (2) Tremor Priority: Secondary Status: Acute (3) CKD (chronic kidney disease), stage III Priority: Secondary Status: Chronic (4) Diabetes mellitus Priority: Secondary Status: Chronic Qualifiers: Diabetes mellitus type: type 2 Diabetes mellitus fci insulin use: unspecified fci insulin use status Diabetes mellitus complication status: with kidney complications Diabetes mellitus complication detail: with chronic kidney disease Chronic kidney disease stage: stage 3 (moderate) Qualified Code(s): E11.22 - Type 2 diabetes mellitus with diabetic chronic kidney disease; N18.3 - Chronic kidney disease, stage 3 (moderate) (5) Hypertension Priority: Secondary Status: Chronic Qualifiers: Hypertension type: essential hypertension Qualified Code(s): I10 - Essential (primary) hypertension (6) Falls frequently Priority: Secondary Status: Acute Hospital course: Mr. Severino is a 63 year old male past history of hypertension diabetes chronic kidney disease originally presented to [facility] urgent care for evaluation chest pain while at the urgent care troponin was upper limit of normal he was found to be hypoxic with oxygen saturations in the 70s and cyanotic with pinpoint pupils he was given IV Narcan and symptoms resolved. She was noted to be wearing a buprenorphine patch . EKG with no ST-T abnormalities. He was transferred to [facility] ED for further work up and evaluation he was noted to have upper extremity tremors which she states has been going on for the past few days prior to presentation. CT was unremarkable cardiology and neurology were consulted he did have an elevated d-dimer he was unable to undergo CTA due to see KD VQ scan was low probability of PE. Venous duplex was negative cardiac echo EF of 65% Jennifer dilated left ventricle atypical septal wall motion with bundle-branch block. He did undergo a nuclear stress test which is negative for any ischemia or infarct. Neurology-significant bilateral asterixis which is improved after medical treatment.no evidence of Parkinson disease. there may be a component of essential tremors that can be aggravated by medical conditions and anxiety. Would not recommend pharmacological treatment at this time. Patient did experience a traumatic event and had a recent of son -has been depressed however denies any suicidal ideations Will need follow-up with neurology for tremors at [facility] or [place]-tremors eventually resolved-patient was evaluated by PT and OT recommending home health patient did complain of lower back pain which is chronic Omega's been intubated without any difficulty able to bend and sit in chair without difficulty. Currently patient does not display any tremor activity denies any chest pain is hemodynamically stable and ready for discharge this time. I did advise the patient to follow-up with primary care provider as well as neurology verbalized understanding. - Time Spent with Patient Total time spent providing and/or coordinating discharge services: - Discharge Medications Prescriptions: Continued Melatonin [Melatin] 9 mg PO HS Pregabalin [Lyrica] 150 mg PO BID Baclofen 20 mg PO BID Bisacodyl [Dulcolax] 10 mg PO BID PRN PRN Reason: Constipation Cholecalciferol (D-3) [Vitamin D] 1,000 unit PO DAILY Cyanocobalamin (Vitamin B-12) [Vitamin B12] 1,000 mcg PO BID Diclofenac Sodium [Voltaren] 2 gm TP QID Lidocaine [Anecream] 1 appl RC Q4H PRN PRN Reason: Pain/Itching/Burning Lidocaine Patch [Lidoderm 5% patch] 1 patch TP DAILY PRN PRN Reason: Pain Tamsulosin [Flomax] 0.4 mg PO DAILY Insulin Glargine [Lantus] 30 unit SQ BID Furosemide [Lasix] 40 mg PO DAILY Atorvastatin Calcium [Lipitor] 10 mg PO HS Furosemide [Lasix] 20 mg PO QPM Insulin Regular, Human [Novolin R] 12 unit SQ TIDWM Ipratropium/Albuterol Sulfate [Iprat-Albut 0.5-3(2.5) mg/3 ml] 3 ml IH Q6H PRN PRN Reason: Shortness Of Breath Sertraline [Zoloft] 200 mg PO DAILY OxyCODONE/APAP 5/325 [Percocet 5/325 MG] 1 tab PO Q6H PRN PRN Reason: Pain Buprenorphine [Butrans] 20 mcg TP QWEEK Home Medications: Melatonin [Melatin] 9 mg PO HS 06/19/15 [History] Baclofen 20 mg PO BID 02/20/17 [History] Pregabalin [Lyrica] 150 mg PO BID 02/20/17 [History] Bisacodyl [Dulcolax] 10 mg PO BID PRN 10/30/17 [History] Cholecalciferol (D-3) [Vitamin D] 1,000 unit PO DAILY 10/30/17 [History] Cyanocobalamin (Vitamin B-12) [Vitamin B12] 1,000 mcg PO BID 10/30/17 [History] Diclofenac Sodium [Voltaren] 2 gm TP QID 10/30/17 [History] Lidocaine Patch [Lidoderm 5% patch] 1 patch TP DAILY PRN 10/30/17 [History] Lidocaine [Anecream] 1 appl RC Q4H PRN 10/30/17 [History] Tamsulosin [Flomax] 0.4 mg PO DAILY 10/30/17 [History] Furosemide [Lasix] 40 mg PO DAILY 11/14/18 [History] Insulin Glargine [Lantus] 30 unit SQ BID 11/14/18 [History] Atorvastatin Calcium [Lipitor] 10 mg PO HS 11/15/18 [History] Buprenorphine [Butrans] 20 mcg TP QWEEK 11/15/18 [History] Furosemide [Lasix] 20 mg PO QPM 11/15/18 [History] Insulin Regular, Human [Novolin R] 12 unit SQ TIDWM 11/15/18 [History] Ipratropium/Albuterol Sulfate [Iprat-Albut 0.5-3(2.5) mg/3 ml] 3 ml IH Q6H PRN 11/15/18 [History] OxyCODONE/APAP 5/325 [Percocet 5/325 MG] 1 tab PO Q6H PRN 11/15/18 [History] Sertraline [Zoloft] 200 mg PO DAILY 11/15/18 [History] Allergies/Adverse Reactions: Allergy/AdvReac Type Severity Reaction Status Date / Time adhesive tape Allergy Hives Verified 02/20/17 14:17 Date of admission: 11/15/18 19:20 [facility] care physician: [facility] Consults: 11/15/18 00:57 Consult to Neurology [CONS] Routine Consulting Provider: Neu[facility] Reason for Consult: patient presenting with new onset tremor and dyskinetic movements of upper extremities Call Completed: No 11/15/18 07:40 Consult to Cardiology [CONS] Routine Comment: Consulting Provider: [facility] Reason for Consult: cp Time Notified: 07:40 Call Completed: Yes 11/16/18 10:15 Consult to Physical Therapy [CONS] Routine Comment: Evaluate, develop and implement POC Reason for Consult: falls difficulty ambualting Does patient have active BEDREST order?: No Is patient medically & hemodynamically stable?: Yes Patient assessed for mobility or mobilized this visit?: Yes 11/16/18 10:18 Consult to Occupational Therapy [CONS] Routine Comment: Evaluate, develop and implement POC Reason for Consult: frequent falls Does patient have active BEDREST order?: No Is patient medically & hemodynamically stable?: Yes Patient assessed for mobility or mobilized this visit?: Yes Discharging clinician: Stephanie Hutchison Anticipated date of discharge: 11/20/18 - Constitutional Vitals: Temp Pulse Resp BP Pulse Ox 97.5 F L 62 16 131/71 94 11/20/18 11:40 11/20/18 11:40 11/20/18 11:40 11/20/18 11:40 11/20/18 11:40 Exam: Skin: Free of rash and discoloration. Eyes: Sclera is white. There is no discharge from eyes. ENMT: Oral/pharyngeal mucosa is normal in appearance. There is no discharge from nose or ears. Respiratory: Normal breath sounds with no crackles and wheezes bilaterally. CV: Heart is regular with no gallop or murmur. GI: Abdomen is flat and soft with no palpable mass or visceromegaly. : There is no tenderness in patient's flanks bilaterally. Neuro exam: He has good strength in upper and lower extremities. He has normal eye movements. Psychiatric: He has normal affect. His thought process is appropriate to the situation. - Patient Status Disposition: Home Health Service Condition: Fair Functional capacity at discharge: independent ambulation Overall status at discharge: patient is back to baseline - Discharge Instructions Follow Up With: DONAVAN,PCP [Primary Care Provider] - 11/23/18 2:45 pm - Diet and Activity Activity: increase activity as tolerated Diet: advance to your usual diet
[2018-11-20 15:50] VITALS: BP 152/77
--- NOTE | 2018-11-20 17:44 | Physician Discharge Referral ---
Home Health/Hosp Referral Info Transfer to: Home Health Attending Provider: Tila Hutchison Provider in Charge Post Discharge: PCP - Diagnosis (1) Chest pain Priority: Primary Status: Acute (2) Tremor Priority: Secondary Status: Acute (3) CKD (chronic kidney disease), stage III Priority: Secondary Status: Chronic (4) Diabetes mellitus Priority: Secondary Status: Chronic (5) Hypertension Priority: Secondary Status: Chronic (6) Falls frequently Priority: Secondary Status: Acute - Respiratory Orders Smoking Cessation: Smoking cessation has been advised. For more information, call the [place] Tobacco Quit Line at 4-459-YPIZ-NOW. - Diet/Nutrition Diet/Nutrition Orders: Cardiac, No Concentrated Sweets - Activity Activity Orders: Up ad gavin - Services Needed Following services are medically necessary services: Nursing, Physical Therapy - Transfer Medications Home Medications: Melatonin [Melatin] 9 mg PO HS 06/19/15 [History] Baclofen 20 mg PO BID 02/20/17 [History] Pregabalin [Lyrica] 150 mg PO BID 02/20/17 [History] Bisacodyl [Dulcolax] 10 mg PO BID PRN 10/30/17 [History] Cholecalciferol (D-3) [Vitamin D] 1,000 unit PO DAILY 10/30/17 [History] Cyanocobalamin (Vitamin B-12) [Vitamin B12] 1,000 mcg PO BID 10/30/17 [History] Diclofenac Sodium [Voltaren] 2 gm TP QID 10/30/17 [History] Lidocaine Patch [Lidoderm 5% patch] 1 patch TP DAILY PRN 10/30/17 [History] Lidocaine [Anecream] 1 appl RC Q4H PRN 10/30/17 [History] Tamsulosin [Flomax] 0.4 mg PO DAILY 10/30/17 [History] Furosemide [Lasix] 40 mg PO DAILY 11/14/18 [History] Insulin Glargine [Lantus] 30 unit SQ BID 11/14/18 [History] Atorvastatin Calcium [Lipitor] 10 mg PO HS 11/15/18 [History] Buprenorphine [Butrans] 20 mcg TP QWEEK 11/15/18 [History] Furosemide [Lasix] 20 mg PO QPM 11/15/18 [History] Insulin Regular, Human [Novolin R] 12 unit SQ TIDWM 11/15/18 [History] Ipratropium/Albuterol Sulfate [Iprat-Albut 0.5-3(2.5) mg/3 ml] 3 ml IH Q6H PRN 11/15/18 [History] OxyCODONE/APAP 5/325 [Percocet 5/325 MG] 1 tab PO Q6H PRN 11/15/18 [History] Sertraline [Zoloft] 200 mg PO DAILY 11/15/18 [History] Allergies/Adverse Reactions: Allergy/AdvReac Type Severity Reaction Status Date / Time adhesive tape Allergy Hives Verified 02/20/17 14:17 Certification: Further, I certify that my clinical findings support that this patient is homebound (i.e. absences from home require considerable and taxing effort and are for medical reasons or muslim services or infrequently or short duration when for other reasons) because: Homebound Reason: Leaving home requires considerable and taxing effort due to condition Attestation: My signature below is to certify that this patient is under my care and that I, or nurse practitioner, or a physician's accounting administrative assistant working with me, has a [id number] encounter with this patient.
== END 2018-11-20 17:38 | disposition home health service (06) | DRG 313 ==
LOC: 3BNU 21:02 → EMEROOARM 21:02 → 3BNU 23:59
PROVIDERS: ADMIT Internal Medicine; ATTEND Internal Medicine